=== PATIENT | male | born 1935 | race Caucasian/White ===

== ENCOUNTER → 2018-08-31 | Outpatient (CLI) | payer MEDICARE ==
[~2018-08-31] MED LIST: /PANT40TA OR; /WARF25TA OR; /WARF5TA OR; ACET25TA12 PO; ACET65TA OR; ALEV220T26 PO; ATOR40TA75 PO; BENA20TA8 PO; BENZEPRIL; BENZEPRIL OR; DOCU100C16 PO; FLOM0.4C39 PO; HYDR25TA6 OR; HYDR25TAB PO; LEVO88TA4 OR; MULTIVIT; PERC5TAB8 OR; PERC7.5T8 OR; PRAV20TA2 OR; SIMV10TA2 OR; SIMV40TA2 PO; STOOL SOFTNER OR; VIT D 2000; VITA50005 PO; [UNRECOGNIZED DRUG - OTHER]; aleve; stool softner
--- NOTE | 2018-08-31 20:17 | REP ---
Right hip four views: Comparison is 03/26/2016. There is demineralization. There is markedly advanced osteoarthritis with acetabular and femoral head deformity and large osteophytes. There is virtually no remaining joint space. There is no significant interval change. Impression: Markedly advanced deforming osteoarthritis. Left hip four views: Comparison is 2015. There is a total hip arthroplasty with the components tightly applied and in in satisfactory position alignment on all views. There is demineralization. No fracture or dislocation. No interval change. Electronically Signed by Florencio Chun MD 08/31/2018 08:09 P
== END ==
LOC: M WUC 19:18
PROVIDERS: ATTEND Physician Assistant
DX: M13.851 Other specified arthritis, right hip (principal); Z96.641 Presence of right artificial hip joint

== ENCOUNTER 2018-09-01 13:01 | Emergency (ER) | payer MEDICARE ==
[~2018-09-01] VITALS: Ht 167.6 cm; Wt 79.6 kg
[~2018-09-01 13:01] MED LIST changes: -ACET25TA12 PO; -SIMV40TA2 PO; -VITA50005 PO
[2018-09-01] MEDS ORDERED: VITA50005 PO (13:22)
[2018-09-01] MEDS ORDERED: SIMV40TA2 PO (13:22)
[2018-09-01] MEDS ORDERED: ACET25TA12 PO (13:22)
[2018-09-01 14:45] LABS: BASO % 0.5 % (0.0-1.0); EOS # 0.2 10^3/uL (0.0-0.50); HEMATOCRIT 40.4 % (42.0-52.0); HEMOGLOBIN 13.3 g/dl (13.5-17.5); LYMPH # 1.1 10^3/uL (1.5-4.5); LYMPH % 14.7 % (24.0-44.0); MEAN CORPUSCULAR HGB CONC 32.9 g/dl (32.0-36.5); MEAN CORPUSCULAR VOLUME 97.1 fl (80.0-96.0); MONO # 0.8 10^3/uL (0.0-0.8); MONO % 10.8 % (0.0-5.0); NEUTROPHILS # 5.3 10^3/uL (1.8-7.7); NEUTROPHILS % 71.9 % (36.0-66.0); PLATELET COUNT, AUTOMATED 262 10^3/uL (150-450); RED BLOOD COUNT 4.16 10^6/uL (4.30-6.10); WHITE BLOOD COUNT 7.4 10^3/uL (4.0-10.0)
[2018-09-01 14:46] LABS: VENOUS BASE EXCESS 1.2 (-2.0-2.0); VENOUS HCO3 29.1 MEQ/L (23.0-27.0); VENOUS O2 SATURATION 55.8 % (60.0-80.0); VENOUS PARTIAL PRESSURE CO2 60.2 mmHg (38.0-50.0); VENOUS PARTIAL PRESSURE O2 31.2 mmHg (30.0-50.0); VENOUS PH 7.302 UNITS (7.330-7.430); VENOUS STANDARD HCO3 24.5 MEQ/L; VENOUS TOTAL CO2 30.9 MEQ/L (24.0-28.0)
[2018-09-01 15:02] LABS: INR 0.92; PROTHROMBIN TIME 12.5 SECONDS (12.1-14.4)
--- NOTE | 2018-09-01 15:05 | REP ---
PORTABLE CHEST: Two AP portable views of the chest are performed. COMPARISON: 03/25/2016. The heart is upper limits of normal in size. There is mild increase in the bibasilar interstitial markings which is unchanged and chronic in nature. No new infiltrate is seen. Mediastinal silhouette is unchanged. IMPRESSION: No acute pulmonary disease. Electronically Signed by Florencio Julio MD 09/01/2018 04:14 P
[2018-09-01 15:19] LABS: ALBUMIN 3.4 GM/DL (3.2-5.2); ALT/SGPT 23 U/L (12-78); BILIRUBIN,DIRECT 0.2 MG/DL (0.0-0.2); BILIRUBIN,TOTAL 0.4 MG/DL (0.2-1.0); BLOOD UREA NITROGEN 23 MG/DL (7-18); CALCIUM LEVEL 8.5 MG/DL (8.8-10.2); CARBON DIOXIDE LEVEL 29 MEQ/L (21-32); CHLORIDE LEVEL 104 MEQ/L (98-107); CREATININE FOR GFR 0.96 MG/DL (0.70-1.30); GLOMERULAR FILTRATION RATE > 60.0 (>35); GLUCOSE, FASTING 94 MG/DL (70-100); NT-PRO BNP 169 PG/ML (<450); POTASSIUM SERUM 4.3 MEQ/L (3.5-5.1); SODIUM LEVEL 139 MEQ/L (136-145); TOTAL PROTEIN 6.6 GM/DL (6.4-8.2)
[2018-09-01 16:00] VITALS: BP 155/72
--- NOTE | 2018-09-02 19:24 | ECGEPIP ---
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
== END 2018-09-01 16:17 | disposition home or self-care (01) ==
LOC: M ED 13:01
DX: R60.0 Localized edema (principal)

== ENCOUNTER 2018-10-30 13:59 | Inpatient (IN) | payer MEDICARE ==
[~2018-10-30] VITALS: Ht 172.7 cm; Wt 84.7 kg
[~2018-10-30 13:59] MED LIST changes: -/PANT40TA OR; -/WARF25TA OR; -/WARF5TA OR; +ACET25TA12 PO; +COUM1TAB17 OR; +COUM1TAB18 OR; +HYDR-2541 PO; -HYDR25TAB PO; +PROT1TAB2 OR; +SIMV40TA2 PO; +VITA50005 PO
[2018-10-30] MEDS ORDERED: KEFL500C17 PO (15:14)
[2018-10-30 17:57] LABS: BASO % 0.4 % (0.0-1.0); EOS # 0.5 10^3/uL (0.0-0.50); EOS % 6.7 % (0.0-3.0); HEMATOCRIT 40.5 % (42.0-52.0); HEMOGLOBIN 13.1 g/dl (13.5-17.5); LYMPH # 1.4 10^3/uL (1.5-4.5); LYMPH % 19.7 % (24.0-44.0); MEAN CORPUSCULAR HEMOGLOBIN 31.5 pg (27.0-33.0); MEAN CORPUSCULAR HGB CONC 32.3 g/dl (32.0-36.5); MEAN CORPUSCULAR VOLUME 97.4 fl (80.0-96.0); MONO # 0.6 10^3/uL (0.0-0.8); MONO % 8.5 % (0.0-5.0); NEUTROPHILS # 4.6 10^3/uL (1.8-7.7); NEUTROPHILS % 64.6 % (36.0-66.0); PLATELET COUNT, AUTOMATED 251 10^3/uL (150-450); RED BLOOD COUNT 4.16 10^6/uL (4.30-6.10); WHITE BLOOD COUNT 7.1 10^3/uL (4.0-10.0)
[2018-10-30 18:16] LABS: ERYTHROCYTE SEDIMENTATION RATE 33 mm/hr (0-20)
[2018-10-30 18:17] LABS: BLOOD UREA NITROGEN 20 MG/DL (7-18); C REACTIVE PROTEIN QUANTITATIV < 0.30 MG/DL (0.00-0.30); CALCIUM LEVEL 8.5 MG/DL (8.8-10.2); CARBON DIOXIDE LEVEL 31 MEQ/L (21-32); CHLORIDE LEVEL 107 MEQ/L (98-107); CREATININE FOR GFR 0.87 MG/DL (0.70-1.30); GLOMERULAR FILTRATION RATE > 60.0 (>35); GLUCOSE, FASTING 91 MG/DL (70-100); POTASSIUM SERUM 4.4 MEQ/L (3.5-5.1); SODIUM LEVEL 140 MEQ/L (136-145)
--- NOTE | 2018-10-30 18:22 | REP ---
REASON: Cough. COMPARISON: Multiple. The latest 09/01/2018. The technique utilized in obtaining the radiograph has magnified the cardiac silhouette and accentuated the interstitial markings. There is no significant change from the prior exam other than technique. The lung baker are hypo-expanded further accentuating the basilar interstitial markings. The pleural angles are sharp. There is cardiomegaly and accentuated by technique. No acute patchy parenchymal opacities have developed. There is no change in the osseous structures. IMPRESSION:Chronic changes. Electronically Signed by Leonardo Durán DO 10/30/2018 06:40 P
--- NOTE | 2018-10-30 18:27 | REP ---
REASON: Pain and swelling. TECHNIQUE: Multiple ultrasonographic images of the deep venous structures of the right thigh were obtained from the common femoral vein to the popliteal vein along with Doppler interrogation and color flow Doppler images. FINDINGS: There is no abnormal echogenic material seen within any of the visualized deep venous structures that would suggest acute thrombosis. Coaptation is unremarkable throughout. Doppler interrogation shows an expected response to respiratory variability and augmentation. The color flow images show what appears to be a normal vascular pattern throughout. Multiple lymph nodes are seen in the groin which need to be correlated clinically. The largest measuring 3.5 x 1.5 x 1.3 cm. IMPRESSION: There is no ultrasonographic evidence of deep venous thrombosis involving any of the visualized deep venous structures of the right thigh, as described above. Electronically Signed by Leonardo Durán DO 10/30/2018 06:45 P
[2018-10-30] MEDS ORDERED: cefTRIAXone SOD 1 GM in D5W MINI-BAG PLUS 50 ML IV ONE (18:30)
[2018-10-30] MEDS ORDERED: IPRATROPIUM 0.5MG/ALBUTEROL 2.5MG INH SOL UD 3ML (DUONEB)(J7620) NEB PRN (19:15)
--- NOTE | 2018-10-30 19:23 | HPEPDOC ---
General Date of Admission 10/30/2018 Chief Complaint The patient is a 83-year-old male who presented to the ER with complaints of right leg redness and swelling History of Present Illness Patient is an 83 -year-old male with a PMHx of HTN, DLP, BPH who presented to the ER with worsening redness of his right leg. Patient noted that in early August, he had fallen and sustained an injury of his left hip and developed an skin injury that developed into an ulcer. At that time, patient was given furosemide and antibiotics and discharge home. Patient was doing well over last several months. Patient had seen Dr. Horner as an outpatient for his left ulcer, however this has completely resolved. The family notes that on patient had redness and swelling of his right leg and foot. [facility] and was prescribed Keflex. A note that there is been no improvement in his redness and swelling. Family denies any fevers; has had chills at home. Patient denies any pain of his right leg, but does report itching. Patient denies chest pain, shortness of breath. Patient does report a cough with sputum production. Describes the sputum as yellow without any evidence of blood. He denies any nausea, vomiting, abdominal pain, constipation, diarrhea or any discomfort with urination. Family does note that the patients urine has been very foul-smelling prior to antibiotics. , However, this appears to have resolved. Patient also wears a condom catheter and has been using it for last few weeks. Patient has noted a poor appetite, however, denies any significant change in his weight. Home Medications Scheduled Acetaminophen/Diphenhydramine (Acetaminophen Pm Caplet) 1 Tab Tab, 1 TAB PO DAILY, (Reported) Benazepril HCl (Benazepril HCl) 20 Mg Tab, 20 MG PO DAILY, (Reported) Cephalexin (Keflex) 500 Mg Capsule, 500 MG PO QID, (Reported) PATIENT STATED THAT HE TOOK LAST DOSE AT 1000 AND WILL NOT BE TAKING ANYMORE. STARTED TAKING IN AUGUST. Ergocalciferol (Vitamin D2) (Vitamin D2) 50,000 Unit Cap, 50,000 UNIT PO Q2WK, (Reported) Simvastatin (Simvastatin) 40 Mg Tab, 40 MG PO DAILY, (Reported) Tamsulosin HCl (Flomax) 0.4 Mg Cap, 0.4 MG PO DAILY, (Reported) Allergies Coded Allergies: No Known Drug Allergies (Verified Allergy, Unknown, 10/30/18) Past Medical History Medical History HTN, DLP, BPH Surgical History Left hip replacement in 2009 Family History - Mother with history of parkinsonism - Father with history of lung cancer Social History - Denies the use of alcohol or illicit drugs; patient is a smoker of about 60 years at 1 PPD - Denies recent travel or sick contacts - Lives with significant other - 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; 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 Review of Systems Other systems 10 point review of systems complete; all negative otherwise stated in HPI Vital Signs - Vitals: BP 145/63, HR 17, RR 17, Sat 98% RA, Temp 97.9F - General: Lying in bed, No acute distress, Speaking in full sentences, AAOx3 - HEENT: NC, AT, PERRLA, EOMI - CVS: RRR, +S1S2 - Lungs: Fair air entry bilaterally, auscultation reveals bilateral wheezing without evidence of rhonchi or rales - Abdomen: Soft, Non-distended, Non-tender - Extremities: 1+ edema at right leg, no edema of L leg, No calf tenderness - Neuro: No focal motor or sensory deficit - Skin: Area of redness around right foot and extending 2/3 up leg Laboratory Data Labs 24H Laboratory Tests 2 10/30/18 17:36: Immature Granulocyte % (Auto) 0.1, White Blood Count 7.1, Red Blood Count 4.16L, Hemoglobin 13.1L, Hematocrit 40.5L, Mean Corpuscular Volume 97.4H, Mean Corpuscular Hemoglobin 31.5, Mean Corpuscular Hemoglobin Concent 32.3, Red Cell Distribution Width 12.8, Platelet Count 251, Neutrophils (%) (Auto) 64.6, Lymphocytes (%) (Auto) 19.7L, Monocytes (%) (Auto) 8.5H, Eosinophils (%) (Auto) 6.7H, Basophils (%) (Auto) 0.4, Neutrophils # (Auto) 4.6, Lymphocytes # (Auto) 1.4L, Monocytes # (Auto) 0.6, Eosinophils # (Auto) 0.5, Basophils # (Auto) 0.0, Nucleated Red Blood Cells % (auto) 0.0, Erythrocyte Sedimentation Rate 33H, Anion Gap 2L, Glomerular Filtration Rate > 60.0, Blood Urea Nitrogen 20H, Creatinine 0.87, Sodium Level 140, Potassium Level 4.4, Chloride Level 107, Carbon Dioxide Level 31, Calcium Level 8.5L, C-Reactive Protein, Quantitative < 0.30 CBC/BMP Laboratory Tests 10/30/18 17:36 Red Blood Count 4.16 L, Mean Corpuscular Volume 97.4 H, Mean Corpuscular Hemoglobin 31.5, Mean Corpuscular Hemoglobin Concent 32.3, Red Cell Distribution Width 12.8, Neutrophils (%) (Auto) 64.6, Lymphocytes (%) (Auto) 19.7 L, Monocytes (%) (Auto) 8.5 H, Eosinophils (%) (Auto) 6.7 H, Basophils (%) (Auto) 0.4, Neutrophils # (Auto) 4.6, Lymphocytes # (Auto) 1.4 L, Monocytes # (Auto) 0.6, Eosinophils # (Auto) 0.5, Basophils # (Auto) 0.0, Calcium Level 8.5 L Microbiology Microbiology 10/30/18 Blood Culture, Received Pending 10/30/18 Blood Culture, Received Pending Plan / VTE VTE Prophylaxis Ordered?: Yes Plan Plan Right lower extremity swelling / redness - likely 2/2 cellulitis, unlikely 2/2 DVT - Presented to the emergency room after he had failed antibiotic therapy as an outpatient - Patient has received [facility] the [facility] has reported that the redness of his leg as progressing upward - Patient remains hemodynamically stable and afebrile - No evidence of leukocytosis; No CRP elevation - Duplex US 10/30: Negative for DVT - Will demarcate area of cellulitis with surgical marker - Will start Ceftaroline (re: MRSA coverage) Wheezing - likely 2/2 obstructive lung disease - Patient has reported a [id number] history of smoking - Reports that he does not use any inhalers as an outpatient - Physical with diffuse expiratory wheezing noted - Saturating well on room air - CXR 10/30: Chronic changes. - Will start Duoneb therapy and Solumedrol 40 q8h HTN - Blood pressure appears moderately controlled - Will c/w Benazapril with holding parameters DLP - c/w Simvastatin BPH - c/w Tamsulosin DVT prophylaxis - Will start LoveLEANNA Burger MD Oct 30, 2018 19:23
[2018-10-30] MEDS ORDERED: methylPREDNISolone INJ 125 MG/2 ML VIAL (J2930) IV SCH (20:00)
[2018-10-30 21:19] VITALS: BP 140/76
[2018-10-30] MEDS: methylPREDNISolone INJ 40 MG/1 ML VIAL (J2920) IV SCH (21:46)
[2018-10-30] MEDS: IPRATROPIUM 0.5MG/ALBUTEROL 2.5MG INH SOL UD 3ML (DUONEB)(J7620) NEB SCH (22:20)
[2018-10-31] MEDS: IPRATROPIUM 0.5MG/ALBUTEROL 2.5MG INH SOL UD 3ML (DUONEB)(J7620) NEB SCH ×4 (01:36→20:14)
[2018-10-31] MEDS: methylPREDNISolone INJ 40 MG/1 ML VIAL (J2920) IV SCH ×3 (05:16→20:12)
[2018-10-31] MEDS: CEFTAROLINE FOSAMIL 600 MG in D5W MINI-BAG PLUS 50 ML IV SCH ×2 (05:16→17:22)
[2018-10-31 06:00] VITALS: BP 131/67
[2018-10-31 06:38] LABS: HEMATOCRIT 38.6 % (42.0-52.0); HEMOGLOBIN 12.6 g/dl (13.5-17.5); MEAN CORPUSCULAR HEMOGLOBIN 31.3 pg (27.0-33.0); MEAN CORPUSCULAR HGB CONC 32.6 g/dl (32.0-36.5); MEAN CORPUSCULAR VOLUME 95.8 fl (80.0-96.0); PLATELET COUNT, AUTOMATED 250 10^3/uL (150-450); RED BLOOD COUNT 4.03 10^6/uL (4.30-6.10); WHITE BLOOD COUNT 6.3 10^3/uL (4.0-10.0)
[2018-10-31 06:57] LABS: BLOOD UREA NITROGEN 22 MG/DL (7-18); CALCIUM LEVEL 8.5 MG/DL (8.8-10.2); CARBON DIOXIDE LEVEL 27 MEQ/L (21-32); CHLORIDE LEVEL 108 MEQ/L (98-107); CREATININE FOR GFR 0.81 MG/DL (0.70-1.30); GLOMERULAR FILTRATION RATE > 60.0 (>35); GLUCOSE, FASTING 154 MG/DL (70-100); POTASSIUM SERUM 4.2 MEQ/L (3.5-5.1); SODIUM LEVEL 143 MEQ/L (136-145)
[2018-10-31] MEDS ORDERED: ENOXAPARIN 40 MG/0.4 ML SYRINGE (J1650) SC SCH (09:00)
[2018-10-31] MEDS: SIMVASTATIN 40 MG TAB PO SCH (09:01)
[2018-10-31] MEDS: TAMSULOSIN 0.4 MG CAP PO SCH (09:01)
[2018-10-31] MEDS: BENAZEPRIL 20 MG TAB PO SCH (09:04)
[2018-10-31] MEDS: NICOTINE 21MG/24HR 1 EA TRANSDERMAL TD SCH (09:04)
[2018-10-31] MEDS ORDERED: ELIQ5TAB PO (10:45)
--- NOTE | 2018-10-31 10:54 | IPNPDOC ---
Date Seen The patient was seen on 10/31/18. Progress Note SUBJECTIVE: Routine EKG this am: new onset AFib rate controlled at 90. echo is pending. pt says,"I want to go home tomorrow. I'm pretty good on my feet." pt denies any history of falls at home. started on eliquis for new onset afib and metoprolol for rate control. awaiting hse. OBJECTIVE: PHYSICAL EXAMINATION: Vital Signs pls see below - General: Lying in bed, No acute distress, Speaking in full sentences, AAOx3 - HEENT: NC, AT, PERRLA, EOMI - CVS: irregularly irregular, +S1S2 - Lungs: Fair air entry bilaterally, auscultation reveals bilateral wheezing without evidence of rhonchi or rales - Abdomen: Soft, Non-distended, Non-tender - Extremities: 1+ edema at right leg, no edema of L leg, No calf tenderness - Neuro: No focal motor or sensory deficit - Skin: Area of redness around right foot and extending 2/3 up leg Laboratory Data, IMAGING STUDIES, MICROBIOLOGY: PLS SEE BELOW VTE Prophylaxis Ordered?: Yes ASSESSMENT AND PLAN: Patient is an 83 -year-old male with a PMHx of HTN, DLP, BPH who presented to the ER with worsening redness of his right leg.Patient noted that in early August, he had fallen and sustained an injury of his left hip and developed an skin injury that developed into an ulcer. At that time, patient was given furosemide and antibiotics and discharge home. Patient was doing well over last several months. Patient had seen Dr. Horner as an outpatient for his left ulcer, however this has completely resolved.The family notes that on day patient had redness and swelling of his right leg and foot. Patient had gone [facility] and was prescribed Keflex. A note that there is been no improvement in his redness and swelling. Family denies any fevers; has had chills at home. Patient denies any pain of his right leg, but does report itching. Patient denies chest pain, shortness of breath. Patient does report a cough with sputum production. Describes the sputum as yellow without any evidence of blood.He denies any nausea, vomiting, abdominal pain, constipation, diarrhea or any discomfort with urination. Family does note that the patients urine has been very foul-smelling prior to antibiotics. , However, this appears to have re solved. Patient also wears a condom catheter and has been using it for last few weeks.Patient has noted a poor appetite, however, denies any significant change in his weight. Right lower extremity swelling / redness - likely 2/2 cellulitis, unlikely 2/2 DVT - Presented to the emergency room after he had failed antibiotic therapy as an outpatient - Patient has received Keflex from from the [facility] has reported that the redness of his leg as progressing upward - Patient remains hemodynamically stable and afebrile - No evidence of leukocytosis; No CRP elevation - Duplex US 10/30: Negative for DVT - Will demarcate area of cellulitis with surgical marker - Will start Ceftaroline (re: MRSA coverage) New Afib, -metoprolol for rate control -echo pending -renally dosed eliquis. probable copd exacerbation - Patient has reported a [id number] history of smoking - Reports that he does not use any inhalers as an outpatient - Physical with diffuse expiratory wheezing noted - Saturating well on room air - CXR 10/30: Chronic changes. - Will start Duoneb therapy and Solumedrol 40 q8h HTN - Blood pressure appears moderately controlled - Will c/w Benazapril with holding parameters DLP - c/w Simvastatin BPH - c/w Tamsulosin DVT prophylaxis on eliquis. VS, I&O, 24H, Fishbone Vital Signs/I&O Vital Signs Date Time Temp Pulse Resp B/P (MAP) Pulse Ox O2 Delivery O2 Flow Rate FiO2 10/31/18 09:04 132/68 10/31/18 06:00 97.8 65 18 95 10/30/18 21:09 Room Air I&O- Last 24 Hours up to 6 AM 10/31/18 06:00 Intake Total 630 ml Output Total 900 ml Balance -270 ml Laboratory Data 24H LABS Laboratory Tests 2 10/30/18 17:36: Immature Granulocyte % (Auto) 0.1, White Blood Count 7.1, Red Blood Count 4.16L, Hemoglobin 13.1L, Hematocrit 40.5L, Mean Corpuscular Volume 97.4H, Mean Corpuscular Hemoglobin 31.5, Mean Corpuscular Hemoglobin Concent 32.3, Red Cell Distribution Width 12.8, Platelet Count 251, Neutrophils (%) (Auto) 64.6, Lymphocytes (%) (Auto) 19.7L, Monocytes (%) (Auto) 8.5H, Eosinophils (%) (Auto) 6.7H, Basophils (%) (Auto) 0.4, Neutrophils # (Auto) 4.6, Lymphocytes # (Auto) 1.4L, Monocytes # (Auto) 0.6, Eosinophils # (Auto) 0.5, Basophils # (Auto) 0.0, Nucleated Red Blood Cells % (auto) 0.0, Erythrocyte Sedimentation Rate 33H, Anion Gap 2L, Glomerular Filtration Rate > 60.0, Blood Urea Nitrogen 20H, Creatinine 0.87, Sodium Level 140, Potassium Level 4.4, Chloride Level 107, Carbon Dioxide Level 31, Calcium Level 8.5L, C-Reactive Protein, Quantitative < 0.30 10/31/18 05:27: Nucleated Red Blood Cells % (auto) 0.0, Anion Gap 8, Glomerular Filtration Rate > 60.0, Blood Urea Nitrogen 22H, Creatinine 0.81, Sodium Level 143, Potassium Level 4.2, Chloride Level 108H, Carbon Dioxide Level 27, Calcium Level 8.5L, Magnesium Level 2.0 CBC/BMP Laboratory Tests 10/30/18 17:36 Red Blood Count 4.16 L, Mean Corpuscular Volume 97.4 H, Mean Corpuscular H emoglobin 31.5, Mean Corpuscular Hemoglobin Concent 32.3, Red Cell Distribution Width 12.8, Neutrophils (%) (Auto) 64.6, Lymphocytes (%) (Auto) 19.7 L, Monocytes (%) (Auto) 8.5 H, Eosinophils (%) (Auto) 6.7 H, Basophils (%) (Auto) 0.4, Neutrophils # (Auto) 4.6, Lymphocytes # (Auto) 1.4 L, Monocytes # (Auto) 0.6, Eosinophils # (Auto) 0.5, Basophils # (Auto) 0.0, Calcium Level 8.5 L 10/31/18 05:27 Red Blood Count 4.03 L, Mean Corpuscular Volume 95.8, Mean Corpuscular Hemoglo bin 31.3, Mean Corpuscular Hemoglobin Concent 32.6, Red Cell Distribution Width 12.6, Calcium Level 8.5 L Microbiology Microbiology 10/30/18 Blood Culture, Received Pending 10/30/18 Blood Culture, Received Pending JAMAAL MCKEON MD Oct 31, 2018 09:12
[2018-10-31] MEDS: APIXABAN 5 MG TAB (ELIQUIS) PO SCH ×2 (12:20→20:12)
[2018-10-31] MEDS: METOPROLOL TART 12.5 MG PER 1/2 TAB PO SCH ×2 (12:21→20:13)
[2018-10-31 14:00] VITALS: BP 147/65
[2018-10-31 20:13] VITALS: BP 128/63
[2018-10-31 22:00] VITALS: BP 128/63
[2018-11-01] MEDS: IPRATROPIUM 0.5MG/ALBUTEROL 2.5MG INH SOL UD 3ML (DUONEB)(J7620) NEB SCH ×3 (02:00→13:06)
[2018-11-01] MEDS: methylPREDNISolone INJ 40 MG/1 ML VIAL (J2920) IV SCH ×2 (05:22→11:43)
[2018-11-01] MEDS: CEFTAROLINE FOSAMIL 600 MG in D5W MINI-BAG PLUS 50 ML IV SCH (05:22)
[2018-11-01 06:00] VITALS: BP 142/64
[2018-11-01 06:37] LABS: HEMATOCRIT 34.8 % (42.0-52.0); HEMOGLOBIN 11.5 g/dl (13.5-17.5); MEAN CORPUSCULAR HEMOGLOBIN 31.8 pg (27.0-33.0); MEAN CORPUSCULAR VOLUME 96.1 fl (80.0-96.0); PLATELET COUNT, AUTOMATED 237 10^3/uL (150-450); RED BLOOD COUNT 3.62 10^6/uL (4.30-6.10); WHITE BLOOD COUNT 16.3 10^3/uL (4.0-10.0)
[2018-11-01 07:03] LABS: BLOOD UREA NITROGEN 31 MG/DL (7-18); CALCIUM LEVEL 8.1 MG/DL (8.8-10.2); CARBON DIOXIDE LEVEL 24 MEQ/L (21-32); CHLORIDE LEVEL 106 MEQ/L (98-107); CREATININE FOR GFR 1.09 MG/DL (0.70-1.30); GLOMERULAR FILTRATION RATE > 60.0 (>35); GLUCOSE, FASTING 129 MG/DL (70-100); MAGNESIUM LEVEL 1.9 MG/DL (1.8-2.4); POTASSIUM SERUM 4.2 MEQ/L (3.5-5.1); SODIUM LEVEL 139 MEQ/L (136-145)
[2018-11-01 08:30] VITALS: BP 138/63
[2018-11-01] MEDS: APIXABAN 5 MG TAB (ELIQUIS) PO SCH (09:55)
[2018-11-01] MEDS: SIMVASTATIN 40 MG TAB PO SCH (09:55)
[2018-11-01] MEDS: TAMSULOSIN 0.4 MG CAP PO SCH (09:55)
[2018-11-01] MEDS: METOPROLOL TART 12.5 MG PER 1/2 TAB PO SCH (09:56)
[2018-11-01] MEDS: NICOTINE 21MG/24HR 1 EA TRANSDERMAL TD SCH (09:56)
[2018-11-01] MEDS: BENAZEPRIL 20 MG TAB PO SCH (09:56)
[2018-11-01 13:45] VITALS: BP 142/76
[2018-11-01] MEDS ORDERED: ATEN25TA PO (15:18)
[2018-11-01] MEDS ORDERED: BACITAB PO (15:18)
[2018-11-01] MEDS ORDERED: KEFL500C17 PO (15:18)
[2018-11-01] MEDS ORDERED: HOLTER MONITOR XX (15:20)
--- NOTE | 2018-11-01 15:26 | DS.PDOC ---
Discharge Summary General Date of Admission Oct 30, 2018 at 19:04 Date of Discharge November 01, 2018 Discharge Summary DISCHARGE DIAGNOSES: Right LE cellulitis New onset Atrial Fibrillation Acute Copd exacerbation HTN dyslipidemia BPH Steroid-induced leukocytosis DISCHARGE MEDS: PLS SEE BELOW DISCHARGE INSTRUCTIONS: PCP FU IN 5 DAYS HOLD ATENOLOL FOR PULSE<60 OR BLOOD PRESSURE<100MMHG HISTORY OF PRESENTING ILLNESS: Patient is an 83 -year-old male with a PMHx of HTN, DLP, BPH who presented to the ER with worsening redness of his right leg.Patient noted that in early August, he had fallen and sustained an injury of his left hip and developed an skin injury that developed into an ulcer. At that time, patient was given furosemide and antibiotics and discharge home. Patient was doing well over last several months. Patient had seen Dr. Horner as an outpatient for his left ulcer, however this has completely resolved.The family notes that on patient had redness and swelling of his right leg and foot. Patient had [facility] and was prescribed Keflex. A note that there is been no improvement in his redness and swelling. Family denies any fevers; has had chills at home. Patient denies any pain of his right leg, but does report itching. Patient denies chest pain, shortness of breath. Patient does report a cough with sputum production. Describes the sputum as yellow without any evidence of blood.He denies any nausea, vomiting, abdominal pain, constipation, diarrhea or any discomfort with urination. Family does note that the patients urine has been very foul-smelling prior to antibiotics. , However, this appears to have resolved. Patient also wears a condom catheter and has been using it for last few weeks.Patient has noted a poor appetite, however, denies any significant change in his weight. HOSPITAL COURSE: Right lower extremity cellulitis, - Presented to the emergency room after he had failed antibiotic therapy as an outpatient - Patient has received [facility] has reported that the redness of his leg as progressing upward - Patient remains hemodynamically stable and afebrile - No evidence of leukocytosis; No CRP elevation - Duplex US 10/30: Negative for DVT - Will demarcate area of cellulitis with surgical marker - s/p Ceftaroline (re: MRSA coverage) - outpt keflex x 7 days New Afib, -s/p metoprolol 12.5 mg bid. on atenolol 25 mg daily -pt refused echo as he was adamant to be discharged dinesh. -renally dosed eliquis. copd exacerbation - Patient has reported a [id number] history of smoking - Reports that he does not use any inhalers as an outpatient - Physical with diffuse expiratory wheezing noted - Saturating well on room air - CXR 10/30: Chronic changes. - s/p Duoneb therapy and Solumedrol 40 q8h -rapid prednisone taper HTN - Blood pressure appears moderately controlled - Will c/w Benazapril with holding parameters DLP - c/w Simvastatin BPH - c/w Tamsulosin DVT prophylaxis on eliquis. PHYSICAL EXAMINATION: Vital Signs pls see below - General: Lying in bed, No acute distress, Speaking in full sentences, AAOx3 - HEENT: NC, AT, PERRLA, EOMI - CVS: irregularly irregular, +S1S2 - Lungs: Fair air entry bilaterally, auscultation reveals bilateral wheezing without evidence of rhonchi or rales - Abdomen: Soft, Non-distended, Non-tender - Extremities: 1+ edema at right leg, no edema of L leg, No calf tenderness - Neuro: No focal motor or sensory deficit - Skin: Area of redness around right foot and extending 2/3 up leg Laboratory Data, IMAGING STUDIES, MICROBIOLOGY: PLS SEE BELOW VTE Prophylaxis Ordered?: Yes TIME SPENT ON DISCHARGE: 30 MIN. Vital Signs/I&Os Vital Signs Date Time Temp Pulse Resp B/P (MAP) Pulse Ox O2 Delivery O2 Flow Rate FiO2 11/01/18 13:45 97.6 92 20 142/76 (98) 97 10/30/18 21:09 Room Air I&O- Last 24 Hours up to 6 AM 11/01/18 06:00 Intake Total 1252 ml Output Total 850 ml Balance 402 ml Laboratory Data Labs 24H Laboratory Tests 2 11/01/18 05:30: Nucleated Red Blood Cells % (auto) 0.0, Anion Gap 9, Glomerular Filtration Rate > 60.0, Blood Urea Nitrogen 31H, Creatinine 1.09, Sodium Level 139, Potassium Level 4.2, Chloride Level 106, Carbon Dioxide Level 24, Calcium Level 8.1L, Magnesium Level 1.9 CBC/BMP Laboratory Tests 11/01/18 05:30 Red Blood Count 3.62 L, Mean Corpuscular Volume 96.1 H, Mean Corpuscular Hemoglobin 31.8, Mean Corpuscular Hemoglobin Concent 33.0, Red Cell Distribution Width 12.8, Calcium Level 8.1 L Microbiology Microbiology 10/30/18 Blood Culture - Preliminary, Resulted No growth after 24 hours . All specim... 10/30/18 Blood Culture - Preliminary, Resulted No growth after 24 hours . All specim... Discharge Medications Scheduled Acetaminophen/Diphenhydramine (Acetaminophen Pm Caplet) 1 Tab Tab, 1 TAB PO DAILY, (Reported) Apixaban (Eliquis) 5 Mg Tablet, 5 MG PO BID Atenolol (Atenolol) 25 Mg Tablet, 1 TAB PO DAILY Benazepril HCl (Benazepril HCl) 20 Mg Tab, 20 MG PO DAILY, (Reported) Cephalexin (Keflex) 500 Mg Capsule, 500 MG PO QID Ergocalciferol (Vitamin D2) (Vitamin D2) 50,000 Unit Cap, 50,000 UNIT PO Q2WK, (Reported) L.acidoph/L.bulg/B.bif/S.therm (Bacid Caplet) 1 Each Tablet, 1 TAB PO AC Simvastatin (Simvastatin) 40 Mg Tab, 40 MG PO DAILY, (Reported) Tamsulosin HCl (Flomax) 0.4 Mg Cap, 0.4 MG PO DAILY, (Reported) Allergies Coded Allergies: No Known Drug Allergies (Verified Allergy, Unknown, 10/30/18) JAMAAL MCKEON MD Nov 01, 2018 15:25
[2018-11-01] MEDS ORDERED: PRED10TA2 PO (15:29)
[2018-11-01] MEDS ORDERED: PROAAER10 INH (15:29)
--- NOTE | 2018-11-01 21:19 | ECGEPIP ---
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
--- NOTE | 2018-11-03 06:42 | ECHO ---
DATE OF PROCEDURE: 11/01/2018 DATE OF : 1935 AGE: 83 REFERRING PROVIDER: Dr. Lyssa Saeed PATIENT LOCATION: Room 3209 REASON FOR THE ECHOCARDIOGRAM: Cardiac dysrhythmia. 2D MEASUREMENTS: IVS: 1.3 cm LV: 4.1 cm LVPW: 1.3 cm LA: 3.9 cm Aorta: 3.3 cm IVC: 1.3 cm DOPPLER MEASUREMENTS: Peak velocity across the aortic valve: 1.8 m/s Peak velocity across the LVOT: 0.63 m/s Peak gradient across the aortic valve: 13 mmHg Mean gradient across the aortic valve: 6 mmHg Mitral E: 0.73 Mitral A: 0.99 Ratio: 0.7 Maximum tricuspid valve velocity: 2.3 m/s 2D COMMENTS: 1. Mildly increased left ventricular wall thickness with normal left ventricular size and a normal global left ventricular systolic function. The estimated left ventricular systolic ejection fraction is 65-70%. 2. Normal left atrium. Normal right atrium and right ventricle. 3. The atrial septum appeared to be normal without evidence of defect or shunt. 4. Normal aortic root. 5. A small pericardial effusion was noted, no evidence of cardiac tamponade. 6. Mildly calcified aortic valve with normal leaflet excursion. Mildly calcified mitral annulus with normal anterior mitral valve leaflet motion. Normal tricuspid valve. The pulmonic valve and proximal pulmonary artery branches were not well visualized. 7. The inferior vena cava was normal in size, central venous pressure is most likely normal. DOPPLER: It detects mild aortic regurgitation, trace mitral regurgitation and mild tricuspid regurgitation. The calculated pulmonary artery systolic pressure is about 30 mmHg. Abnormal relaxation pattern was noted across the mitral valve leaflets as well as the mitral valve annulus consistent with features of left ventricular diastolic dysfunction, grade 1. IMPRESSION: 1. Normal global left ventricular systolic function with mild concentric left ventricular hypertrophy. There are some features of left ventricular diastolic dysfunction manifested by abnormal relaxation. 2. Aortic valve sclerosis with mild aortic regurgitation and trivial aortic stenosis. 3. Mitral annulus calcification with trace mitral regurgitation. 4. Mild tricuspid regurgitation. 5. A small pericardial effusion was noted, no evidence of cardiac tamponade.
== END 2018-11-01 17:39 | disposition home health service (06) | DRG 603 ==
LOC: M ED 13:59 → M ED INP 19:04 → M MSPAV 21:19
PROVIDERS: ADMIT Internal Medicine; ATTEND General Practice
DX: L03.115 Cellulitis of right lower limb (principal); J44.1 Chronic obstructive pulmonary disease with (acute) exacerbation; I10 Essential (primary) hypertension; E78.5 Hyperlipidemia, unspecified; N40.0 Benign prostatic hyperplasia without lower urinary tract symptoms; Z79.899 Other long term (current) drug therapy; Z96.642 Presence of left artificial hip joint; F17.200 Nicotine dependence, unspecified, uncomplicated; I48.91 Unspecified atrial fibrillation

== ENCOUNTER 2019-04-19 16:58 | Emergency (ER) | payer MEDICARE ==
[~2019-04-19] VITALS: Ht 175.3 cm; Wt 83.2 kg
[~2019-04-19 16:58] MED LIST changes: +ATEN25TA PO; +BACITAB PO; +ELIQ5TAB PO; +HOLTER MONITOR XX; +KEFL500C17 PO; +PRED10TA2 PO; +PROAAER10 INH
[2019-04-19] MEDS ORDERED: ATEN25TA PO (17:16)
[2019-04-19] MEDS ORDERED: ROSU40TA4 PO (17:16)
[2019-04-19] MEDS ORDERED: K-TA10TA2 PO (17:16)
[2019-04-19 17:51] LABS: BASO % 0.3 % (0.0-1.0); EOS % 0.2 % (0.0-3.0); HEMATOCRIT 32.8 % (42.0-52.0); HEMOGLOBIN 10.7 g/dl (13.5-17.5); LYMPH % 6.3 % (24.0-44.0); MEAN CORPUSCULAR HEMOGLOBIN 32.9 pg (27.0-33.0); MEAN CORPUSCULAR HGB CONC 32.6 g/dl (32.0-36.5); MEAN CORPUSCULAR VOLUME 100.9 fl (80.0-96.0); MONO # 1.5 10^3/uL (0.0-0.8); MONO % 9.4 % (0.0-5.0); NEUTROPHILS # 13.1 10^3/uL (1.5-8.5); NEUTROPHILS % 83.1 % (36.0-66.0); PLATELET COUNT, AUTOMATED 191 10^3/uL (150-450); RED BLOOD COUNT 3.25 10^6/uL (4.30-6.10); WHITE BLOOD COUNT 15.8 10^3/uL (4.0-10.0)
--- NOTE | 2019-04-19 17:58 | REP ---
Portable chest, 05:39 p.m., single AP view with the the patient semi upright: Comparisons are 03/25/2016 and 10/30/2089. The lung baker are clear. The cardiac size is normal. The nathan, mediastinum, and skeletal structures are unremarkable. Impression: Negative portable chest. Electronically Signed by Florencio Chun MD 04/19/2019 05:49 P
--- NOTE | 2019-04-19 20:02 | REPVR ---
PROCEDURE INFORMATION: Exam: CT Head without contrast Exam date and time: 04/19/2019 7:36 PM Clinical history: 83 years old, male; Weakness, extremity TECHNIQUE: Imaging protocol: Computed tomography of the head without contrast. Radiation optimization: All CT scans at this facility use at least one of these dose optimization techniques: automated exposure control; mA and/or kV adjustment per patient size (includes targeted exams where dose is matched to clinical indication); or iterative reconstruction. COMPARISON: CT Head without contrast 03/25/2016 8:19 PM FINDINGS: Brain: There is parenchymal volume loss. White matter changes are demonstrated in the subcortical, centrum semiovale and periventricular white matter consistent with age related small vessel white matter angiopathic gliosis. Ventricles: The degree of ventricular dilatation is normal for age and/or degree of atrophy present. Bones/joints: Unremarkable. No acute fracture. Sinuses: Visualized sinuses are unremarkable. No fluid levels. Mastoid air cells: Visualized mastoid air cells are well aerated. Soft tissues: Unremarkable. IMPRESSION: 1. There is parenchymal volume loss. White matter changes are demonstrated in the subcortical, centrum semiovale and periventricular white matter consistent with age related small vessel white matter angiopathic gliosis. 2. The degree of ventricular dilatation is normal for age and/or degree of atrophy present. 3. No acute findings. Electronically signed by: Chapo Haas On 04/19/2019 20:01:39 PM
[2019-04-19 20:48] LABS: ALBUMIN 3.4 GM/DL (3.2-5.2); BILIRUBIN,DIRECT 0.4 MG/DL (0.0-0.2); BILIRUBIN,TOTAL 0.8 MG/DL (0.2-1.0); CALCIUM LEVEL 8.7 MG/DL (8.8-10.2); CK-MB VALUE MASS 3.4 NG/ML (<3.6); CREATININE FOR GFR 2.26 MG/DL (0.70-1.30); GLOMERULAR FILTRATION RATE 29.6 (>35); MB/CK RELATIVE INDEX 0.23 (< OR =4); POTASSIUM SERUM 4.1 MEQ/L (3.5-5.1); THYROID STIMULATING HORMONE 2.15 uIU/ML (0.358-3.740); TOTAL PROTEIN 6.7 GM/DL (6.4-8.2); TROPONIN I 0.05 NG/ML (< 0.10)
[2019-04-19 21:00] VITALS: BP 109/56
[2019-04-20] MEDS ORDERED: PROAAER10 INH (17:03)
[2019-04-20] MEDS ORDERED: BENA10TA PO (17:05)
[2019-04-20] MEDS ORDERED: POTA1TAB14 PO (17:05)
[2019-04-20] MEDS ORDERED: TORS10TA3 PO (17:07)
[2019-04-20] MEDS ORDERED: BACT800T5 PO (17:07)
== END 2019-04-19 21:22 | disposition left against medical advice (07) ==
LOC: EDBD 16:58 → M ED 16:58
DX: E87.2 Acidosis (principal); D72.829 Elevated white blood cell count, unspecified; R53.1 Weakness; W08.XXXA Fall from other furniture, initial encounter; Y92.89 Other specified places as the place of occurrence of the external cause; F17.210 Nicotine dependence, cigarettes, uncomplicated; Z88.1 Allergy status to other antibiotic agents; Z79.899 Other long term (current) drug therapy

== ENCOUNTER 2019-04-20 16:13 | Inpatient (IN) | payer MEDICARE ==
[~2019-04-20] VITALS: Ht 172.7 cm; Wt 84.9 kg
[2019-04-20] MEDS: TIOTROPIUM INHALER/CAPSULE (SPIRIVA) INH SCH (08:00)
[~2019-04-20 16:13] MED LIST changes: +K-TA10TA2 PO; +ROSU40TA4 PO
[2019-04-20] MEDS ORDERED: IPRATROPIUM 0.5MG/ALBUTEROL 2.5MG INH SOL UD 3ML (DUONEB)(J7620) NEB ONE (16:45)
[2019-04-20 16:49] LABS: VENOUS BASE EXCESS -1.7 (-2.0-2.0); VENOUS O2 SATURATION 77.8 % (60.0-80.0); VENOUS PARTIAL PRESSURE CO2 44.7 mmHg (38.0-50.0); VENOUS PARTIAL PRESSURE O2 43.6 mmHg (30.0-50.0); VENOUS PH 7.348 UNITS (7.330-7.430); VENOUS STANDARD HCO3 22.7 MEQ/L; VENOUS TOTAL CO2 25.4 MEQ/L (24.0-28.0)
[2019-04-20 16:53] LABS: BASO % 0.1 % (0.0-1.0); EOS % 0.5 % (0.0-3.0); HEMATOCRIT 31.3 % (42.0-52.0); HEMOGLOBIN 10.5 g/dl (13.5-17.5); LYMPH # 0.7 10^3/uL (1.5-5.0); LYMPH % 7.7 % (24.0-44.0); MEAN CORPUSCULAR HGB CONC 33.5 g/dl (32.0-36.5); MEAN CORPUSCULAR VOLUME 101.3 fl (80.0-96.0); MONO # 0.8 10^3/uL (0.0-0.8); MONO % 9.2 % (0.0-5.0); NEUTROPHILS # 7.1 10^3/uL (1.5-8.5); NEUTROPHILS % 81.9 % (36.0-66.0); PLATELET COUNT, AUTOMATED 176 10^3/uL (150-450); RED BLOOD COUNT 3.09 10^6/uL (4.30-6.10); WHITE BLOOD COUNT 8.7 10^3/uL (4.0-10.0)
[2019-04-20] MEDS ORDERED: PROAAER10 INH (17:03)
[2019-04-20] MEDS ORDERED: BENA10TA PO (17:05)
[2019-04-20] MEDS ORDERED: POTA1TAB14 PO (17:05)
[2019-04-20] MEDS ORDERED: TORS10TA3 PO (17:07)
[2019-04-20] MEDS ORDERED: BACT800T5 PO (17:07)
[2019-04-20 17:17] LABS: ALBUMIN 3.2 GM/DL (3.2-5.2); BILIRUBIN,DIRECT 0.3 MG/DL (0.0-0.2); BILIRUBIN,TOTAL 0.7 MG/DL (0.2-1.0); CALCIUM LEVEL 8.9 MG/DL (8.8-10.2); CK-MB VALUE MASS 2.5 NG/ML (<3.6); CREATININE FOR GFR 1.94 MG/DL (0.70-1.30); GLOMERULAR FILTRATION RATE 35.3 (>35); INR 1.12; MB/CK RELATIVE INDEX 0.29 (< OR =4); PARTIAL THROMBOPLASTIN TIME 32.6 SECONDS (25.0-38.4); POTASSIUM SERUM 4.2 MEQ/L (3.5-5.1); PROTHROMBIN TIME 14.1 SECONDS (11.8-14.0); TOTAL PROTEIN 6.4 GM/DL (6.4-8.2); TROPONIN I 0.05 NG/ML (< 0.10)
[2019-04-20 17:26] LABS: APPEARANCE, URINE TURBID (CLEAR); BACTERIA, URINE AUTO NEGATIVE (NEGATIVE); BILIRUBIN, URINE AUTO NEGATIVE (NEGATIVE); BLOOD, URINE BLOOD NEGATIVE (NEGATIVE); COLOR, URINE YELLOW (YELLOW); GLUCOSE, URINE (UA) AUTO NEGATIVE (NEGATIVE); KETONE, URINE AUTO TRACE mg/dL (NEGATIVE); LEUKOCYTE ESTERASE, URINE AUTO 3+ (NEGATIVE); MUCUS, URINE SMALL (NEGATIVE); NITRITE, URINE AUTO NEGATIVE (NEGATIVE); PROTEIN, URINE AUTO 3+ mg/dL (NEGATIVE); RBC, URINE AUTO 1 /HPF (0-3); SPECIFIC GRAVITY URINE AUTO 1.015 (1.002-1.035); SQUAMOUS EPITHELIAL CELL UR AU 0 /HPF (0-6); TRIPLE PHOSPHATE CRYSTALS SMALL; UROBILINOGEN, URINE AUTO 0.2 mg/dL (0.0-2.0); WBC, URINE AUTO 1 /HPF (0-3)
[2019-04-20 17:44] LABS: INFLUENZA A AMPLIFICATION NEGATIVE (NEGATIVE); INFLUENZA B AMPLIFICATION NEGATIVE (NEGATIVE)
[2019-04-20] MEDS ORDERED: ACETAMINOPHEN TAB 650MG DOSE (2X325MG) PO PRN (17:45)
[2019-04-20] MEDS ORDERED: NS 0.45% 1,000 ML IV SCH (18:00)
[2019-04-20] MEDS ORDERED: LEVALBUTEROL 1.25 MG/0.5 ML CONCENTRATE NEB NEB PRN (18:00)
--- NOTE | 2019-04-20 18:22 | REPVR ---
PROCEDURE INFORMATION: Exam: CT Chest Without Contrast Exam date and time: 04/20/2019 5:50 PM Clinical history: 83 years old, male; Shortness of breath; Additional info: SOB TECHNIQUE: Imaging protocol: Computed tomography of the chest without contrast. 3D rendering: MIP reconstructed images were created and reviewed. Radiation optimization: All CT scans at this facility use at least one of these dose optimization techniques: automated exposure control; mA and/or kV adjustment per patient size (includes targeted exams where dose is matched to clinical indication); or iterative reconstruction. COMPARISON: CR PORTABLE CHEST X-RAY 04/20/2019 4:40 PM FINDINGS: Lungs: There is bibasilar compressive atelectasis. Mild architectural changes in the upper lung zones suggests mild centrilobular emphysema. Reticular opacity in the posterior segment of the left upper lobe likely representing chronic fibrotic changes. Pleural space: Pleural thickening both lung bases, left greater than right. Heart: There is mild atherosclerotic calcification of the coronary arteries. Aorta: The aorta demonstrates mild atherosclerotic calcification. There is fusiform dilatation of the ascending thoracic aorta which measures 4 cm. maximally. There is no saccular component. Lymph nodes: Unremarkable. No enlarged lymph nodes. Adrenals: Right adrenal mass measures 2.5 x 2.6 cm. Left adrenal mass measures 1.8 x 1.8 cm. Findings not completely evaluated on this examination dedicated to the thorax. Further evaluation with opposed phase MRI would be helpful if clinically desired. Bones/joints: Diffuse decrease in bone mineralization consistent with osteoporosis or osteopenia. The spine demonstrates moderate degenerative changes. Soft tissues: Unremarkable. IMPRESSION: 1. Mild architectural changes in the upper lung zones suggests mild centrilobular emphysema. 2. There is fusiform dilatation of the ascending thoracic aorta which measures 4 cm. maximally. There is no saccular component. 3. Right adrenal mass measures 2.5 x 2.6 cm. Left adrenal mass measures 1.8 x 1.8 cm. Findings not completely evaluated on this examination dedicated to the thorax. Further evaluation with opposed phase MRI would be helpful if clinically desired. Electronically signed by: Chapo Haas On 04/20/2019 18:22:07 PM
[2019-04-20 18:41] LABS: POTASSIUM RANDOM URINE 40.5 MEQ/L
[2019-04-20] MEDS: CIPROFLOXACIN 200 MG in IV 1 EA IV SCH (19:00)
--- NOTE | 2019-04-20 19:04 | REPVR ---
PROCEDURE INFORMATION: Exam: US Retroperitoneal Limited, Kidneys Exam date and time: 04/20/2019 6:35 PM Clinical history: 83 years old, male; Other: Acute renal failure TECHNIQUE: Imaging protocol: Real-time ultrasound of the retroperitoneum with image documentation. Examination was focused on the kidneys. COMPARISON: No relevant prior studies available. FINDINGS: Right kidney: Right kidney measures 10.1 x 5.8 x 5.6 cm. Left kidney: Left kidney measures 10.2 x 4.6 x 5.7 cm. Bladder: Bladder empty at the time of scanning and as such could not be evaluated. Ureteral jets not demonstrated. IMPRESSION: Unremarkable examination of the kidneys. Electronically signed by: Chapo Haas On 04/20/2019 19:03:45 PM
[2019-04-20] MEDS ORDERED: NICOTINE POLACRILEX 2 MG GUM PO PRN (19:30)
[2019-04-20] MEDS: LEVALBUTEROL 1.25 MG/0.5 ML CONCENTRATE NEB NEB SCH (19:31)
[2019-04-20 19:40] VITALS: BP 132/59
--- NOTE | 2019-04-20 19:43 | HPE ---
DATE OF ADMISSION: 04/20/2019 PRIMARY CARE PROVIDER: [facility] ([place]) [facility]. CHIEF COMPLAINT: Increase in sleepiness, decreased energy, fatigue, weakness, foul-smelling urine. HISTORY OF PRESENT ILLNESS: This is an 83-year-old male who lives at home with his girlfriend with a condom catheter, BPH, dyslipidemia, hypertension, congestive heart failure, rhabdomyolysis, Lipitor-induced myositis. Had been having increased sleepiness at home, fatigue, and weakness for the past 1 month. According to the girlfriend who lives with him, they had seen their occasional babysitter on Tuesday with complaints of increasing shortness of breath. He is usually on torsemide with a dry weight of 186.6 pounds and was previously 194 pounds and was told to continue his torsemide at home. Patient had routine blood tests from the home care nurse yesterday, when he was found to be anemic, hemoglobin of 10.7 from previous hemoglobin of 13 in October 2018. They urged patient to come into the emergency room for further evaluation. Patient was seen in the emergency room (ER) yesterday and noted to have an elevated white count of 15,000. Urine was turbid, foul smelling with 2+ leukocyte esterase, 6 white blood cells (WBC), and 3+ bacteremia. He was prescribed Bactrim, but it was not picked up and did not receive a dose. Patient was also found to have a creatinine of 2.26 and was taking benazepril and torsemide at home and was instructed not to do so by the ER physician. Patient left against medical advice and had gone home. Patient otherwise denies any fever. He has had increasing shortness of breath, wheezing, and cough, which is clear and white. He could not get up for the past 2 days at home and has been in bed, unable to ambulate, which he usually does with a walker. He otherwise denies any nausea, vomiting, diarrhea. He continues to smoke a pack a day to one and one-half packs a day, but for the past 2 days has not wanted to have a cigarette. In the ER today, patient was willing to be evaluated and to stay for treatment. He was noted to have slightly improved creatinine, but 1.94. He has normal white count. Still anemic at 10.5 and hematocrit of 31 but denies any bright red blood per rectum, melena, or black, tarry stools. Cardiac markers are negative. Chest CT shows a mild centrilobular emphysema. He does have an ascending thoracic aorta, which measures 4 cm, and right adrenal mass is noted. Left adrenal mass is also noted. A repeat urinalysis (UA) shows turbid appearance with 3+ protein, trace ketones, 3+ leukocyte esterase, 1 WBC, and negative bacteremia. Blood culture is negative. Respiratory panel is pending. Hospitalist service was called to admit for acute renal failure, presumed urinary tract infection (UTI), and chronic obstructive pulmonary disease (COPD) exacerbation. PAST MEDICAL HISTORY: 1. Left ventricular diastolic dysfunction, ejection fraction (EF) of 65%-70%, mild aortic regurgitation, trivial aortic stenosis, trace mitral stenosis, mild tricuspid regurgitation, small pericardial effusion. 2. COPD with centrilobular emphysema. 3. Over 70 pack-year history of smoking. 4. Hypertension. 5. BPH. 6. Lower extremity cellulitis. 7. Dyslipidemia. PAST SURGICAL HISTORY: Left hip replacement in 2009. FAMILY HISTORY: Parkinsonism in the mother. Father with lung cancer. Still smokes a pack and a half a day for over 60 years. Denies recent travel. Lives with a girlfriend at home. 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 ALLERGIES: CEPHALEXIN, causing a rash. HOME MEDICATIONS: - ProAir two puffs every 4 as needed - vitamin D 50,000 units every 2 weeks - Bactrim one tablet twice a day, which he did not take - torsemide 10 mg daily, which he did not take last night after being found to be in acute renal failure - benazepril 10 mg at bedtime - acetaminophen/diphenhydramine one tablet at bedtime - atenolol 25 daily - potassium chloride 20 mEq daily - rosuvastatin 40 mg at bedtime - tamsulosin 0.4 mg daily REVIEW OF SYSTEMS: Per history of present illness (HPI). A 12-point system otherwise negative. PHYSICAL EXAMINATION: Temperature 100.3, pulse 77, respiratory rate 28, blood pressure 137/60, 100% non-rebreather, 94%-95% on room air. GENERAL: Patient is awake, alert, oriented to his name. He appears ill with no respiratory distress. No use of respiratory accessory muscles. He is disheveled appearing. No jugular venous distention. No thyromegaly. No cervical lymphadenopathy. Poor dentition. Dry mucous membranes. LUNGS: Bilateral coarse rhonchi and expiratory wheezing. HEART: S1, S2, sinus rhythm. Patient has a very faint systolic ejection murmur at the apex. ABDOMEN: Soft, nontender, nondistended. Positive bowel sounds. No rebound, guarding, or hepatosplenomegaly. EXTREMITIES: No clubbing, cyanosis, or any pitting edema. EKG shows sinus rhythm, ventricular rate of [address] depression. Cardiac markers: Troponin 0.05, MB fraction 2.5, total CK of 853. White count of 8.7, hemoglobin 10.5, hematocrit 31, platelet count of 176. Sodium 142, potassium 4.2, chloride 109, bicarbonate 24, BUN 36, creatinine 1.94, glucose of 86. Direct bilirubin 0.3, AST 38, ALT 28, alkaline phosphatase 82, total CK 853, MB fraction 2.5, troponin 0.05, albumin of 3.2. Urine culture and blood cultures are pending. IMAGING STUDY: Chest CT: Bibasilar compressive atelectasis, mild architectural changes in the upper lungs, suggest mild centrilobular emphysema. Reticular opacity in the posterior segment showing chronic fibrosis. Pleural thickening in both lung basis, left greater than right. Mild atherosclerotic calcification of the coronary arteries. Aorta: There is a fusiform dilatation of the ascending thoracic aorta, which measures 4 cm maximally. No saccular component. Right adrenal mass measures 2.5 x 2.6 cm. Left adrenal mass measures 1.8 x 1.8 cm. Findings not completely evaluated, dedicated to the thorax. Further evaluation with a post-phase MRI would be helpful if clinically desired. Diffuse decrease in bone mineralization consistent with osteoporosis or osteopenia. Spine demonstrates moderate degenerative changes. Unremarkable soft tissues. ASSESSMENT AND PLAN: This is an 83-year-old male with a history of diastolic heart failure with preserved ejection fraction, EF of 65%-70%, minimal aortic stenosis, tricuspid regurgitation, pulmonary hypertension, small pericardial effusion, centrilobular emphysema with active smoking, over a 70 pack-year history of smoking, dyslipidemia, hypertension, and BPH with chronic condom catheter. Was found to have acute kidney injury, most likely secondary to torsemide use for congestive heart failure and lisinopril. Patient denies any nonsteroidal anti-inflammatory drug (NSAID) use, any recent sore throat. He was found to be in acute kidney injury but signed out against medical advice on 04/19/2019. He now complains of shortness of breath. Was found to have chronic obstructive pulmonary disease (COPD) exacerbation with, again, acute kidney injury. Patient will be admitted as an inpatient for 2 midnights for the following issues. 1. Acute kidney injury. Patient's torsemide and angiotensin-converting enzyme (ANA) inhibitor will be held temporarily. Due to history of BPH, a renal ultrasound will be performed to rule out obstruction and hydronephrosis. Will continue with Mason catheter placement for now for strict intake and output and due to obstruction. Will do gentle hydration with 75 mL of normal saline with rechecking the metabolic panel every 6 hours until it is normal and monitoring patient's respiratory status. Avoid NSAIDs. Renally dose all medications. Strict intake and output and continue with daily weight checks. 2. COPD exacerbation. Patient has coarse rhonchi with centrilobular emphysema. Patient is currently on Solu-Medrol, IV ciprofloxacin, as well as nebulizer treatments with Xopenex to prevent tachycardia. At this time, Spiriva will also be given. Check respiratory panel. 3. Abnormal urinalysis with low-grade temperature of 100.3. Urine culture has been sent. Will empirically treat with IV Cipro, although urinalysis is not impressive. He does have foul-smelling urine, most likely due to dehydration. Due to allergy cephalexin causing a rash, we will stay with quinolones. Telemetry will be provided to monitor for QT prolongation. 4. Congestive heart failure, diastolic dysfunction. Ejection fraction 65%-70%. At this time patient will be monitored clinically as well as on telemetry for any fluid overload and arrhythmias. Per his occasional babysitter, patient did not have any atrial fibrillation previously; therefore, no anticoagulation is required. 5. Hypertension. Continue on atenolol for now. Will hold patient's ANA inhibitor due to acute kidney injury. 6. Acute encephalopathy due to uremia and COPD exacerbation. Patient's venous blood gas appears to be within normal limits. Will monitor further. 7. Anemia. Patient in October 2018 had a hemoglobin of 12-13, currently at 10 and 31. Will obtain iron studies, hemoccult stool. No acute indication for red blood cell (RBC) transfusion at this time. Will check thyroid-stimulating hormone (TSH) as well. 8. Deep vein thrombosis (DVT) prophylaxis with heparin subcutaneous. MTDD
--- NOTE | 2019-04-20 20:42 | REP ---
CHEST, SINGLE VIEW: Single view of the chest is performed and compared to prior study of 04/19/2019. There is mild cardiomegaly. There is mild bibasilar fibroatelectatic change which is stable. No new infiltrate is seen. Mediastinal silhouette is unchanged. IMPRESSION: Stable chronic findings and mild cardiomegaly. Electronically Signed by Florencio Julio MD 04/23/2019 11:22 P
[2019-04-20] MEDS: TAMSULOSIN 0.4 MG CAP PO SCH (20:57)
[2019-04-20] MEDS: DOCUSATE SODIUM 100 MG CAP PO SCH (20:57)
[2019-04-20] MEDS: ATENOLOL 25 MG TAB PO SCH (20:59)
[2019-04-20] MEDS: methylPREDNISolone INJ 125 MG/2 ML VIAL (J2930) IV SCH (21:00)
[2019-04-20] MEDS: POTASSIUM CHLORIDE 10 MEQ SR TABLET PO SCH (21:01)
[2019-04-20] MEDS: ROSUVASTATIN 10 MG TAB (CRESTOR) PO SCH (21:02)
[2019-04-20] MEDS: amLODIPine 5 MG TAB PO SCH (21:03)
[2019-04-20] MEDS: HEPARIN SOD (PORCINE) 5000 UNITS/ML VIAL SC SCH (21:04)
[2019-04-20] MEDS: NICOTINE 21MG/24HR 1 EA TRANSDERMAL TD SCH (21:09)
[2019-04-20 23:59] VITALS: BP 104/53
[2019-04-21] MEDS: LEVALBUTEROL 1.25 MG/0.5 ML CONCENTRATE NEB NEB SCH ×6 (00:07→20:38)
[2019-04-21 00:20] LABS: CALCIUM LEVEL 8.2 MG/DL (8.8-10.2); CREATININE FOR GFR 2.08 MG/DL (0.70-1.30); GLOMERULAR FILTRATION RATE 32.5 (>35); POTASSIUM SERUM 3.9 MEQ/L (3.5-5.1)
[2019-04-21] MEDS: methylPREDNISolone INJ 125 MG/2 ML VIAL (J2930) IV SCH ×3 (00:23→17:24)
[2019-04-21 04:00] VITALS: BP 110/56
[2019-04-21 05:56] LABS: HEMATOCRIT 28.9 % (42.0-52.0); HEMOGLOBIN 9.7 g/dl (13.5-17.5); MEAN CORPUSCULAR HEMOGLOBIN 33.4 pg (27.0-33.0); MEAN CORPUSCULAR HGB CONC 33.6 g/dl (32.0-36.5); MEAN CORPUSCULAR VOLUME 99.7 fl (80.0-96.0); PLATELET COUNT, AUTOMATED 180 10^3/uL (150-450); WHITE BLOOD COUNT 7.3 10^3/uL (4.0-10.0)
[2019-04-21] MEDS: CIPROFLOXACIN 200 MG in IV 1 EA IV SCH ×2 (06:09→17:24)
[2019-04-21 06:18] LABS: CALCIUM LEVEL 8.7 MG/DL (8.8-10.2); CREATININE FOR GFR 2.12 MG/DL (0.70-1.30); GLOMERULAR FILTRATION RATE 31.8 (>35); POTASSIUM SERUM 3.9 MEQ/L (3.5-5.1)
[2019-04-21 06:30] LABS: IRON (FE) 42 UG/DL (65-175); LDH LACTATE DEHYDROGENASE 177 U/L (87-241); TOTAL IRON BINDING CAPACITY 233 UG/DL (250-450); TOTAL PROTEIN 5.6 GM/DL (6.4-8.2)
[2019-04-21] MEDS: TIOTROPIUM INHALER/CAPSULE (SPIRIVA) INH SCH (07:28)
[2019-04-21 08:00] VITALS: BP 98/50
[2019-04-21 08:08] LABS: TOTAL PROTEIN,RANDOM URINE 210.5 MG/DL (0.0-12.0)
--- NOTE | 2019-04-21 08:12 | REP ---
Portable chest, single AP view with the patient semi upright, 07:55 a.m.: Comparison is 04/20/2019. There is an incomplete inspiratory effort with mild under aeration of the lung bases. Lung baker otherwise clear. Cardiac size is upper normal for portable positioning. The nathan, mediastinum, skeletal structures are unremarkable. Impression: Incomplete inspiratory effort, otherwise negative portable chest. Electronically Signed by Florencio Chun MD 04/21/2019 08:04 A
[2019-04-21] MEDS: ATENOLOL 25 MG TAB PO SCH (09:00)
[2019-04-21] MEDS: amLODIPine 5 MG TAB PO SCH ×2 (09:00→21:00)
[2019-04-21] MEDS: NS 1,000 ML IV SCH ×2 (09:56→17:24)
[2019-04-21] MEDS: TAMSULOSIN 0.4 MG CAP PO SCH (09:56)
[2019-04-21] MEDS: DOCUSATE SODIUM 100 MG CAP PO SCH ×2 (09:56→22:20)
[2019-04-21] MEDS: HEPARIN SOD (PORCINE) 5000 UNITS/ML VIAL SC SCH ×2 (09:56→22:20)
[2019-04-21] MEDS: POTASSIUM CHLORIDE 10 MEQ SR TABLET PO SCH (09:57)
[2019-04-21 11:35] LABS: URINE TOTAL PROTEIN 173.7 MG/DL (0-12)
[2019-04-21 12:00] VITALS: BP 115/91
--- NOTE | 2019-04-21 13:32 | IPN ---
DATE OF SERVICE: 04/21/2019 Patient states that his breathing has improved. Energy level is better. He is awake and alert this morning, conversing appropriately. Denies any chest pain, pressure or tightness. No fever or chills. Still has a cough productive of white sputum. Scant and not copious in amount. No nausea, vomiting or epigastric discomfort. No other issues overnight. PHYSICAL EXAMINATION: Vital signs 97, pulse 67, respiratory rate 18, blood pressure 115/56, 97% on room air. Generally, patient is awake, alert, oriented to himself. He is able to converse appropriately. Speech is fluent. No facial asymmetry. Lungs are clear to auscultation. There is no wheezing or rales. Heart: S1, S2. Regular rate and rhythm. Abdomen is soft, nontender, nondistended. Extremities: No pitting edema. White count 7.3, hemoglobin 9.7, hematocrit 28, platelet count 180. Sodium 137, potassium 3.9, chloride 106, bicarbonate 23, BUN 37, creatinine 2.12, glucose of 195. Iron 42, TIBC 233. Methicillin-resistant staphylococcus aureus (MRSA) screen, respiratory panel, blood and urine cultures are pending. ASSESSMENT AND PLAN: This 83-year-old male with a history of left ventricular (LV) diastolic dysfunction, ejection fraction 65%, chronic obstructive pulmonary disease (COPD) with centrilobular emphysema, hypertension, dyslipidemia, benign prostatic hypertrophy (BPH) and lower extremity cellulitis, mild aortic regurgitation, trivial aortic stenosis, trace mitral regurgitation, mild tricuspid regurgitation, small pericardial effusion, was brought in by family to the emergency room due to increased sleepiness and fever thought to be due to urinary tract infection (UTI) as well as shortness of breath. ACUTE ISSUES: 1. Acute kidney injury. Patient was taking torsemide, harshil inhibitor which have been help temporarily with decreased oral intake. Renal ultrasound was negative for hydronephrosis or kidney stone despite hydration of 1 liter overnight. Patient has had no significant change in his creatinine, therefore will liberally increase hydration and continue to hold patient's harshil inhibitor and torsemide. Monitor clinically if patient develops fluid overload. We have renally dosed all medications, avoid non-steroidal anti-inflammatory drugs (NSAID), strict input and output, and daily weight checks. 2. Chronic obstructive pulmonary disease (COPD) exacerbation. Patient has significantly improved with IV Solu-Medrol. Also on IV ciprofloxacin, Xopenex to prevent tachyarrhythmia. Respiratory panel is pending. Continue on Spiriva. 3. Abnormal urinalysis currently on IV Cipro. He had foul smelling urine but urinalysis was not convincing. We will await culture results and discontinue IV antibiotics if negative. Telemetry monitoring for now to monitor for QT prolongation. 4. History of congestive heart failure (CHF) diastolic dysfunction, ejection fraction 65-70% currently euvolemic at this time. Patient is on fluid hydration. Will monitor for fluid overload. 5. Hypertension on atenolol. Harshil inhibitor has been held due to acute kidney injury. 6. Acute encephalopathy due to uremia, chronic obstructive pulmonary disease (COPD) exacerbation, currently stable. 7. Anemia, previous hemoglobin of 12-13, currently is 9-10. Iron study shows iron deficiency, awaiting stool culture. No acute indication for red blood cell transfusion. 8. Deep venous thrombosis (DVT) prophylaxis with subcutaneous heparin. MTDD
[2019-04-21 16:00] VITALS: BP 126/58
[2019-04-21 16:10] VITALS: BP 108/51
[2019-04-21 18:42] LABS: CALCIUM LEVEL 8.6 MG/DL (8.8-10.2); CREATININE FOR GFR 2.22 MG/DL (0.70-1.30); GLOMERULAR FILTRATION RATE 30.2 (>35); POTASSIUM SERUM 3.9 MEQ/L (3.5-5.1)
[2019-04-21 22:00] VITALS: BP 138/68
[2019-04-21] MEDS: ROSUVASTATIN 10 MG TAB (CRESTOR) PO SCH (22:20)
[2019-04-21] MEDS: NICOTINE 21MG/24HR 1 EA TRANSDERMAL TD SCH (22:21)
[2019-04-22] MEDS: LEVALBUTEROL 1.25 MG/0.5 ML CONCENTRATE NEB NEB SCH ×7 (00:46→23:09)
[2019-04-22 01:02] LABS: CALCIUM LEVEL 7.7 MG/DL (8.8-10.2); CREATININE FOR GFR 2.01 MG/DL (0.70-1.30); GLOMERULAR FILTRATION RATE 33.9 (>35); POTASSIUM SERUM 4.2 MEQ/L (3.5-5.1)
[2019-04-22 06:00] VITALS: BP 131/64
[2019-04-22] MEDS: methylPREDNISolone INJ 125 MG/2 ML VIAL (J2930) IV SCH ×3 (06:01→18:37)
[2019-04-22] MEDS: CIPROFLOXACIN 200 MG in IV 1 EA IV SCH ×2 (06:01→18:37)
[2019-04-22] MEDS: TIOTROPIUM INHALER/CAPSULE (SPIRIVA) INH SCH (07:07)
[2019-04-22] MEDS ORDERED: NS 1,000 ML IV SCH (07:45)
[2019-04-22] MEDS ORDERED: methylPREDNISolone INJ 125 MG/2 ML VIAL (J2930) IV ONE (07:45)
[2019-04-22 07:56] LABS: CALCIUM LEVEL 7.9 MG/DL (8.8-10.2); CREATININE FOR GFR 1.83 MG/DL (0.70-1.30); GLOMERULAR FILTRATION RATE 37.7 (>35); POTASSIUM SERUM 4.1 MEQ/L (3.5-5.1)
[2019-04-22] MEDS ORDERED: IPRATROPIUM 0.5MG/ALBUTEROL 2.5MG INH SOL UD 3ML (DUONEB)(J7620) NEB ONE (08:00)
--- NOTE | 2019-04-22 08:00 | REP ---
Portable chest, 07:35 a.m., single AP view with the patient semi upright: Comparison is 04/21/2019. There is an incomplete inspiratory effort with under aeration of the lung bases. This is unchanged. The lung baker otherwise clear and unchanged. Cardiac size is upper normal, unchanged. The nathan, mediastinum, skeletal structures are unremarkable and unchanged. Impression: There is no interval change. Electronically Signed by Florencio Chun MD 04/22/2019 07:51 A
--- NOTE | 2019-04-22 08:02 | ECGEPIP ---
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
[2019-04-22] MEDS: ATENOLOL 25 MG TAB PO SCH (09:00)
[2019-04-22] MEDS: amLODIPine 5 MG TAB PO SCH ×2 (09:00→21:06)
[2019-04-22] MEDS ORDERED: FLUBLOK(EGG FREE)(QUAD)INFLUENZA VACC 0.5ML SYRINGE (90682)18YRS&OLDER IM ONE (09:00)
[2019-04-22] MEDS: TAMSULOSIN 0.4 MG CAP PO SCH (09:14)
[2019-04-22] MEDS: HEPARIN SOD (PORCINE) 5000 UNITS/ML VIAL SC SCH ×2 (09:14→21:07)
[2019-04-22] MEDS: DOCUSATE SODIUM 100 MG CAP PO SCH ×2 (09:14→21:06)
[2019-04-22] MEDS: POTASSIUM CHLORIDE 10 MEQ SR TABLET PO SCH (09:14)
--- NOTE | 2019-04-22 10:28 | IPN ---
DATE: 04/22/2019 SUBJECTIVE: Patient: "Want to get out of here." However, he is audibly wheezing at the bedside with decreasing doses of Solu-Medrol and did not work with physical therapy yesterday due to extreme fatigue. Urine output overnight was documented as 900, input was not documented. Current weight is 84.9 kg. Patient complains of dyspnea on exertion. No chest pain, pressure or tightness. He does have a scant productive cough of white sputum. No fever or chills overnight. Urine culture grew out Escherichia (E) coli, currently on intravenous (IV) ciprofloxacin, renally dosed. Despite 3 liters of intravenous fluids, the patient's output was only 900 mL and creatinine remains unchanged at glomerular filtration rate (GFR) of 33.9. PHYSICAL EXAM: Vital signs: Temperature 97.3, pulse 67, respiratory rate 18, blood pressure 131/64, 96% on room air. Generally, awake, alert, oriented to person, answering questions appropriately. No use of respiratory accessory muscles. There is no tripod positioning or pursed lips. No conversational dyspnea, able to complete his sentences. Speech is fluent. Face is symmetric. Patient has diminished breath sounds, prolonged expirations with bilateral expiratory wheezing. Air entry is diminished. Heart: S1, S2, sinus rhythm. No murmurs, rubs, or gallops. Abdomen is obese, soft, nontender, nondistended. Positive bowel sounds. No rebound, guarding. No hepatosplenomegaly. No abdominal bruits. No costovertebral angle tenderness. Mason catheter in place with yellow-colored urine. Extremities: Trace edema bilaterally. Laboratory data is still pending. Urine culture: Escherichia coli (E-coli), pansensitive. ALLERGIES: Patient has an allergy to CEPHALEXIN causing severe rash. ASSESSMENT AND PLAN: This is an 83-year-old male who was brought into the emergency room with complaints of altered mental status due to presumed urinary tract infection (UTI), shortness of breath, admitted for chronic obstructive pulmonary disease (COPD) exacerbation, acute kidney injury, baseline renal function is stage I, currently is stage III and was taking torsemide as an outpatient. He has a known history of left ventricular diastolic dysfunction, ejection fraction (EF) of 65%, COPD with centrilobular emphysema, hypertension, dyslipidemia, BPH, and prior lower extremity cellulitis, trivial aortic stenosis, trace mitral regurgitation (MR), small pericardial effusion, mild tricuspid regurgitation (TR). ACUTE ISSUES: 1. Acute kidney injury. Baseline is stage I chronic kidney disease, currently a stage III. He was taking torsemide and angiotensin-converting enzyme (ANA) inhibitor, which have been temporarily held, as well as having decreased oral intake due to confusion. Renal ultrasound was negative for hydronephrosis. No kidney stone. He has been hydrated three liters since admission with no significant change in his stage III renal failure that is present. Phlebotomist Medical Lab Assistant has been consulted for help in management. We are avoiding fluid overload by monitoring patient's respiratory status, chest x-ray was negative, and appears clear. We are renally dosing all medications, avoiding nonsteroidal anti-inflammatory drugs (NSAIDs). He was placed on strict intake and output, Mason catheter is extended for another 48 hours for strict intake and output monitoring and for possible obstruction by the enlarged prostate. 2. Chronic obstructive pulmonary disease exacerbation. Worsened with tapering Solu-Medrol; therefore, the patient will be given 125 mg IV this morning and continued on every 6 hours at 80 mg. He has been given DuoNeb time one but is currently on Xopenex every 4 hours and every 1 hour due to risk of tachycardia. 3. Deconditioning. Patient refused to work with physical therapy due to fatigue and weakness yesterday. Will need physical therapy (PT) clearance prior to discharge home. 4. Congestive heart failure with preserved ejection fraction (EF) of 65% of 70%, diastolic dysfunction, currently euvolemic with no signs of fluid overload. Chest x-ray has been ordered this morning and is unavailable. 5. Hypertension. On atenolol. ANA inhibitor has been discontinued as well as torsemide due to acute kidney injury. 6. Acute encephalopathy, resolved. Secondary to COPD exacerbation, UTI and uremia. Patient is much more responsive and anxious to go home. 7. Chronic anemia. Most likely due to renal failure and iron deficiency. No acute indication for red blood cell (RBC) transfusion. 8. Deep vein thrombosis (DVT) prophylaxis with subcu heparin. DISPOSITION: Await improvement of the renal function 2-3 days and PT clearance. MTDD
[2019-04-22] MEDS ORDERED: FUROSEMIDE 40 MG/4 ML VIAL (J1940) IV ONE (11:45)
[2019-04-22 13:29] LABS: CALCIUM LEVEL 8.1 MG/DL (8.8-10.2); CREATININE FOR GFR 1.86 MG/DL (0.70-1.30); POTASSIUM SERUM 3.8 MEQ/L (3.5-5.1)
[2019-04-22 13:36] VITALS: BP 132/53
[2019-04-22 18:53] LABS: CALCIUM LEVEL 8.2 MG/DL (8.8-10.2); CREATININE FOR GFR 1.99 MG/DL (0.70-1.30); GLOMERULAR FILTRATION RATE 34.3 (>35)
[2019-04-22] MEDS: ROSUVASTATIN 10 MG TAB (CRESTOR) PO SCH (21:06)
[2019-04-22] MEDS: NICOTINE 21MG/24HR 1 EA TRANSDERMAL TD SCH (21:06)
[2019-04-22 22:00] VITALS: BP 145/66
[2019-04-23] MEDS: methylPREDNISolone INJ 125 MG/2 ML VIAL (J2930) IV SCH ×2 (00:11→06:16)
[2019-04-23 00:12] LABS: CALCIUM LEVEL 7.9 MG/DL (8.8-10.2); CREATININE FOR GFR 1.87 MG/DL (0.70-1.30); GLOMERULAR FILTRATION RATE 36.8 (>35); POTASSIUM SERUM 3.9 MEQ/L (3.5-5.1)
[2019-04-23] MEDS: LEVALBUTEROL 1.25 MG/0.5 ML CONCENTRATE NEB NEB SCH ×5 (03:45→23:20)
[2019-04-23 06:00] VITALS: BP 140/62
[2019-04-23] MEDS: CIPROFLOXACIN 200 MG in IV 1 EA IV SCH (06:16)
[2019-04-23 06:51] LABS: CALCIUM LEVEL 8.3 MG/DL (8.8-10.2); CREATININE FOR GFR 1.76 MG/DL (0.70-1.30); GLOMERULAR FILTRATION RATE 39.5 (>35); POTASSIUM SERUM 3.8 MEQ/L (3.5-5.1)
[2019-04-23] MEDS: TIOTROPIUM INHALER/CAPSULE (SPIRIVA) INH SCH (08:00)
[2019-04-23] MEDS: TAMSULOSIN 0.4 MG CAP PO SCH (08:58)
[2019-04-23] MEDS: POTASSIUM CHLORIDE 10 MEQ SR TABLET PO SCH (08:59)
[2019-04-23] MEDS: DOCUSATE SODIUM 100 MG CAP PO SCH ×2 (08:59→21:32)
[2019-04-23] MEDS: ATENOLOL 25 MG TAB PO SCH (09:00)
[2019-04-23] MEDS: HEPARIN SOD (PORCINE) 5000 UNITS/ML VIAL SC SCH ×2 (09:00→21:34)
[2019-04-23] MEDS: amLODIPine 5 MG TAB PO SCH ×2 (09:00→21:00)
--- NOTE | 2019-04-23 10:05 | CR ---
DATE OF CONSULTATION: 04/22/[address] JAMAAL MCKEON REASON FOR CONSULTATION: Acute renal failure superimposed on chronic kidney disease. HISTORY OF PRESENT ILLNESS: Mr. Crane is an 83-year-old gentleman who was admitted to [facility] a couple of days ago due to increased weakness and decreased energy level. He was noticed to have acute renal failure with worsening kidney function. The patient was hydrated with IV fluid due to possibility of dehydration; however, his kidney function did not improve. He is also being treated for a urinary tract infection. His renal ultrasound was unremarkable. His diuretic and ANA inhibitor has been on hold. A nephrology consultation was requested today and the patient is seen this morning. PAST MEDICAL HISTORY (Significant for): 1. History of diastolic congestive heart failure with ejection fraction 65-70%. 2. History of aortic valve disease with mild aortic regurgitation and trivial aortic stenosis. 3. History of chronic obstructive pulmonary disease (COPD). 4. History of hypertension. 5. History of benign prostatic hypertrophy (BPH). 6. History of dyslipidemia. 7. History of chronic kidney disease. PAST SURGICAL HISTORY: Significant for left hip replacement in 2009. MEDICATIONS: His home medications include ProAir inhaler 2 puffs every 4 hours as needed for dyspnea, vitamin D 50,000 units every 2 weeks, Bactrim 1 tablet twice a day which she has not started as yet, torsemide 10 mg daily, benazepril 10 mg daily which is currently on hold, Tylenol PM at bedtime as needed for insomnia, atenolol 25 mg daily, potassium chloride 20 mEq daily, Crestor or 40 mg at bedtime and tamsulosin 0.4 mg daily. ALLERGIES: - KEFLEX PERSONAL AND SOCIAL HISTORY: The patient lives with his significant other. He does have about a 70 pack year history of smoking. Denies any recreational drug use. FAMILY HISTORY: Mother had Parkinson's disease and father had lung cancer. No family history for end-stage renal disease. REVIEW OF SYSTEMS: The patient denies any fever or chills. Ears, nose and throat are unremarkable. Cardiovascular system is significant for diastolic congestive heart failure and chronic lower extremity edema. His diuretic is currently on hold. Respiratory system is negative for cough or hemoptysis. He does have history of COPD with active smoking. Gastrointestinal (GI) system is negative for nausea, vomiting or diarrhea. Genitourinary () system is significant for history of BPH. The patient denies any dysuria or hematuria. He currently has a Mason catheter which is draining clear urine. Musculoskeletal system is significant for chronic degenerative arthritis and lower extremity edema. The patient denies any nonsteroidal anti-inflammatory drug (NSAID) use. Hematological system negative for chronic anticoagulation. Psychosocial system negative for depression or anxiety. Neurological system is negative for seizures or stroke. PHYSICAL EXAMINATION: Temperature 97.3 degrees Fahrenheit, heart rate 68 per minute and respiratory rate 18 per minute. Blood pressure 130/64 mmHg and oxygen saturation 96% on room air. Head is atraumatic. Neck is supple and jugular venous distention (JVD) is at least 9-10 cm above sternal angle. The patient has no oral thrush or ulcers. Heart sounds are regular and without a pericardial friction rub. Lungs with slightly diminished breath sounds at bases. Abdomen: Obese, soft and nontender and bowel sounds are normal. Extremities: Without any cyanosis or clubbing. Neurologically, he is awake, alert and without a focal deficit. LABORATORY DATA: His initial CBC showed a hemoglobin of 10.5 and hematocrit 31.3 on April 20. Yesterday, hemoglobin was 9.7 and hematocrit 28.9. Blood gas on April 20 showed a pH of 7.34, pCO2 44.7, pO2 43.6 and bicarb 22.7 on a venous blood gas. His admission chemistry showed a BUN of 36 and creatinine 1.94. Later on, his creatinine went up to 2.12 on April 21 and 2.22 later in the afternoon on April 21. This morning, creatinine was 2.0 and a repeat creatinine is now 1.83. Sodium is 138, potassium 4.1, CO2 21, B, BUN 41, glucose 159 and calcium 7.9. PROBLEMS: 1. Acute renal failure superimposed on chronic kidney disease. Etiology is uncertain. Renal ultrasound was unremarkable with 10 cm kidneys without any hydronephrosis. Urinalysis did show 3+ protein and 3+ leukocyte esterase, but no blood. His spot urine protein was 173 mg/dl. I do not feel that the patient has acute glomerulonephritis and he does not have any hematuria and proteinuria is probably multifactorial including urinary tract infection. At this point clinically he is volume overloaded and his IV fluid is being stopped. Renal function will be rechecked again tomorrow morning. 2. Acute on chronic diastolic congestive heart failure. His diuretic is on hold due to acute renal failure and ANA inhibitor is appropriately also on hold. His IV fluid is being stopped and he will be given one dose of Lasix 40 mg intravenously. His volume status will be rechecked again tomorrow. 3. Anemia. He does have chronic anemia which is probably without any significant change. Slight decrease in hemoglobin is related to hemodilution. No urgent intervention is needed at this point. 4. Urinary tract infection. The patient has history of a condom catheter use chronically. Now he has a Mason catheter in place. He is being treated with Cipro and urine culture did show E-coli which is pansensitive. Thank you for involving me in the care of Mr. Crane. I will follow him along with you.
--- NOTE | 2019-04-23 11:09 | IPNPDOC ---
Date Seen The patient was seen on 04/23/19. Progress Note SUBJECTIVE: Patient is an 83 YO M with CKD and dCHF who presented with worsening kidney function and UTI. Mr. Crane was seen and examined at the bedside this morning. He has no complaints. He displays some cognitive dysfunction with memory loss but this may be somewhat baseline. He is having no issues urinating, no fevers, no SOB and is eating/drinking well. OBJECTIVE PHYSICAL EXAMINATION: VITAL SIGNS: Please see below. GENERAL: sitting up next to bed, appears stated age, talkative, calm, cooperative HEENT: normocephalic, atraumatic, EOMI, PERRLA, neck is supple with no lymphadenopathy or thyromegaly CARDIOVASCULAR: JVD at 9-10cm above sternal angle, RRR, no murmurs/rubs/gallops RESPIRATORY: some diminished breath sounds at bases bilaterally, no adventitious breath sounds appreciated ABDOMINAL: Soft, nontender to palpation, +BS, no organomegaly or masses EXTREMITIES: no clubbing/cyanosis/edema NEUROLOGICAL: no obvious focal deficits appreciated PSYCHOLOGICAL: AAOx3, normal mood/affect LABORATORY DATA, IMAGING STUDIES, MICROBIOLOGY: Please see below. DVT prophylaxis ordered?: Heparin SQ ASSESSMENT AND PLAN: Patient is an 83 YO M with CKD and dCHF who presented with acute renal failure and UTI on antibiotics. PROBLEMS: 1. Acute on chronic renal failure:Patient presented with an unremarkable renal US but urine was found to have 3+ protein and 3+ leukocyte esterase, so etiology of ARF is most likely multifactorial. He did display signs of volume overload, which appears to be resolving. -Cr 1.76 today from 1.87 yesterday -S/p IVF. These have been stopped due to hypervolemic status 2. Acute on chronic dCHF: -Lasix 40 mg IV given with ~3.5L output yesterday -Volume status not quite euvolemic but improving 3. Chronic anemia: -Hgb stable at 9.7 today with elevated MCV (99.7), therefore etiology of anemia most likely multifactorial 4. UTI in setting of chronic condom catheter use: -Mason in place, continue Flomax -Urine culture positive for E. coli -Continue Cipro DISPOSITION: pending improvement in volume status VS, I&O, 24H, Fishbone Vital Signs/I&O Vital Signs Date Time Temp Pulse Resp B/P (MAP) Pulse Ox O2 Delivery O2 Flow Rate FiO2 04/23/19 09:00 77 140/62 04/23/19 06:00 97.5 18 90 04/23/19 03:20 Room Air I&O- Last 24 Hours up to 6 AM 04/23/19 06:00 Intake Total 300 ml Output Total 3625 ml Balance -3325 ml Laboratory Data 24H LABS Laboratory Tests 2 04/22/19 12:44: Anion Gap 9, Glomerular Filtration Rate 37.0, Blood Urea Nitrogen 38H, Creatinine 1.86H, Sodium Level 138, Potassium Level 3.8, Chloride Level 107, Carbon Dioxide Level 22, Calcium Level 8.1L 04/22/19 18:11: Anion Gap 8, Glomerular Filtration Rate 34.3L, Blood Urea Nitrogen 35H, Cre atinine 1.99H, Sodium Level 138, Potassium Level 4.0, Chloride Level 107, Carbon Dioxide Level 23, Calcium Level 8.2L 04/22/19 23:45: Anion Gap 8, Glomerular Filtration Rate 36.8, Blood Urea Nitrogen 37H, Creatinine 1.87H, Sodium Level 136, Potassium Level 3.9, Chloride Level 105, Carbon Dioxide Level 23, Calcium Level 7.9L 04/23/19 05:53: Anion Gap 8, Glomerular Filtration Rate 39.5, Blood Urea Nitrogen 34H, Creatinine 1.76H, Sodium Level 139, Potassium Level 3.8, Chloride Level 107, Carbon Dioxide Level 24, Calcium Level 8.3L CBC/BMP Laboratory Tests 04/22/19 12:44 Calcium Level 8.1 L 04/22/19 18:11 Calcium Level 8.2 L 04/22/19 23:45 Calcium Level 7.9 L 04/23/19 05:53 Calcium Level 8.3 L Microbiology Microbiology 04/21/19 MRSA Screen - Final, Complete 04/21/19 Respiratory Virus Panel (PCR) ([facility]) - Final, Complete 04/20/19 Blood Culture - Preliminary, Resulted No Growth after 48 hours. All Specime... 04/20/19 Urine Culture - Final, Complete Escherichia Coli Enterococcus Faecalis Aerococcus Urinae 04/20/19 Blood Culture - Preliminary, Resulted No Growth after 48 hours. All Specime... GME ATTESTATION GME ATTESTATION My faculty preceptor for this patient encounter was physically present during the encounter and was fully available. All aspects of the patient interview, examination, medical decision making process, and medical care plan development were reviewed and approved by the faculty preceptor. The faculty preceptor is aware and concurs with the plan as stated in the body of this note and will attest to such by his/her cosignature. MONICA OSMAN MD Apr 23, 2019 11:09
[2019-04-23 12:43] LABS: CALCIUM LEVEL 8.4 MG/DL (8.8-10.2); CREATININE FOR GFR 1.76 MG/DL (0.70-1.30); GLOMERULAR FILTRATION RATE 39.5 (>35)
--- NOTE | 2019-04-23 13:00 | IPN ---
DATE OF VISIT: 04/23/2019 Mr. Crane is seen this morning on his bedside. He is sitting in the chair and is fully alert today. Yesterday, he could not remember my visit. He is feeling much better now and denies any nausea, vomiting, dyspnea or chest pain. He reports that he was not aware of him being in the hospital and when he woke up here he was surprised. On physical examination, temperature 97.5 degrees Fahrenheit, heart rate 77 per minute and respiratory rate 18 per minute. Blood pressure 140/62 mmHg and oxygen saturation 90% on room air. Head is atraumatic. Neck is supple and jugular venous distention (JVD) is not visible sitting upright. Lungs sound clear to auscultation and heart sounds are regular. Abdomen: Soft and nontender and bowel sounds are normal. Extremities: Without any cyanosis or clubbing. Neurologically, he is awake, alert and oriented x3. Today's labs show sodium level 139, potassium 3.8, CO2 24, BUN 34 and creatinine 1.76. Glucose 158 and calcium 8.3. PROBLEMS: 1. Acute renal failure superimposed on chronic kidney disease. Kidney function has slightly improved since yesterday. His electrolytes are stable and IV fluid has already been stopped since yesterday. 2. Congestive heart failure. The patient was given one dose of intravenous Lasix yesterday with good urine output and a negative fluid balance of about 3 liters. We will watch him without any further diuretic today. 3. Urinary tract infection (UTI). He is currently afebrile and remains on antibiotic therapy. He is receiving ciprofloxacin 200 mg every 12 hours. His urine culture grew multiple organisms which are pansensitive so far. 4. Anemia. I would suggest to repeat his CBC as he did have anemia on admission.
--- NOTE | 2019-04-23 13:48 | IPN ---
DATE: 04/23/2019 The patient says that his shortness of breath is significantly improvement. He diuresed 3.5 liters of fluid out after one dose of Lasix given by Dr. Lange. Denies any paroxysmal nocturnal dyspnea (PND), orthopnea, dyspnea on exertion, wheezing has improved. No fever or chills. Has occasional cough productive of white sputum, tolerating his diet well. No dizziness or lightheadedness this morning when he ambulated. The patient says he will be going home today. The patient still has a Mason catheter. Creatinine is unchanged 1.76 from the past two days. Still stage III chronic kidney disease with a baseline creatinine which is stage I. PHYSICAL EXAMINATION: Temperature 97.5, pulse 77, respiratory rate 18, blood pressure 140/62, 90% on room air. Generally, patient is awake, alert and oriented to himself. He is much more oriented and interactive. He is following commands, but quite irritable. No jugular venous distention (JVD). No thyromegaly. No cervical lymphadenopathy. Moist mucus membranes. Lungs are diminished with occasional coarse breath sounds, but clear. Heart S1, S2 sinus rhythm. Abdomen is soft, nontender, nondistended. Positive bowel sounds. No CVA tenderness. Extremities no cyanosis, clubbing. Skin warm and dry, well perfused, pink in color. LABORATORY DATA: 04/21 CBC has been reviewed. 04/23 creatinine is 1.76, unchanged from yesterday. Glucose of 191. Microbiology: Urine culture with E. Faecalis, E. Coli and Aurococcus which is cui sensitive. ASSESSMENT/PLAN: This is an 83-year-old male with a history of stage I chronic kidney disease, dyslipidemia, condom catheter at baseline, benign prostatic hypertrophy (BPH), hypertension, congestive heart failure (CHF), rhabdomyolysis, Lipitor induced myositis, who presented to the emergency room with altered mental status, fatigue, weakness and foul smelling urine. The patient was initially started on ciprofloxacin for presumed urinary tract infection and as acute on chronic kidney disease, which did not respond to Mason catheter placement and intravenous fluids. Chest CT showed centrilobular emphysema with an ascending thoracic aortic fusiform dilatation without saccular component and a left adrenal mass. The patient's acute issues are as follows: 1. Acute encephalopathy secondary to urinary tract infection and renal failure. The patient has improved significantly after antibiotics were started. Renal dysfunction is still not at baseline. Nephrology has been consulted. 2. Acute kidney injury. The patient is usually at stage I, currently has stage III renal failure with no metabolic acidosis, fluid overload, hyperkalemia, with improvement in mental status. Dr. Lange has been consulted for help and management. Mason catheter has been placed. Evaluation of the kidney's showed no hydronephrosis or kidney stone. 3. COPD exacerbation with tapering doses of Solu-Medrol. Had been on Cipro but urine culture was sensitive to Levaquin, which has been renally dosed. 4. Urinary tract infection with fever of 100.3. Urine culture has been reviewed and the patient will be switched to Levaquin, renal dosing. 5. Congestive heart failure (CHF), diastolic dysfunction, ejection fraction of 65-70%. Diuresed 3.5 liters. Appears to be decompensated with significant improvement overnight when all function is unchanged. Strict intake and output, daily weights, fluid restriction. Defer to Dr. Lange for further diuresis. 6. Hypertension, on atenolol. ANA inhibitor has been held due to acute kidney injury. 7. Acute metabolic encephalopathy secondary to uremia. 8. COPD exacerbation and urinary tract infection. Venous gases appear to be within normal, currently being treated for a UTI and renal failure with nephrology consultation. 9. Anemia. The patient's hemoglobin was 12 in October 2018, currently at 10. Awaiting GI workup with iron studies and stool for blood. No acute indication for RBC transfusion. 10. Peripheral blood smear was sent, which showed essentially no macrocytic anemia. 11. Active tobacco abuse. Still smoking cigarettes. Tobacco cessation counseling has been provided and nicotine patch has been given along with nicotine gum every 2 hours. MTDD
[2019-04-23 18:34] LABS: CALCIUM LEVEL 8.1 MG/DL (8.8-10.2); CREATININE FOR GFR 1.71 MG/DL (0.70-1.30); GLOMERULAR FILTRATION RATE 40.8 (>35); POTASSIUM SERUM 4.2 MEQ/L (3.5-5.1)
[2019-04-23 19:04] LABS: FOLATE 4.6 NG/ML (>5.4)
[2019-04-23 20:48] VITALS: BP 134/63
[2019-04-23] MEDS ORDERED: methylPREDNISolone INJ 125 MG/2 ML VIAL (J2930) IV SCH (21:00)
[2019-04-23] MEDS: ROSUVASTATIN 10 MG TAB (CRESTOR) PO SCH (21:32)
[2019-04-23] MEDS: CYANOCOBALAMIN 500 MCG TAB PO SCH (21:32)
[2019-04-23] MEDS: NICOTINE 21MG/24HR 1 EA TRANSDERMAL TD SCH (21:34)
[2019-04-23] MEDS: IRON POLYSAC (NIFEREX) 150 MG CAP PO SCH (21:34)
[2019-04-24] MEDS: LEVALBUTEROL 1.25 MG/0.5 ML CONCENTRATE NEB NEB SCH ×5 (03:14→19:27)
[2019-04-24] MEDS ORDERED: LevoFLOXacin 750 MG TABLET PO SCH (06:00)
[2019-04-24 06:01] LABS: HEMATOCRIT 27.7 % (42.0-52.0); HEMOGLOBIN 9.2 g/dl (13.5-17.5); MEAN CORPUSCULAR HEMOGLOBIN 32.9 pg (27.0-33.0); MEAN CORPUSCULAR HGB CONC 33.2 g/dl (32.0-36.5); MEAN CORPUSCULAR VOLUME 98.9 fl (80.0-96.0); PLATELET COUNT, AUTOMATED 234 10^3/uL (150-450); WHITE BLOOD COUNT 13.9 10^3/uL (4.0-10.0)
[2019-04-24 06:24] LABS: CALCIUM LEVEL 8.1 MG/DL (8.8-10.2); CREATININE FOR GFR 1.6 MG/DL (0.70-1.30); GLOMERULAR FILTRATION RATE 44.1 (>35); POTASSIUM SERUM 4.5 MEQ/L (3.5-5.1)
[2019-04-24] MEDS: TIOTROPIUM INHALER/CAPSULE (SPIRIVA) INH SCH (07:48)
[2019-04-24] MEDS: amLODIPine 5 MG TAB PO SCH ×3 (09:00→21:00)
[2019-04-24] MEDS: ATENOLOL 25 MG TAB PO SCH (09:00)
--- NOTE | 2019-04-24 10:06 | IPN ---
DATE: 04/24/2019 The patient's shortness of breath has improved. His wheezing is better. Sleeping at the bedside. No chest pain, pressure or tightness. Urinating well via the Bradley catheter, output 2 days ago was 3.4 liters, output yesterday was 2 liters. Current weight is 84.9 kg. Overnight he urinated 875 mL out. Denies bright red blood per rectum, melena or black tarry stools. He had been on Solu-Medrol, steroid induced leukocytosis, white count is 13.9. PHYSICAL EXAMINATION: Temperature 98.3, pulse 74, respiratory rate 16, blood pressure 134/63, 96% on room air. GENERAL: Awake, alert and oriented to person. Answering questions appropriately. No use of accessory respiratory muscles. No cyanosis or clubbing. LUNGS: Diminished with coarse rhonchi. HEART: S1, S2. Sinus rhythm. ABDOMEN: Soft, nontender, nondistended. EXTREMITIES: Chronic edema, decreased. Chronic venous stasis changes. LABORATORY DATA: White count 13.9, hemoglobin 9.2, hematocrit 27.7, platelet count 234. Sodium 139, potassium 4.5, chloride 106, bicarbonate 27, BUN 32, creatinine 1.6, glucose of 136. Stool for blood not available. Microbiology: Urine culture with Escherichia (E) coli, Enterococcus sensitive to Levaquin. ASSESSMENT/PLAN: This is an 83-year-old male with a history of stage I chronic kidney disease, condom catheter at baseline, benign prostatic hypertrophy (BPH), congestive heart failure (CHF), hypertension, rhabdomyolysis, Lipitor induced myositis, who was admitted due to altered mental status with fatigue, weakness, foul smelling urine. IMPRESSION: 1. Acute encephalopathy secondary to urinary tract infection and uremia. 2. Chronic obstructive pulmonary disease (COPD) exacerbation, improved after the patient has been treated with Levaquin. 3. Urinary tract infection (UTI) with Enterococcus and Escherichia (E) coli , currently on Levaquin, renally dosed. 4. Acute kidney injury. The patient is usually at stage I, currently has stage III renal failure. Diuresed by Dr. Lange 2 days ago with 3.5 liters out, currently stable. Per Dr. Lange, may resume on home dose of diuretic. dc bradley catheter. trial of voiding. 5. Congestive heart failure (CHF), diastolic dysfunction, ejection fraction of 65-70%. Diuresed 3.5 liters [address] Lange, one dose of Lasix 40 mg IV. The patient's creatinine is improving to 1.6. Per Dr. Lange, may resume the patient on his home dose of diuretic. Strict input and output, daily weights, and fluid restriction. 6. Hypertension, on atenolol. ANA inhibitor has been held due to acute kidney injury. 7. Acute metabolic encephalopathy secondary to uremia, urinary tract infection (UTI), COPD exacerbation, stable. 8. COPD exacerbation, improved. Discontinued IV Solu-Medrol and placed on prednisone taper. if stable overnight, may discharge in am. 9. Anemia. Previous hemoglobin was 12. No stool for blood was obtained. Iron deficiency and anemia of chronic disease. Check B12, folate. Peripheral smear showed macrocytic anemia. No acute indication for RBC transfusion. 10. Active tobacco abuse. Still smoking cigarettes. Cessation counseling has been provided and nicotine patch and gum as needed. disposition: ct home 04/25/19 if stable overnight on oral prednisone. if pt develops increased respiratory distress , may need to restart iv solumedrol. MTDD
[2019-04-24] MEDS: HEPARIN SOD (PORCINE) 5000 UNITS/ML VIAL SC SCH ×2 (10:10→21:02)
[2019-04-24] MEDS: IRON POLYSAC (NIFEREX) 150 MG CAP PO SCH ×2 (10:11→21:02)
[2019-04-24] MEDS: ASCORBIC ACID 500 MG TAB PO SCH ×2 (10:11→18:00)
[2019-04-24] MEDS: DOCUSATE SODIUM 100 MG CAP PO SCH ×2 (10:11→21:05)
[2019-04-24] MEDS: predniSONE 20 MG TAB PO SCH (10:11)
[2019-04-24] MEDS: FOLIC ACID 1 MG TAB PO SCH (10:11)
[2019-04-24] MEDS: POTASSIUM CHLORIDE 10 MEQ SR TABLET PO SCH (10:12)
[2019-04-24] MEDS: TAMSULOSIN 0.4 MG CAP PO SCH (10:12)
[2019-04-24] MEDS: CYANOCOBALAMIN 500 MCG TAB PO SCH ×2 (10:12→21:05)
[2019-04-24] MEDS ORDERED: PRED10TA2 PO (10:43)
[2019-04-24] MEDS ORDERED: AMLO5TAB6 PO (10:43)
[2019-04-24] MEDS ORDERED: LEVA750T7 PO (10:43)
[2019-04-24] MEDS ORDERED: NICO21PAT TD (10:43)
--- NOTE | 2019-04-24 11:05 | IPNPDOC ---
Date Seen The patient was seen on 04/24/19. Progress Note NEPHROLOGY SERVICE PROGRESS NOTE SUBJECTIVE: Patient is an 83 YO M with CKD and dCHF who presented with worsening kidney function and UTI. Mr. Crane was seen and examined at the bedside this morning. He still has his urinary catheter in. He is making good urine and has no complaints today. He has been afebrile with normal vitals. He has no other complaints and is ready for discharge today OBJECTIVE PHYSICAL EXAMINATION: VITAL SIGNS: Please see below. GENERAL: sitting up next to bed, appears stated age, talkative, calm, cooperative HEENT: normocephalic, atraumatic, EOMI, PERRLA, neck is supple with no lymphadenopathy or thyromegaly CARDIOVASCULAR: JVD at 9-10cm above sternal angle, RRR, no murmurs/rubs/gallops RESPIRATORY: some diminished breath sounds at bases bilaterally, no adventitious breath sounds appreciated ABDOMINAL: Soft, nontender to palpation, +BS, no organomegaly or masses EXTREMITIES: no clubbing/cyanosis/edema NEUROLOGICAL: no obvious focal deficits appreciated PSYCHOLOGICAL: AAOx3, normal mood/affect LABORATORY DATA, IMAGING STUDIES, MICROBIOLOGY: Please see below. DVT prophylaxis ordered?: Heparin SQ ASSESSMENT AND PLAN: Patient is an 83 YO M with CKD and dCHF who presented with acute renal failure and UTI on antibiotics. PROBLEMS: 1. Acute on chronic renal failure: Patient presented with an unremarkable renal US but urine was found to have 3+ protein and 3+ leukocyte esterase, so etiology of ARF is most likely multifactorial. He did display signs of volume overload, which appears to be resolving. -Cr down to 1.6 today -S/p IVF. These have been stopped due to hypervolemic status -Electrolytes are stable today 2. Acute on chronic dCHF: -Lasix 40 mg IV given. He is safe to go home on home dose of Torsemide 10mg daily. -Volume status not quite euvolemic but improving 3. Chronic anemia: -Hgb stable at 9.2 today. 4. UTI in setting of chronic condom catheter use: -May dc bradley today -Urine culture positive for E. coli -Continue Cipro 200mg Q12H DISPOSITION: The patient is optimized from a Nephrology standpoint to go home. Renal function has improved and volume status is acceptable. He is to follow up with his PCP and Nephrology after discharge. VS, I&O, 24H, Fishbone Vital Signs/I&O Vital Signs Date Time Temp Pulse Resp B/P (MAP) Pulse Ox O2 Delivery O2 Flow Rate FiO2 04/24/19 09:00 134/72 04/23/19 21:00 74 04/23/19 20:48 98.3 16 96 04/23/19 03:20 Room Air I&O- Last 24 Hours up to 6 AM 04/24/19 06:00 Intake Total 2320 ml Output Total 1775 ml Balance 545 ml Laboratory Data 24H LABS Laboratory Tests 2 04/23/19 12:05: Anion Gap 8, Glomerular Filtration Rate 39.5, Blood Urea Nitrogen 31H, Creatinine 1.76H, Sodium Level 138, Potassium Level 4.0, Chloride Level 105, Carbon Dioxide Level 25, Calcium Level 8.4L 04/23/19 17:56: Anion Gap 9, Glomerular Filtration Rate 40.8, Blood Urea Nitrogen 32H, Creatinine 1.71H, Sodium Level 139, Potassium Level 4.2, Chloride Level 104, Carbon Dioxide Level 26, Calcium Level 8.1L, Vitamin B12 Level 319, Folate 4.6L 04/24/19 05:41: Anion Gap 6L, Glomerular Filtration Rate 44.1, Blood Urea Nitrogen 32H, Creatinine 1.60H, Sodium Level 139, Potassium Level 4.5, Chloride Level 106, Carbon Dioxide Level 27, Calcium Level 8.1L, Nucleated Red Blood Cells % (auto) 0.0 CBC/BMP Laboratory Tests 04/23/19 12:05 Calcium Level 8.4 L 04/23/19 17:56 Calcium Level 8.1 L 04/24/19 05:41 Calcium Level 8.1 L, Red Blood Count 2.80 L, Mean Corpuscular Volume 98.9 H, Mean Corpuscular Hemoglobin 32.9, Mean Corpuscular Hemoglobin Concent 33.2, Red Cell Distribution Width 13.1 Microbiology Microbiology 04/21/19 MRSA Screen - Final, Complete 04/21/19 Respiratory Virus Panel (PCR) ([facility]) - Final, Complete 04/20/19 Blood Culture - Preliminary, Resulted No Growth after 72 hours. All specime... 04/20/19 Urine Culture - Final, Complete Escherichia Coli Enterococcus Faecalis Aerococcus Urinae 04/20/19 Blood Culture - Preliminary, Resulted No Growth after 72 hours. All specime... GME ATTESTATION GME ATTESTATION My faculty preceptor for this patient encounter was physically present during the encounter and was fully available. All aspects of the patient interview, examination, medical decision making process, and medical care plan development were reviewed and approved by the faculty preceptor. The faculty preceptor is aware and concurs with the plan as stated in the body of this note and will attest to such by his/her cosignature. MONICA OSMAN MD Apr 24, 2019 11:05
[2019-04-24 12:12] LABS: ALBUMIN 3.08 GM/DL (3.29-5.55); ALPHA-1-GLOBULIN % 7.3 % (2.9-4.9); ALPHA-1-GLOBULINS 0.41 GM/DL (0.17-0.41); ALPHA-2-GLOBULINS 0.81 GM/DL (0.42-0.99); ALPHA-2-GLOBULINS % 14.4 % (7.1-11.8); BETA-1-GLOBULINS 0.35 GM/DL (0.28-0.60); BETA-1-GLOBULINS % 6.3 % (4.7-7.2); BETA-2-GLOBULINS 0.43 GM/DL (0.19-0.55); BETA-2-GLOBULINS % 7.6 % (3.2-6.5); GAMMA GLOBULIN % 9.4 % (11.1-18.8); GAMMA GLOBULINS 0.53 GM/DL (0.65-1.58)
[2019-04-24 14:12] VITALS: BP 123/43
[2019-04-24] MEDS: TORSEMIDE 10 MG TABLET PO SCH (15:13)
[2019-04-24] MEDS: NICOTINE 21MG/24HR 1 EA TRANSDERMAL TD SCH (21:02)
[2019-04-24] MEDS: ROSUVASTATIN 10 MG TAB (CRESTOR) PO SCH (21:03)
[2019-04-24 21:21] VITALS: BP 145/67
[2019-04-25] MEDS: LEVALBUTEROL 1.25 MG/0.5 ML CONCENTRATE NEB NEB SCH ×3 (03:40→07:34)
[2019-04-25 06:24] VITALS: BP 132/66
--- NOTE | 2019-04-25 07:33 | DSES ---
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 Sophia Lange Patient wanted to sign out against medical advise on 04/24/2019, but changed his mind and is discharged this morning in stable condition. PRIMARY DISCHARGE DIAGNOSIS: Acute on chronic renal failure stage 3, acute encephalopathy secondary to urinary tract infection (UTI), chronic obstructive pulmonary artery disease (COPD) exacerbation, congestive heart failure exacerbation with preserved ejection fraction, diastolic dysfunction, urinary tract infection (UTI) with Enterococcus and E. 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 DISCHARGE INSTRUCTIONS: Followup with Dr. Lange for management of uremia. Followup with music adapter for congestive heart failure. Tobacco cessation. DISCHARGE MEDICATIONS: - prednisone taper - amlodipine 5 mg twice a day - Levaquin 750 every 48 hours five tablets - nicotine patch 21 mg daily - acetaminophen diphenhydramine one tab at bedtime - albuterol ProAir two puffs every 4 hours as needed - atenolol 25 daily - vitamin D 50,000 units every 2 weeks - potassium 200 mEq daily - rosuvastatin 40 mg daily - tamsulosin 0.4 - torsemide 10 mg daily HOSPITAL COURSE: This is an 83-year-old male brought in by his girlfriend and daughter due to increased sleepiness, decreased energy, fatigue, weakness, foul-smelling urine through his condom catheter with leakage around that area. Patient was recently diagnosed with a urinary tract infection (UTI) and was given Bactrim, he continued to take his torsemide and benazepril at home. Was found to have acute renal failure with a creatinine of 1.94. Patient did present to the emergency room the day before and left against medical advice, brought home by his girlfriend with a creatinine of 2.26, lactic acid of 4.3. Patient did not want to stay in the hospital and therefore was discharged against medical advice. At that time due to confusions he showed parenchymal loss, age related small vessel white matter angiopathic gliosis and ventricle dilatation normal for age, but no acute findings. Due to worsening fatigue daughter urged the father to come in to the emergency room (ER) and subsequently agreed to admission. His chest x-ray was negative. Urinalysis grew E. coli and Enterococcus faecalis sensitive to Levaquin which was renally dosed. Patient's condom catheter was discontinued and Is Os and possible obstruction, patient was given a Mason catheter. Renal ultrasound was negative for hydronephrosis. Chest CT showed centrilobular emphysema. He had significant wheezing on exam and was admitted for chronic obstructive pulmonary artery disease (COPD) exacerbation. Patient's torsemide, benazepril, and Bactrim were discontinued. Patient was afebrile. No complaints of cough. He was given IV Solu-Medrol with nebulizer treatments every 4 hours with Xopenex, supraventricular tachycardia and subsequently improved. After fluid hydration of 2 liters patient has had no significant improvement. Mason catheter was not placed until 2 days into the admission and therefore urine output was not truly adequate. There was leakage around the condom catheter. Nephrology was consulted due to no significant improvement in patient's renal function with discontinuation of Bactrim, benazepril, and torsemide with a peak creatinine of 2.22. Dr. Lange had given him one dose of intravenous Lasix 40 mg with urine output on 04/22 of 3.4 liters, a -3.1 liters in total. Patient's repeat chest x-rays on 04/22 and 04/21 showed negative portable x-ray, otherwise the lung baker are clear. Patient's respiratory status improved. He was kept on fluid restrictions, strict intake and output, he was adamant about leaving against medical advise despite being on IV Solu Medrol 80 mg every 6 hours which was transitioned to by mouth prednisone. Recommendations are to watch him overnight and make sure that he is stable on torsemide as well as prednisone. His girlfriend was going to take him home. We have put out a call to the patient's daughter to encourage him to stay in the hospital to make sure that his renal function and respiratory status are stable. Patient was found to steroid induced leukocytosis with his white count increasing to 13.9 with tapering of prednisone patient's white count is expected to decrease. LABS ON DISCHARGE: White count 13.9, hemoglobin 9.2, hematocrit 27, platelet count 234, sodium 139, potassium 4.5, chloride 106, bicarbonate 27, BUN 32, creatinine 1.6, glucose of 136. Microbiology: Urine culture E. Coli, Enterococcus faecalis, Enterococcus urinae cui sensitive. Blood cultures negative. On 04/20 methicillin-resistant Staphylococcus aureus (MRSA) screen and respiratory panel were negative. IMAGING STUDIES: Chest CT 04/20/2019 - There is a centrilobular emphysema. Fusiform dilatation of the ascending thoracic aorta measuring 4 cm. No saccular component. Right adrenal mass measuring 2.5 x 2.6 cm. Left adrenal mass measuring 1.8 x 1.8 cm. Findings not completely evaluated. Further evaluation with opposed phase MRI would be helpful if clinically desired. TIME SPENT ON DISCHARGE: 30 minutes.
[2019-04-25] MEDS: TIOTROPIUM INHALER/CAPSULE (SPIRIVA) INH SCH (07:34)
[2019-04-25] MEDS: IRON POLYSAC (NIFEREX) 150 MG CAP PO SCH (07:57)
[2019-04-25] MEDS: CYANOCOBALAMIN 500 MCG TAB PO SCH (07:58)
[2019-04-25] MEDS: POTASSIUM CHLORIDE 10 MEQ SR TABLET PO SCH (07:58)
[2019-04-25] MEDS: TAMSULOSIN 0.4 MG CAP PO SCH (07:58)
[2019-04-25] MEDS: predniSONE 20 MG TAB PO SCH (07:58)
[2019-04-25] MEDS: ATENOLOL 25 MG TAB PO SCH (07:59)
[2019-04-25] MEDS: TORSEMIDE 10 MG TABLET PO SCH (07:59)
[2019-04-25] MEDS: DOCUSATE SODIUM 100 MG CAP PO SCH (08:00)
[2019-04-25] MEDS: HEPARIN SOD (PORCINE) 5000 UNITS/ML VIAL SC SCH (08:00)
[2019-04-25] MEDS: FOLIC ACID 1 MG TAB PO SCH (08:00)
[2019-04-25 08:01] VITALS: BP 138/53
[2019-04-25] MEDS: amLODIPine 5 MG TAB PO SCH (08:01)
[2019-04-25] MEDS: ASCORBIC ACID 500 MG TAB PO SCH (08:02)
--- NOTE | 2019-04-25 14:14 | DS.PDOC ---
Discharge Summary General Date of Admission Apr 20, 2019 at 17:40 Date of Discharge 04/25/2019 Discharge Summary PROCEDURES PERFORMED DURING STAY: [None]. ADMITTING DIAGNOSES / DISCHARGE DIAGNOSES: Acute on chronic renal failure stage 3 acute encephalopathy secondary to urinary tract infection (UTI), chronic obstructive pulmonary artery disease (COPD) exacerbation, congestive heart failure exacerbation with preserved ejection fraction, diastolic dysfunction, urinary tract infection (UTI) with Enterococcus and E. 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 DVT prophylaxis COMPLICATIONS/CHIEF COMPLAINT: Returned at family's request after he had left AMA HISTORY OF PRESENT ILLNESS / HOSPITAL COURSE: Patient remained for an additional day and was medically cleared for discharge. He has cleared physical therapy. Patient is reported that he's doing significantly better. He notes that he will be leaving today regardless if he receives medical clearance or not. Patient has been advised to follow up with his primary care provider within the next 7 days and remain compliant with treatment plan and medications. He's been instructed to return to the ER if he experiences any problems. Please see discharge summary completed by Dr. Saeed DISCHARGE MEDICATIONS: Please see below. ALLERGIES: Please see below. PHYSICAL EXAMINATION ON DISCHARGE: Vitals (See below) General: Lying in bed, no acute distress, comfortable, AAOx3 HEENT: NC, AT CVS: +S1S2 Lungs: Fair air entry b/l, mild wheezing, no rhonchi / rales Abdomen: Soft, ND, NT Extremities: - Edema, - Calf tenderness LABORATORY DATA: Please see below. ACTIVITY: [As tolerated]. DISCHARGE PLAN: Advised to remain compliant with treatment plan and medications Return to the ER if you experience any problems DISPOSITION: Home, Self-Care. DISCHARGE CONDITION: [Stable]. TIME SPENT ON DISCHARGE: 20 minutes Vital Signs/I&Os Vital Signs Date Time Temp Pulse Resp B/P (MAP) Pulse Ox O2 Delivery O2 Flow Rate FiO2 04/25/19 08:01 76 138/53 04/25/19 06:24 98.2 18 95 04/23/19 03:20 Room Air I&O- Last 24 Hours up to 6 AM 04/25/19 06:00 Intake Total 2300 ml Output Total 890 ml Balance 1410 ml Microbiology Microbiology 04/21/19 MRSA Screen - Final, Complete 04/21/19 Respiratory Virus Panel (PCR) ([facility]) - Final, Complete 04/20/19 Blood Culture - Preliminary, Resulted No Growth after 72 hours. All specime... 04/20/19 Urine Culture - Final, Complete Escherichia Coli Enterococcus Faecalis Aerococcus Urinae 04/20/19 Blood Culture - Preliminary, Resulted No Growth after 72 hours. All specime... Discharge Medications Scheduled Acetaminophen/Diphenhydramine (Acetaminophen Pm Caplet) 1 Tab Tab, 1 TAB PO QHS, (Reported) Amlodipine Besylate (Amlodipine Besylate) 5 Mg Tablet, 5 MG PO BID Atenolol (Atenolol) 25 Mg Tablet, 25 MG PO DAILY, (Reported) Ergocalciferol (Vitamin D2) (Vitamin D2) 50,000 Unit Cap, 50,000 UNIT PO Q2WK, (Reported) Levofloxacin (Levaquin) 750 Mg Tablet, 750 MG PO Q48H Nicotine (Nicotine Patch) 21 Mg Patch.td24, 1 PATCH TD QHS Potassium Chloride (Potassium Chloride) 20 Meq Tablet.er, 20 MEQ PO DAILY, (Reported) Prednisone (Prednisone) 10 Mg Tablet, 10 MG PO TAPER Take 4 tabs daily x 3 days, then 3 tabs daily x 3 days, then 2 tabs daily x 3 days, then 1 tab daily x 3 days and stop Rosuvastatin Calcium (Rosuvastatin Calcium) 40 Mg Tablet, 40 MG PO QHS, (Reported) Tamsulosin HCl (Flomax) 0.4 Mg Cap, 0.4 MG PO DAILY, (Reported) Torsemide (Torsemide) 10 Mg Tablet, 10 MG PO DAILY, (Reported) INSTRUCTED TO HOLD UNTIL PATIENT GETS NOTICE FROM CARDIOLOGY TO START AGAIN. Scheduled PRN Albuterol Sulfate (Proair Hfa) 8.5 Gm Hfa.aer.ad, 2 PUFF INH Q4H PRN for SHORTNESS OF BREATH, (Reported) Allergies Coded Allergies: cephalexin (Verified Allergy, Mild, rash/hives, 04/19/19) LEANNA WEISS MD Apr 25, 2019 14:14
[2019-04-26 11:09] LABS: UPEP INTERPRETATION NO M-SPIKE NOTED; URINE VOLUME RANDOM ML
== END 2019-04-25 11:03 | disposition home health service (06) | DRG 682 ==
LOC: EDBD 16:13 → M ED 16:13 → M ED INP 17:40 → M PCU 19:40 → M MS5PR 04-21 16:05
PROVIDERS: ADMIT General Practice; ATTEND General Practice
DX: N17.9 Acute kidney failure, unspecified (principal); I50.33 Acute on chronic diastolic (congestive) heart failure; G93.41 Metabolic encephalopathy; J44.1 Chronic obstructive pulmonary disease with (acute) exacerbation; I13.0 Hypertensive heart and chronic kidney disease with heart failure and stage 1 through stage 4 chronic kidney disease, or unspecified chronic kidney disease; N39.0 Urinary tract infection, site not specified; B95.2 Enterococcus as the cause of diseases classified elsewhere; B96.20 Unspecified Escherichia coli [E. coli] as the cause of diseases classified elsewhere; D63.1 Anemia in chronic kidney disease; N18.3 Chronic kidney disease, stage 3 (moderate); N40.0 Benign prostatic hyperplasia without lower urinary tract symptoms; D50.9 Iron deficiency anemia, unspecified; I77.810 Thoracic aortic ectasia; E78.5 Hyperlipidemia, unspecified; M60.9 Myositis, unspecified; T46.6X5A Adverse effect of antihyperlipidemic and antiarteriosclerotic drugs, initial encounter; F17.210 Nicotine dependence, cigarettes, uncomplicated; Z96.642 Presence of left artificial hip joint; Z79.899 Other long term (current) drug therapy; Z88.1 Allergy status to other antibiotic agents

== ENCOUNTER → 2019-08-09 | Outpatient (REF) | payer MEDICARE ==
[~2019-08-09] MED LIST changes: +AMLO5TAB6 PO; +BACT800T5 PO; +BENA10TA PO; +LEVA750T7 PO; +NICO21PAT TD; +POTA1TAB14 PO; -SIMV40TA2 PO; +SIMV40TA20 PO; +TORS10TA3 PO
[2019-08-09 18:00] LABS: TOTAL PROTEIN 6.8 GM/DL (6.4-8.2)
== END ==
LOC: M LAB REF 16:50
PROVIDERS: ATTEND Internal Medicine Nephrology
DX: R80.9 Proteinuria, unspecified (principal)

== ENCOUNTER 2019-08-13 21:09 | Inpatient (IN) | payer MEDICARE ==
[~2019-08-13] VITALS: Ht 172.7 cm; Wt 78.1 kg
[~2019-08-13 21:09] MED LIST changes: +NICOTINE 21MG/24HR 1 EA TRANSDERMAL TD ONE; +VITAMIN D 50,000 UNITS CAPSULE (ERGOCALCIFEROL 1.25MG) PO SCH
[2019-08-13 21:44] LABS: BASO % 0.3 % (0.0-1.0); EOS # 0.1 10^3/uL (0.0-0.5); EOS % 0.7 % (0.0-3.0); HEMATOCRIT 41.5 % (42.0-52.0); HEMOGLOBIN 12.9 g/dl (13.5-17.5); LYMPH # 1.4 10^3/uL (1.5-5.0); LYMPH % 13.5 % (24.0-44.0); MEAN CORPUSCULAR HGB CONC 31.1 g/dl (32.0-36.5); MEAN CORPUSCULAR VOLUME 99.8 fl (80.0-96.0); MONO # 0.8 10^3/uL (0.0-0.8); NEUTROPHILS # 7.9 10^3/uL (1.5-8.5); NEUTROPHILS % 77.1 % (36.0-66.0); PLATELET COUNT, AUTOMATED 210 10^3/uL (150-450); RED BLOOD COUNT 4.16 10^6/uL (4.30-6.10); WHITE BLOOD COUNT 10.2 10^3/uL (4.0-10.0)
[2019-08-13] MEDS ORDERED: NS 1,000 ML IV ONE (21:45)
[2019-08-13] MEDS ORDERED: LIDOCAINE 2% 5ML JELLY UROJET TOP ONE (21:45)
[2019-08-13] MEDS ORDERED: NS 1,000 ML IV SCH (21:45)
[2019-08-13] MEDS: HEPARIN SOD (PORCINE) 5000 UNITS/ML VIAL (J1644 PER 1000UNITS) SC SCH (22:00)
[2019-08-13 22:46] LABS: AMORPHOUS SEDIMENT SMALL (NEGATIVE); APPEARANCE, URINE HAZY (CLEAR); BACTERIA, URINE AUTO 1+ (NEGATIVE); BILIRUBIN, URINE AUTO NEGATIVE (NEGATIVE); BLOOD, URINE BLOOD 3+ (NEGATIVE); COLOR, URINE YELLOW (YELLOW); GLUCOSE, URINE (UA) AUTO NEGATIVE (NEGATIVE); KETONE, URINE AUTO TRACE mg/dL (NEGATIVE); LEUKOCYTE ESTERASE, URINE AUTO 2+ (NEGATIVE); NITRITE, URINE AUTO NEGATIVE (NEGATIVE); PROTEIN, URINE AUTO 2+ mg/dL (NEGATIVE); RBC, URINE AUTO 4 /HPF (0-3); SPECIFIC GRAVITY URINE AUTO 1.013 (1.002-1.035); SQUAMOUS EPITHELIAL CELL UR AU 0 /HPF (0-6); WBC, URINE AUTO 130 /HPF (0-3)
[2019-08-13 22:46] LABS: ALBUMIN 3.4 GM/DL (3.2-5.2); BILIRUBIN,DIRECT 0.3 MG/DL (0.0-0.2); BILIRUBIN,TOTAL 0.6 MG/DL (0.2-1.0); CK-MB VALUE MASS 8.9 NG/ML (<3.6); CREATININE FOR GFR 2.12 MG/DL (0.70-1.30); GLOMERULAR FILTRATION RATE 31.8 (>35); MB/CK RELATIVE INDEX 0.62 (< OR =4); POTASSIUM SERUM 3.5 MEQ/L (3.5-5.1); THYROID STIMULATING HORMONE 2.56 uIU/ML (0.358-3.740); TOTAL PROTEIN 6.5 GM/DL (6.4-8.2); TROPONIN I 0.18 NG/ML (< 0.10)
[2019-08-13 23:13] LABS: INFLUENZA A AMPLIFICATION NEGATIVE (NEGATIVE); INFLUENZA B AMPLIFICATION NEGATIVE (NEGATIVE)
--- NOTE | 2019-08-13 23:13 | REPVR ---
PROCEDURE INFORMATION: Exam: CT Head Without Contrast Exam date and time: 08/13/2019 10:53 PM Age: 84 years old Clinical indication: Altered mental status/memory loss; Additional info: AMS TECHNIQUE: Imaging protocol: Computed tomography of the head without contrast. Radiation optimization: All CT scans at this facility use at least one of these dose optimization techniques: automated exposure control; mA and/or kV adjustment per patient size (includes targeted exams where dose is matched to clinical indication); or iterative reconstruction. COMPARISON: CT Head without contrast 04/19/2019 7:33 PM FINDINGS: Brain: There are moderate periventricular and subcortical lucencies consistent with chronic microvascular ischemic changes.The kellogg-white differentiation is maintained. No hemorrhage. No edema.Ventricles and sulci are prominent consistent with age appropriate parenchymal volume loss. Ventricles: See Brain Finding. Bones/joints: Unremarkable. No acute fracture. Sinuses: Visualized sinuses are unremarkable. No fluid levels. Mastoid air cells: Visualized mastoid air cells are well aerated. Soft tissues: Unremarkable. IMPRESSION: No acute intracranial abnormality. Chronic microvascular ischemic changes. Electronically signed by: Dayton Anne On 08/13/2019 23:13:11 PM
[2019-08-13] MEDS ORDERED: CIPROFLOXACIN 400 MG in IV 1 EA IV ONE (23:30)
[2019-08-13] MEDS ORDERED: MULTCHW12 PO (23:52)
[2019-08-13] MEDS ORDERED: VITA50005 PO (23:52)
[2019-08-14] MEDS ORDERED: ACETAMINOPHEN TAB 650MG DOSE (2X325MG) PO PRN
--- NOTE | 2019-08-14 01:13 | HPEPDOC ---
General Date of Admission 08/14/2019 Date of Service: Aug 14, 2019 Attending Physician: CELINA ALBERTS MD Chief Complaint The patient is a 84-year-old male admitted with a reason for visit of AMS. Source: Patient, Family Exam Limitations: No limitations Timing/Duration: Day(s) Associated Symptoms: Malaise, Weakness History of Present Illness 83 -year-old man HTN, HLD, BPH, CKD, chronic urinary and bowel incontinence with chronic condom catheter who presented to the ER with AMS of lethargy and not being himself, progressive weakness, inability to ambulate per baseline and dark foul smelling urine. Family denied any fevers, chills, chest pain, report of palpitations or worsening back pain from baseline. They otherwise have noted worsening dyspnea on exertion, stable chronic productive cough, reduced PO and continues to smoke at this time. He otherwise denied any nausea, vomiting, abdominal pain, constipation, diarrhea or any discomfort with urination. In the ED, he was otherwise hemodynamically stable and afebrile and breathing comfortably on room air. Workup was notable for CT head without acute pathology, UA+ with bacteria, leuks, blood with pending UCx and BCx, WBC 10.2, Hgvb 12.9, Hct 41.5, CK 1428, trop 0.18, lactate 1.2, Cr 2.12 and mild transmanitirs to AST 62, ALT 52 without hyperbilirubinemia and normal alk phos. He was given empiric IV cipro, 1L NS and started on fluids at 250cc/hr and admitted to medicine for a UTI with metabolic encephalopathy as well as deconditioning. Home Medications Scheduled Acetaminophen/Diphenhydramine (Acetaminophen Pm Caplet) 1 Tab Tab, 1 TAB PO QHS, (Reported) Atenolol (Atenolol) 25 Mg Tablet, 25 MG PO DAILY, (Reported) Ergocalciferol (Vitamin D2) (Vitamin D2) 50,000 Units Cap, 50,000 UNITS PO Q2WK, (Reported) EVERY OTHER TUESDAY NIGHT Folic Acid/Multivit-Min/Lutein (Multi-Vitamin Gummies) 1 Each Tab.chew, 1 CHW PO QPM, (Reported) AT DINNERTIME Potassium Chloride (Potassium Chloride) 20 Meq Tablet.er, 20 MEQ PO DAILY, (Reported) Rosuvastatin Calcium (Rosuvastatin Calcium) 40 Mg Tablet, 40 MG PO QHS, (Reported) Tamsulosin HCl (Flomax) 0.4 Mg Cap, 0.4 MG PO DAILY, (Reported) Torsemide (Torsemide) 10 Mg Tablet, 10 MG PO DAILY, (Reported) Scheduled PRN Albuterol Sulfate (Proair Hfa) 8.5 Gm Hfa.aer.ad, 2 PUFF INH Q4H PRN for SHORTNESS OF BREATH, (Reported) Allergies Coded Allergies: cephalexin (Verified Allergy, Intermediate, rash/hives, 08/13/19) Past Medical History Medical History HTN, DLP, BPH, CKD, chronic urinary and bowel incontinence Surgical History Left hip replacement in 2009 Family History Mother with history of parkinsonism Father with history of lung cancer Social History * Smoker: current smoker Alcohol: Denies Drugs: denies Recent Travel/Sick Contacts: Denies: Recent travel, Recent sick contacts Psychosocial History: No pertinent psych hx Denies the use of alcohol or illicit drugs; patient is a smoker of about 60 years at 1 PPD Denies recent travel or sick contacts Lives with significant other 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; 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 Minimal ambulation recently at baseline, just completed 6w of PT, recently only walking a few steps before he is winded A-FIB/CHADSVASC A-FIB History Current/History of A-Fib/PAF?: No Age/Risk Factor Scoring CHADSVASC: CHADSVASC Response (Comments) Value Age Risk Factor Age >/= 75 years old 2 Gender Risk Factor Male 0 Hx of CHF Yes 1 Hx of HTN Yes 1 Hx of Stroke/TIA/or VTE No 0 Hx of Diabetes No 0 Hx of Vascular Disease No 0 Total 4 Treatment Treatment ordered: NONE Reason Anticoagulant not given: Not indicated/[id number] Review of Systems Constitutional: Reports: Weakness, Fatigue, Lethargy; Denies: Chills, Fever, Night Sweats Eyes: Denies: Pain, Vision change ENT: Denies: Head Aches, Ear Pain, Dysphagia Skin: Denies: Rash, Lesions, Breakdown Pulmonary: Denies: Dyspnea, Cough Cardiovascular: Denies: Chest Pain, Palpitations, Orthopnea, Paroxysmal Noc. Dyspnea, Lt Headedness Gastrointestinal: Denies: Nausea, Vomiting, Abdominal Pain, Diarrhea Genitourinary: Reports: Incontinence (chronic), Other Symptoms (foul smelling urine recently); Denies: Dysuria, Frequency, Hematuria Hematologic: Denies: Bruising, Bleeding Excessively Endocrine: Denies: Polydipsia, Polyphagia, Polyuria, Heat Intolerance, Cold I ntolerance, Other Endocrine Sx Musculoskeletal: Reports: Back Pain (chronic) Neurological: Reports: Weakness, Confusion; Denies: Numbness, Change in speech Psych: Reports: Mood Normal, Memory Issues (sometimes has confusion recently); Denies: Depression Physical Examination General Exam: Positive: Alert, No Acute Distress, Other (disheveled, ill appearing) Eye Exam: Positive: PERRLA, Conjunctiva & lids normal, EOMI; Negative: Sclera icteric ENT Exam: Positive: Atraumatic, Pharynx Normal; Negative: Mucous membr. moist/pink (dry MM) Neck Exam: Positive: Supple; Negative: JVD, thyromegaly Chest Exam: Positive: Clear to auscultation, Normal air movement; Negative: Rales, Rhonchi, Wheezing, Diminished Heart Exam: Positive: Rate Normal, Regular Rhythm, Normal S1, Normal S2; Negative: Murmurs, Rubs Telemetry: Positive: No significant arrhythmia Abdomen Exam: Positive: Normal bowel sounds, Soft; Negative: Tenderness, Hepatospenomegaly Extremity Exam: Positive: Normal pulses; Negative: Clubbing, Cyanosis, Edema Skin Exam: Positive: Other skin issue (dry, tenting) Neuro Exam: Positive: Normal Speech; Negative: Strength at 5/5 X4 ext (4/5 throughout, can raise against gravity but barely against resistance) Psych Exam: Positive: Mental status NL, Oriented x 3 Vital Signs Vital Signs Date Time Temp Pulse Resp B/P (MAP) Pulse Ox O2 Delivery O2 Flow Rate FiO2 08/13/19 23:45 72 129/60 (83) 95 08/13/19 21:22 96.4 17 Room Air Laboratory Data Labs 24H Laboratory Tests 2 08/13/19 21:32: Lactic Acid Level 1.2 08/13/19 21:33: Immature Granulocyte % (Auto) 0.4, Neutrophils (%) (Auto) 77.1H, Lymphocytes (%) (Auto) 13.5L, Monocytes (%) (Auto) 8.0H, Eosinophils (%) (Auto) 0.7, Basophils (%) (Auto) 0.3, Neutrophils # (Auto) 7.9, Lymphocytes # (Auto) 1.4L, Monocytes # (Auto) 0.8, Eosinophils # (Auto) 0.1, Basophils # (Auto) 0.0, Nucleated Red Blood Cells % (auto) 0.0, Anion Gap 5L, Glomerular Filtration Rate 31.8L, Calcium Level 9.0, Total Bilirubin 0.6, Direct Bilirubin 0.3H, Aspartate Amino T ransf (AST/SGOT) 62H, Alanine Aminotransferase (ALT/SGPT) 52, Alkaline Phosphatase 83, Total Creatine Kinase 1428H, Creatine Kinase MB 8.9H, Creatine Kinase MB Relative Index 0.62, Troponin I 0.18H, Total Protein 6.5, Albumin 3.4, Albumin/Globulin Ratio 1.10, Thyroid Stimulating Hormone (TSH) 2.560 08/13/19 22:37: Urine Color YELLOW, Urine Appearance HAZY, Urine pH 6.0, Urine Specific [place] 1.013, Urine Protein 2+H, Urine Glucose (Auto)(UA) NEGATIVE, Urine Ketones (Auto) TRACEH, Urine Blood 3+H, Urine Nitrite NEGATIVE, Urine Bilirubin NEGATIVE, Urine Urobilinogen 2.0H, Urine Leukocyte Esterase (Auto) 2+H, Urine WBC (Auto) 130H, Urine RBC (Auto) 4H, Urine Hyaline Casts (Auto) 0, Urine Bacteria (Auto) 1+H, Urine Squamous Epithelial Cells 0, Urine Amorphous Sediment (Auto) SMALLH, Urine Sperm (Auto) , Influenza Type A (RT-PCR) NEGATIVE, Influenza Type B (RT-PCR) NEGATIVE 08/13/19 23:45: Bedside Gl[facility]) 81L CBC/BMP Laboratory Tests 08/13/19 21:33 Microbiology Microbiology 08/13/19 Blood Culture, Received Pending 08/13/19 Urine Culture, Received Pending 08/13/19 Blood Culture, Received Pending Assessment/Plan 83 -year-old man HTN, HLD, BPH, CKD, chronic urinary and bowel incontinence with chronic condom catheter who presented to the ER with AMS of lethargy and not being himself, progressive weakness, inability to ambulate per baseline and dark foul smelling urine being admitted for a UTI and metabolic encephalopathy. UTI: foul smelling urine, +UA, generalized weakness, some confusion. -continue empiric cipro -follow up UCx -s/p 1L NS in the ED, dry on exam, continue fluids at 150cc/hr overnight -Remove bradley placed in ED and restart condom catheter for chronic incontinence -strict I/Os ANGELINA on CKD: known recent baseline had been ~1.6, but recently in clinic was up to 2.4, so slightly improved to 2.12 but suspect some prerenal element from dry exam -check AM BMP after fluids -renally dose cipro -hold home diuretics while dry and receiving fluids Troponinemia with stable non ischemic EKG and no chest pain while infected: likely demand ischemia that is technically a Type 2 NSTEMI -monitor dCHF: well compensated and actually appearing hypovolemic on exam -hold home torsemide for now, receiving fluids -strict I/Os COPD in smoker: Exam is at baseline without wheezing, crackles or hypoxemia -continue home meds Smoking -cessation counseling, not considering quitting right now -nicotine patch order HTN - Blood pressure appears well controlled, continue home atenolol HLD - c/w rosuvastatin BPH - c/w Tamsulosin DVT prophylaxis - Will start heparin Plan / VTE VTE Prophylaxis Ordered?: Yes CELINA ALBERTS MD Aug 14, 2019 01:13
[2019-08-14 02:55] VITALS: BP 132/72
[2019-08-14 04:00] VITALS: BP 116/55
[2019-08-14] MEDS: NS 1,000 ML IV SCH ×4 (04:32→21:00)
[2019-08-14 05:32] LABS: HEMATOCRIT 35.9 % (42.0-52.0); HEMOGLOBIN 11.6 g/dl (13.5-17.5); MEAN CORPUSCULAR HGB CONC 32.3 g/dl (32.0-36.5); MEAN CORPUSCULAR VOLUME 98.9 fl (80.0-96.0); PLATELET COUNT, AUTOMATED 191 10^3/uL (150-450); RED BLOOD COUNT 3.63 10^6/uL (4.30-6.10); WHITE BLOOD COUNT 10.5 10^3/uL (4.0-10.0)
[2019-08-14] MEDS: HEPARIN SOD (PORCINE) 5000 UNITS/ML VIAL (J1644 PER 1000UNITS) SC SCH ×3 (05:36→21:00)
[2019-08-14 06:20] LABS: CALCIUM LEVEL 8.1 MG/DL (8.8-10.2); CREATININE FOR GFR 1.94 MG/DL (0.70-1.30); GLOMERULAR FILTRATION RATE 35.2 (>35); MAGNESIUM LEVEL 2.4 MG/DL (1.8-2.4); POTASSIUM SERUM 2.9 MEQ/L (3.5-5.1)
[2019-08-14] MEDS ORDERED: POTASSIUM CHLORIDE 10 MEQ SR TABLET PO ONE (07:00)
--- NOTE | 2019-08-14 07:37 | REP ---
The portable chest, 09:43 p.m., single AP view with the patient semi upright: Comparison is 04/22/2019. The lung baker are clear. The cardiac size is normal. The nathan, mediastinum, and skeletal structures are unremarkable. Impression: Negative portable chest. The under aeration present in the lung bases on the comparison study is no longer present on the current study. Electronically Signed by Florencio Chun MD 08/14/2019 07:28 A
--- NOTE | 2019-08-14 07:51 | ECGEPIP ---
[facility] - ED Test Date: 2019-08-13 Pat Name: RICH TREVIÑO Department: Room: [place] [address] Gender: Male [employer]: EMMA : 1935 Requested By: THERON WINSTON Order Number: [id number] Reading MD: Ryan Marshall Measurements Intervals [place] Rate: 65 P: 57 CO: 205 QRS: -13 QRSD: 67 T: 26 QT: 404 QTc: 420 Interpretive Statements SINUS RHYTHM WITH OCCASIONAL SUPRAVENTRICULAR PREMATURE COMPLEXES NSTTW ABNORMALITIES BASELINE ARTIFACT AFFECTS INTERPRETATION SIMILAR TO 04/20/19 Electronically Signed on 08-14-2019 7:51:31 EST by Ryan Mrashall
[2019-08-14 08:00] VITALS: BP 132/61
[2019-08-14] MEDS ORDERED: NICOTINE 21MG/24HR 1 EA TRANSDERMAL TD ONE (09:00)
[2019-08-14] MEDS: TAMSULOSIN 0.4 MG CAP PO SCH (09:09)
[2019-08-14] MEDS: atenoloL 25 MG TAB PO SCH (09:10)
[2019-08-14] MEDS: POTASSIUM CHLORIDE 10 MEQ SR TABLET PO SCH (09:10)
[2019-08-14] MEDS: MULTIVITAMINS/MINERALS THERAP 1 TAB PO SCH (09:10)
--- NOTE | 2019-08-14 10:47 | IPNPDOC ---
Subjective Date Seen The patient was seen on 08/14/19. Subjective Chief Complaint/HPI Ballotable. No new complaints in no distress General: Denies: ROS Unobtainable, Chills, Night Sweats, Fatigue, Malaise, Nor mal Appetite, Other Symptoms Constitutional: Denies: Chills, Fever, Malaise, Night Sweats, Weakness, Fatigue, Weight Loss, Lethargy, Other Eyes: Denies: Pain, Vision change, Conjunctivae inflammation, Eyelid inflammation, Redness, Other ENT: Denies: Head Aches, Ear Pain, Dysphagia, Sinus Congestion, Post Nasal Drip, Sore Throat, Epistaxis, Other Symptoms Skin: Denies: Rash, Lesions, Jaundice, Bruising, Itching, Dry, Breakdown, Nail Changes, Other Pulmonary: Denies: Dyspnea, Cough, Pleuritic Chest Pain, Other Symptoms Cardiovascular: Denies: Chest Pain, Palpitations, Orthopnea, Paroxysmal Noc. Dyspnea, Edema, Lt Headedness, Other Symptoms Endocrine: Denies: Polydipsia, Polyphagia, Polyuria, Heat Intolerance, Cold Intolerance, Other Endocrine Sx Musculoskeletal: Denies: Neck Pain, Back Pain, Shoulder Pain, Arm Pain, Hand Pain, Leg Pain, Foot Pain, Joint Pain, Muscle Pain, Spasms, Other Symptoms Neurological: Denies: Weakness, Numbness, Incoordination, Change in speech, Confusion, Seizures, Other Symptoms Objective Physical Examination Eye Exam: Negative: Sclera icteric ENT Exam: Positive: Atraumatic, Pharynx Normal; Negative: Mucous membr. moist/pink (dry MM) Neck Exam: Positive: Supple; Negative: JVD, thyromegaly Chest Exam: Positive: Clear to auscultation, Normal air movement; Negative: Rales, Rhonchi, Wheezing, Diminished Heart Exam: Positive: Rate Normal, Regular Rhythm, Normal S1, Normal S2; Negative: Murmurs, Rubs Telemetry: Positive: No significant arrhythmia Abdomen Exam: Positive: Normal bowel sounds, Soft; Negative: Tenderness, Hepatospenomegaly Extremity Exam: Positive: Normal pulses; Negative: Clubbing, Cyanosis, Edema Skin Exam: Positive: Other skin issue (dry, tenting) Assessment /Plan Problems (1) Metabolic encephalopathy Status: Acute Problem Text: Acute metabolic encephalopathy secondary to urinary tract infection , Which has a progressively resolved. Patient is awake, alert and oriented 3 Is still feeling lethargic but much improved Continue IV fluids Continue antibiotics Monitor clinically (2) UTI (urinary tract infection) Status: Acute Problem Text: foul smelling urine, +UA, generalized weakness, some confusion. continue empiric cipro follow up UCx s/p 1L NS in the ED, dry on exam, continue fluids at 150cc/hr overnight Remove bradley placed in ED and restart condom catheter for chronic incontinence strict I/Os (3) ANGELINA (acute kidney injury) Status: Acute Problem Text: known recent baseline had been ~1.6, but recently in clinic was up to 2.4, so slightly improved to 2.12 but suspect some prerenal element from dry exam Patient's BUN is 27, creatinine 1.94 renally dose cipro hold home diuretics while dry and receiving fluids (4) Demand ischemia of myocardium Status: Acute Problem Text: Troponinemia with stable non ischemic EKG and no chest pain while infected: likely demand ischemia that is technically a Type 2 NSTEMI Monitor troponins Activity present care (5) Hypokalemia Status: Acute Problem Text: Potassium supplement ordered Repeat labs at 2 PM and tomorrow (6) COPD (chronic obstructive pulmonary disease) Status: Chronic Problem Text: Continue home meds Plan/VTE VTE Prophylaxis Ordered?: Yes VS, I&O, 24H, Fishbone Vital Signs/I&O Vital Signs Date Time Temp Pulse Resp B/P (MAP) Pulse Ox O2 Delivery O2 Flow Rate FiO2 08/14/19 09:10 58 132/61 08/14/19 08:00 97.9 20 94 Room Air I&O- Last 24 Hours up to 6 AM 08/14/19 06:00 Intake Total 1200 ml Output Total 0 ml Balance 1200 ml Laboratory Data 24H LABS Laboratory Tests 2 08/13/19 21:32: Lactic Acid Level 1.2 08/13/19 21:33: Immature Granulocyte % (Auto) 0.4, Neutrophils (%) (Auto) 77.1H, Lymphocytes (%) (Auto) 13.5L, Monocytes (%) (Auto) 8.0H, Eosinophils (%) (Auto) 0.7, Basophils (%) (Auto) 0.3, Neutrophils # (Auto) 7.9, Lymphocytes # (Auto) 1.4L, Monocytes # (Auto) 0.8, Eosinophils # (Auto) 0.1, Basophils # (Auto) 0.0, Nucleated Red Blood Cells % (auto) 0.0, Anion Gap 5L, Glomerular Filtration Rate 31.8L, Calcium Level 9.0, Total Bilirubin 0.6, Direct Bilirubin 0.3H, Aspartate Amino Transf (AST/SGOT) 62H, Alanine Aminotransferase (ALT/SGPT) 52, Alkaline Phosphatase 83, Total Creatine Kinase 1428H, Creatine Kinase MB 8.9H, Creatine Kinase MB Relative Index 0.62, Troponin I 0.18H, Total Protein 6.5, Albumin 3.4, Albumin/Globulin Ratio 1.10, Thyroid Stimulating Hormone (TSH) 2.560 08/13/19 22:37: Urine Color YELLOW, Urine Appearance HAZY, Urine pH 6.0, Urine Specific [place] 1.013, Urine Protein 2+H, Urine Glucose (Auto)(UA) NEGATIVE, Urine Ketones (Auto) TRACEH, Urine Blood 3+H, Urine Nitrite NEGATIVE, Urine Bilirubin NEGATIVE, Urine Urobilinogen 2.0H, Urine Leukocyte Esterase (Auto) 2+H, Urine WBC (Auto) 130H, Urine RBC (Auto) 4H, Urine Hyaline Casts (Auto) 0, Urine Bacteria (Auto) 1+H, Urine Squamous Epithelial Cells 0, Urine Amorphous Sediment (Auto) SMALLH, Urine Sperm (Auto) , Influenza Type A (RT-PCR) NEGATIVE, Influenza Type B (RT-PCR) NEGATIVE 08/13/19 23:45: Bedside Glucose (Misc Panel) 81L 08/14/19 05:06: Nucleated Red Blood Cells % (auto) 0.0, Anion Gap 4L, Glomerular Filtration Rate 35.2, Calcium Level 8.1L, Magnesium Level 2.4 CBC/BMP Laboratory Tests 08/13/19 21:33 08/14/19 05:06 Microbiology Microbiology 08/13/19 Blood Culture, Received Pending 08/13/19 Urine Culture, Received Pending 08/13/19 Blood Culture, Received Pending BAUDILIO MEDEL MD Aug 14, 2019 10:47
[2019-08-14 12:27] LABS: POTASSIUM SERUM 3.4 MEQ/L (3.5-5.1); TROPONIN I 0.19 NG/ML (< 0.10)
[2019-08-14 16:00] VITALS: BP 123/58
[2019-08-14] MEDS: CIPROFLOXACIN 400 MG in IV 1 EA IV SCH (17:31)
[2019-08-14 20:00] VITALS: BP 147/64
[2019-08-14] MEDS: ROSUVASTATIN 10 MG TAB (CRESTOR) PO SCH (21:00)
[2019-08-14 22:03] LABS: CK-MB VALUE MASS 7.4 NG/ML (<3.6); MB/CK RELATIVE INDEX 0.77 (< OR =4); TROPONIN I 0.13 NG/ML (< 0.10)
[2019-08-15] VITALS: BP 141/72
[2019-08-15] MEDS: NS 1,000 ML IV SCH ×3 (01:25→16:17)
[2019-08-15 04:00] VITALS: BP 144/78
[2019-08-15] MEDS ORDERED: IPRATROPIUM 0.5MG/ALBUTEROL 2.5MG INH SOL UD 3ML (DUONEB)(J7620) NEB ONE (05:00)
[2019-08-15] MEDS: HEPARIN SOD (PORCINE) 5000 UNITS/ML VIAL (J1644 PER 1000UNITS) SC SCH ×3 (05:48→21:15)
[2019-08-15 05:53] LABS: BASO % 0.3 % (0.0-1.0); EOS # 0.1 10^3/uL (0.0-0.5); EOS % 1.5 % (0.0-3.0); HEMATOCRIT 31.7 % (42.0-52.0); HEMOGLOBIN 9.9 g/dl (13.5-17.5); LYMPH # 1.5 10^3/uL (1.5-5.0); LYMPH % 18.1 % (24.0-44.0); MEAN CORPUSCULAR HEMOGLOBIN 31.5 pg (27.0-33.0); MEAN CORPUSCULAR HGB CONC 31.2 g/dl (32.0-36.5); MONO # 0.7 10^3/uL (0.0-0.8); MONO % 8.5 % (0.0-5.0); NEUTROPHILS # 5.7 10^3/uL (1.5-8.5); NEUTROPHILS % 71.1 % (36.0-66.0); PLATELET COUNT, AUTOMATED 152 10^3/uL (150-450); RED BLOOD COUNT 3.14 10^6/uL (4.30-6.10)
[2019-08-15 06:19] LABS: ALBUMIN 2.4 GM/DL (3.2-5.2); BILIRUBIN,TOTAL 0.4 MG/DL (0.2-1.0); CALCIUM LEVEL 8.1 MG/DL (8.8-10.2); CREATININE FOR GFR 1.58 MG/DL (0.70-1.30); GLOMERULAR FILTRATION RATE 44.6 (>35); POTASSIUM SERUM 3.4 MEQ/L (3.5-5.1); TOTAL PROTEIN 5.2 GM/DL (6.4-8.2)
[2019-08-15 08:00] VITALS: BP 112/56
[2019-08-15] MEDS ORDERED: POTASSIUM CHLORIDE 10 MEQ SR TABLET PO ONE (08:30)
[2019-08-15] MEDS: TAMSULOSIN 0.4 MG CAP PO SCH (09:30)
[2019-08-15] MEDS: MULTIVITAMINS/MINERALS THERAP 1 TAB PO SCH (09:34)
[2019-08-15] MEDS: atenoloL 25 MG TAB PO SCH (09:34)
[2019-08-15] MEDS: POTASSIUM CHLORIDE 10 MEQ SR TABLET PO SCH (10:53)
[2019-08-15 12:00] VITALS: BP 126/60
[2019-08-15] MEDS: CIPROFLOXACIN 400 MG in IV 1 EA IV SCH (13:04)
[2019-08-15] MEDS ORDERED: SLF 3 ML SYR IV PRN (17:00)
--- NOTE | 2019-08-15 17:37 | IPNPDOC ---
Date Seen The patient was seen on 08/15/19. Progress Note SUBJECTIVE: 84-year-old male with past medical history of hypertension, chronic kidney disease and incontinence with chronic [place] catheter was admitted for UTI. Patient doing well today. As per , resting comfortably in chair, without any complaints at this time. He is tolerating his diet, denies any shortness of breath, chest pain, nausea, vomiting, altered diarrhea. 10 point review of system is negative except for above PHYSICAL EXAMINATION: VITAL SIGNS: Please see below. GENERAL: No distress HEENT: Normocephalic, atraumatic, moist mucous membranes NECK: Supple CARDIOVASCULAR EXAMINATION: S1, S2, no murmurs RESPIRATORY EXAMINATION: Clear to auscultation, no wheezing ABDOMINAL EXAMINATION: Soft, nontender, nondistended, positive bowel sounds EXTREMITIES: Range of motion intact SKIN: No rash NEUROLOGICAL EXAMINATION: Alert and oriented 3, no focal deficits PSYCHIATRIC EXAMINATION: Calm and cooperative LABORATORY DATA, IMAGING STUDIES, MICROBIOLOGY: Please see below. DVT prophylaxis ordered?: Yes ASSESSMENT AND PLAN: 84-year-old male with past mental history of hypertension, chronic kidney disease and incontinence with chronic [place] catheter was admitted for UTI. PROBLEMS: 1. UTI: Cultures growing pansensitive Escherichia coli, continue ciprofloxacin. 2. Hyperlipidemia: Continue statin. 3. Hypertension: Continue atenolol. 4. Chronic kidney disease: Creatinine at baseline, will monitor DVT progresses: Heparin subcutaneous GI prophylaxis: Not needed VS, I&O, 24H, Fishbone Vital Signs/I&O Vital Signs Date Time Temp Pulse Resp B/P (MAP) Pulse Ox O2 Delivery O2 Flow Rate FiO2 08/15/19 12:00 97.6 65 18 126/60 (82) 94 Room Air I&O- Last 24 Hours up to 6 AM 08/15/19 06:00 Intake Total 3462 ml Output Total 375 ml Balance 3087 ml Laboratory Data 24H LABS Laboratory Tests 2 08/14/19 17:55: Troponin I 0.15#H 08/14/19 21:20: Troponin I 0.13H, Total Creatine Kinase 956H, Creatine Kinase MB 7.4H, Creatine Kinase MB Relative Index 0.77 08/15/19 05:34: Immature Granulocyte % (Auto) 0.5, Neutrophils (%) (Auto) 71.1H, Lymphocytes (%) (Auto) 18.1L, Monocytes (%) (Auto) 8.5H, Eosinophils (%) (Auto) 1.5, Basophils (%) (Auto) 0.3, Neutrophils # (Auto) 5.7, Lymphocytes # (Auto) 1.5, Monocytes # (Auto) 0.7, Eosinophils # (Auto) 0.1, Basophils # (Auto) 0.0, Nucleated Red Blood Cells % (auto) 0.0, Anion Gap 4L, Glomerular Filtration Rate 44.6, Calcium Level 8.1L, Total Bilirubin 0.4, Aspartate Amino Transf (AST/SGOT) 45H, Alanine Aminotransferase (ALT/SGPT) 44, Alkaline Phosphatase 58, Total Protein 5.2L, Albumin 2.4#L, Albumin/Globulin Ratio 0.86L CBC/BMP Laboratory Tests 08/15/19 05:34 Microbiology Microbiology 08/13/19 Blood Culture - Preliminary, Resulted No growth after 24 hours . All specim... 08/13/19 Urine Culture - Final, Complete Escherichia Coli 08/13/19 Blood Culture - Preliminary, Resulted No growth after 24 hours . All specim... KARLOS ORR MD Aug 15, 2019 17:37
[2019-08-15 20:00] VITALS: BP 106/53
[2019-08-15] MEDS: ROSUVASTATIN 10 MG TAB (CRESTOR) PO SCH (21:15)
[2019-08-15] MEDS: SLF 3 ML SYR IV SCH (21:15)
[2019-08-15 23:59] VITALS: BP 147/67
[2019-08-16 01:30] VITALS: BP 139/62
[2019-08-16] MEDS ORDERED: IPRATROPIUM 0.5MG/ALBUTEROL 2.5MG INH SOL UD 3ML (DUONEB)(J7620) NEB ONE (02:00)
[2019-08-16 06:00] VITALS: BP 128/60
[2019-08-16 06:13] LABS: HEMATOCRIT 32.2 % (42.0-52.0); MEAN CORPUSCULAR HEMOGLOBIN 31.5 pg (27.0-33.0); MEAN CORPUSCULAR HGB CONC 31.1 g/dl (32.0-36.5); MEAN CORPUSCULAR VOLUME 101.6 fl (80.0-96.0); PLATELET COUNT, AUTOMATED 164 10^3/uL (150-450); RED BLOOD COUNT 3.17 10^6/uL (4.30-6.10); WHITE BLOOD COUNT 9.2 10^3/uL (4.0-10.0)
[2019-08-16] MEDS: CIPROFLOXACIN 400 MG in IV 1 EA IV SCH (06:18)
[2019-08-16] MEDS: SLF 3 ML SYR IV SCH ×3 (06:18→21:29)
[2019-08-16] MEDS: HEPARIN SOD (PORCINE) 5000 UNITS/ML VIAL (J1644 PER 1000UNITS) SC SCH ×3 (06:18→21:29)
[2019-08-16 06:38] LABS: CALCIUM LEVEL 7.7 MG/DL (8.8-10.2); CREATININE FOR GFR 1.52 MG/DL (0.70-1.30); GLOMERULAR FILTRATION RATE 46.6 (>35); POTASSIUM SERUM 3.5 MEQ/L (3.5-5.1)
[2019-08-16] MEDS ORDERED: POTASSIUM CHLORIDE 10 MEQ SR TABLET PO ONE (09:00)
[2019-08-16] MEDS: atenoloL 25 MG TAB PO SCH (09:54)
[2019-08-16] MEDS: TAMSULOSIN 0.4 MG CAP PO SCH (09:54)
[2019-08-16] MEDS: MULTIVITAMINS/MINERALS THERAP 1 TAB PO SCH (09:54)
--- NOTE | 2019-08-16 11:24 | IPNPDOC ---
Date Seen The patient was seen on 08/16/19. Progress Note SUBJECTIVE: 84-year-old male with past medical history of hypertension, chronic kidney disease and incontinence with chronic [place] catheter was admitted for UTI. Patient doing well today. As per , resting comfortably in chair, without any complaints at this time. He is tolerating his diet, denies any shortness of breath, chest pain, nausea, vomiting, altered diarrhea. 08/16/19 Patient comfortable, asymptomatic, evaluated by physical therapy and requires rehabilitation, awaiting placement. 10 point review of system is negative except for above PHYSICAL EXAMINATION: VITAL SIGNS: Please see below. GENERAL: No distress HEENT: Normocephalic, atraumatic, moist mucous membranes NECK: Supple CARDIOVASCULAR EXAMINATION: S1, S2, no murmurs RESPIRATORY EXAMINATION: Clear to auscultation, no wheezing ABDOMINAL EXAMINATION: Soft, nontender, nondistended, positive bowel sounds EXTREMITIES: Range of motion intact SKIN: No rash NEUROLOGICAL EXAMINATION: Alert and oriented 3, no focal deficits PSYCHIATRIC EXAMINATION: Calm and cooperative LABORATORY DATA, IMAGING STUDIES, MICROBIOLOGY: Please see below. DVT prophylaxis ordered?: Yes ASSESSMENT AND PLAN: 84-year-old male with past mental history of hypertension, chronic kidney disease and incontinence with chronic [place] catheter was admitted for UTI. PROBLEMS: 1. UTI: Cultures growing pansensitive Escherichia coli, continue ciprofloxacin. Evaluated by physical therapy and requires rehabilitation, awaiting placement, social work therapist arranging. 2. Hyperlipidemia: Continue statin. 3. Hypertension: Continue atenolol. 4. Chronic kidney disease: Creatinine at baseline, will monitor DVT progresses: Heparin subcutaneous GI prophylaxis: Not needed VS, I&O, 24H, Fishbone Vital Signs/I&O Vital Signs Date Time Temp Pulse Resp B/P (MAP) Pulse Ox O2 Delivery O2 Flow Rate FiO2 08/16/19 09:54 72 128/60 08/16/19 06:00 97.5 20 95 Room Air I&O- Last 24 Hours up to 6 AM 08/16/19 06:00 Intake Total 2450 ml Output Total 575 ml Balance 1875 ml Laboratory Data 24H LABS Laboratory Tests 2 08/16/19 05:21: Nucleated Red Blood Cells % (auto) 0.0, Anion Gap 4L, Glomerular Filtration Rate 46.6, Calcium Level 7.7L CBC/BMP Laboratory Tests 08/16/19 05:21 Microbiology Microbiology 08/13/19 Blood Culture - Preliminary, Resulted No Growth after 48 hours. All Specime... 08/13/19 Urine Culture - Final, Complete Escherichia Coli 08/13/19 Blood Culture - Preliminary, Resulted No Growth after 48 hours. All Specime... KARLOS ORR MD Aug 16, 2019 11:24
[2019-08-16 14:00] VITALS: BP 120/72
[2019-08-16] MEDS: IPRATROPIUM 0.5MG/ALBUTEROL 2.5MG INH SOL UD 3ML (DUONEB)(J7620) NEB PRN ×2 (14:47→20:40)
[2019-08-16] MEDS: ROSUVASTATIN 10 MG TAB (CRESTOR) PO SCH (21:28)
[2019-08-16 22:00] VITALS: BP 141/61
[2019-08-17] MEDS: CIPROFLOXACIN 400 MG in IV 1 EA IV SCH (00:17)
--- NOTE | 2019-08-17 00:35 | ECGEPIP ---
[facility] Test Date: 2019-08-14 Pat Name: RICH TREVIÑO Department: Room: [place] [address] Gender: Male Crm Coordinator: NANI : 1935 Requested By: MAGDY HEART D.O. Order Number: [id number] Reading MD: Alvaro Staton Measurements Intervals [place] Rate: 66 P: 38 [place]: 194 QRS: 2 QRSD: 68 T: 12 QT: 403 QTc: 423 Interpretive Statements SINUS RHYTHM WITH ISOLATED PACS MINIMAL ST DEPRESSION LOW-VOLTAGE QRS COMPLEXES IN THE LIMB LEADS COMPARED TO THE 5 TRACINGS IN THE SYSTEM, NO SIGNIFICANT CHANGES Electronically Signed on 08-17-2019 0:35:38 EST by Alvaro Staton
[2019-08-17 06:00] VITALS: BP 134/60
[2019-08-17] MEDS: HEPARIN SOD (PORCINE) 5000 UNITS/ML VIAL (J1644 PER 1000UNITS) SC SCH (06:26)
[2019-08-17] MEDS: SLF 3 ML SYR IV SCH (06:27)
[2019-08-17 06:29] LABS: HEMATOCRIT 30.8 % (42.0-52.0); MEAN CORPUSCULAR HEMOGLOBIN 32.1 pg (27.0-33.0); MEAN CORPUSCULAR HGB CONC 32.5 g/dl (32.0-36.5); MEAN CORPUSCULAR VOLUME 98.7 fl (80.0-96.0); PLATELET COUNT, AUTOMATED 180 10^3/uL (150-450); RED BLOOD COUNT 3.12 10^6/uL (4.30-6.10); WHITE BLOOD COUNT 8.6 10^3/uL (4.0-10.0)
[2019-08-17 07:00] LABS: CALCIUM LEVEL 8.4 MG/DL (8.8-10.2); CREATININE FOR GFR 1.56 MG/DL (0.70-1.30); GLOMERULAR FILTRATION RATE 45.3 (>35); MAGNESIUM LEVEL 1.8 MG/DL (1.8-2.4); PHOSPHORUS LEVEL 1.8 MG/DL (2.5-4.9); POTASSIUM SERUM 3.5 MEQ/L (3.5-5.1)
[2019-08-17] MEDS: TAMSULOSIN 0.4 MG CAP PO SCH (08:43)
[2019-08-17] MEDS: MULTIVITAMINS/MINERALS THERAP 1 TAB PO SCH (08:43)
[2019-08-17 08:44] VITALS: BP 134/60
[2019-08-17] MEDS: atenoloL 25 MG TAB PO SCH (08:44)
[2019-08-17] MEDS ORDERED: POTASSIUM PHOSPHATE INJ 30 MMOL in D5W 500 ML IV ONE (10:00)
[2019-08-17] MEDS ORDERED: CIPR500T3 PO (10:20)
--- NOTE | 2019-08-17 10:23 | DS.PDOC ---
Discharge Summary General Date of Admission Aug 13, 2019 at 23:58 Date of Discharge 08/17/19 Attending Physician: KARLOS ORR MD Discharge Summary PROCEDURES PERFORMED DURING STAY: None. ADMITTING DIAGNOSES: 1. UTI. DISCHARGE DIAGNOSES: 1. UTI. COMPLICATIONS/CHIEF COMPLAINT: Ams,General Weakness,Renal Failure Acute On Chroni. HISTORY OF PRESENT ILLNESS: 84-year-old male with past medical history of chronic kidney disease and hypertension was admitted for UTI and acute on chronic kidney disease. Patient's UTI was treated with ciprofloxacin, cultures grew pansensitive Escherichia coli, patient will be discharged on ciprofloxacin for 3 more days. Present carotid course. Patient's creatinine has returned to baseline, stable at this time. Patient was evaluated by physical therapy and rehabilitation was recommended, patient's rehabilitation has been arranged by long term care social worker and patient will be discharged there later today. Patient seen in the morning, comfortable, reports mild fatigue, does not wish to get out of bed at this time, no complaints. Patient is clinically and hemodynamically stable for discharge and outpatient follow-up. HOSPITAL COURSE: As above. DISCHARGE MEDICATIONS: Please see below. ALLERGIES: Please see below. PHYSICAL EXAMINATION: VITAL SIGNS: Please see below. GENERAL: No distress HEENT: Normocephalic, atraumatic, moist mucous membranes NECK: Supple CARDIOVASCULAR EXAMINATION: S1, S2, no murmurs RESPIRATORY EXAMINATION: Clear to auscultation, no wheezing ABDOMINAL EXAMINATION: Soft, nontender, nondistended, positive bowel sounds EXTREMITIES: Range of motion intact SKIN: No rash NEUROLOGICAL EXAMINATION: Alert and oriented 3, no focal deficits PSYCHIATRIC EXAMINATION: Calm and cooperative LABORATORY DATA: Please see below. PROGNOSIS: Fair ACTIVITY: As tolerated. DIET: Cardiac DISCHARGE PLAN: Follow with PCP in 1-2 weeks DISPOSITION: Rehabilitation. DISCHARGE INSTRUCTIONS: 1. As above. DISCHARGE CONDITION: Stable. TIME SPENT ON DISCHARGE: Greater than 34 minutes. Vital Signs/I&Os Vital Signs Date Time Temp Pulse Resp B/P (MAP) Pulse Ox O2 Delivery O2 Flow Rate FiO2 08/17/19 08:44 65 134/60 08/17/19 06:00 99.0 19 96 Room Air I&O- Last 24 Hours up to 6 AM 08/17/19 06:00 Intake Total 1460 ml Output Total 0 ml Balance 1460 ml Laboratory Data Labs 24H Laboratory Tests 2 08/16/19 20:45: Bedside Glucose (Misc Panel) 125H 1/31/20 06:07: Nucleated Red Blood Cells % (auto) 0.0, Anion Gap 5L, Glomerular Filtration Rate 45.3, Calcium Level 8.4L, Phosphorus Level 1.8L, Magnesium Level 1.8 CBC/BMP Laboratory Tests 08/17/19 06:07 FSBS Laboratory Tests Test 08/16/19 20:45 Range/Units Bedside Glucose (Misc Panel) 125 83-110 MG/DL Microbiology Microbiology 08/13/19 Blood Culture - Preliminary, Resulted No Growth after 72 hours. All specime... 08/13/19 Urine Culture - Final, Complete Escherichia Coli 08/13/19 Blood Culture - Preliminary, Resulted No Growth after 72 hours. All specime... Discharge Medications Scheduled Acetaminophen/Diphenhydramine (Acetaminophen Pm Caplet) 1 Tab Tab, 1 TAB PO QHS, (Reported) Atenolol (Atenolol) 25 Mg Tablet, 25 MG PO DAILY, (Reported) Ciprofloxacin HCl (Ciprofloxacin HCl) 500 Mg Tablet, 1 TAB PO BID Ergocalciferol (Vitamin D2) (Vitamin D2) 50,000 Units Cap, 50,000 UNITS PO Q2WK, (Reported) EVERY OTHER TUESDAY NIGHT Folic Acid/Multivit-Min/Lutein (Multi-Vitamin Gummies) 1 Each Tab.chew, 1 CHW PO QPM, (Reported) AT DINNERTIME Potassium Chloride (Potassium Chloride) 20 Meq Tablet.er, 20 MEQ PO DAILY, (Reported) Rosuvastatin Calcium (Rosuvastatin Calcium) 40 Mg Tablet, 40 MG PO QHS, (Reported) Tamsulosin HCl (Flomax) 0.4 Mg Cap, 0.4 MG PO DAILY, (Reported) Torsemide (Torsemide) 10 Mg Tablet, 10 MG PO DAILY, (Reported) Scheduled PRN Albuterol Sulfate (Proair Hfa) 8.5 Gm Hfa.aer.ad, 2 PUFF INH Q4H PRN for SHORTNESS OF BREATH, (Reported) Allergies Coded Allergies: cephalexin (Verified Allergy, Intermediate, rash/hives, 08/13/19) KARLOS ORR MD Aug 17, 2019 10:23
[2019-08-17] MEDS ORDERED: POTASSIUM CHLORIDE 10 MEQ SR TABLET PO ONE (11:00)
[2019-08-17] MEDS ORDERED: K-PHOS NEUTRAL 250MG TABLET (SOD.PHOSPHATE/POT.PHOSPHATE) PO ONE (12:00)
== END 2019-08-17 12:19 | DRG 689 ==
LOC: M ED 21:09 → M ED INP 23:58 → ENRESERVTM 08-14 02:26 → ENRESERVDT 08-14 02:26 → M PCU 08-14 02:50 → M MSPAV 08-16 01:29
PROVIDERS: ADMIT Internal Medicine; ATTEND Internal Medicine
DX: N39.0 Urinary tract infection, site not specified (principal); G93.41 Metabolic encephalopathy; I21.A1 Myocardial infarction type 2; N17.9 Acute kidney failure, unspecified; I50.32 Chronic diastolic (congestive) heart failure; I13.0 Hypertensive heart and chronic kidney disease with heart failure and stage 1 through stage 4 chronic kidney disease, or unspecified chronic kidney disease; I24.9 Acute ischemic heart disease, unspecified; E78.5 Hyperlipidemia, unspecified; N40.0 Benign prostatic hyperplasia without lower urinary tract symptoms; N18.9 Chronic kidney disease, unspecified; R32 Unspecified urinary incontinence; R41.82 Altered mental status, unspecified; Z79.899 Other long term (current) drug therapy; Z88.8 Allergy status to other drugs, medicaments and biological substances; R15.9 Full incontinence of feces; Z96.642 Presence of left artificial hip joint; F17.200 Nicotine dependence, unspecified, uncomplicated; J44.9 Chronic obstructive pulmonary disease, unspecified; E87.6 Hypokalemia; B96.20 Unspecified Escherichia coli [E. coli] as the cause of diseases classified elsewhere

== ENCOUNTER → 2019-08-17 | Outpatient (REF) | payer MEDICARE ==
[~2019-08-17] MED LIST changes: +CIPR500T3 PO; +MULTCHW12 PO; -NICOTINE 21MG/24HR 1 EA TRANSDERMAL TD ONE; -VITAMIN D 50,000 UNITS CAPSULE (ERGOCALCIFEROL 1.25MG) PO SCH
== END ==
PROVIDERS: ATTEND Internal Medicine
DX: Z79.899 Other long term (current) drug therapy (principal)

== ENCOUNTER → 2019-08-18 | Outpatient (REF) | payer MEDICARE ==
[2019-08-18 20:27] LABS: CK-MB VALUE MASS 2.9 NG/ML (<3.6)
== END ==
PROVIDERS: ATTEND Internal Medicine
DX: N39.0 Urinary tract infection, site not specified (principal)

== ENCOUNTER → 2019-08-20 | Outpatient (REF) ==
[2019-08-20 10:10] LABS: HEMATOCRIT 37.8 % (42.0-52.0); HEMOGLOBIN 11.6 g/dl (13.5-17.5); MEAN CORPUSCULAR HGB CONC 30.7 g/dl (32.0-36.5); MEAN CORPUSCULAR VOLUME 101.1 fl (80.0-96.0); PLATELET COUNT, AUTOMATED 259 10^3/uL (150-450); RED BLOOD COUNT 3.74 10^6/uL (4.30-6.10); WHITE BLOOD COUNT 8.6 10^3/uL (4.0-10.0)
[2019-08-20 10:37] LABS: CALCIUM LEVEL 8.7 MG/DL (8.8-10.2); CREATININE FOR GFR 1.58 MG/DL (0.70-1.30); GLOMERULAR FILTRATION RATE 44.6 (>35); POTASSIUM SERUM 4.2 MEQ/L (3.5-5.1)
== END ==
PROVIDERS: ATTEND Internal Medicine
DX: I10 Essential (primary) hypertension (principal)

== ENCOUNTER → 2019-08-22 | Outpatient (REF) ==
[2019-08-25 00:06] LABS: ANCA-ATYPICAL <1:20 titer (Neg:<1:20); ANTI DS-DNA AB Negative (Negative); ANTI-GLOMERULAR BASEMENT MEMB 2 units (0-20); ANTINUCLEAR ANTIBODIES DIRECT Negative (Negative); CYTOPLASMIC NEUTROP AB ANCA-C <1:20 titer (Neg:<1:20); FREE KAPPA LIGHT CHAINS SERUM 33.3 mg/L (3.3-19.4); FREE LAMBDA LIGHT CHAINS SERUM 26.6 mg/L (5.7-26.3); KAPPA/LAMBDA RATIO SERUM 1.25 (0.26-1.65); PERINUCLEAR AB ANCA-P <1:20 titer (Neg:<1:20)
== END ==
PROVIDERS: ATTEND Internal Medicine
DX: N18.9 Chronic kidney disease, unspecified (principal)

== ENCOUNTER → 2019-08-27 | Outpatient (REF) ==
[2019-08-27 09:25] LABS: HEMATOCRIT 36.8 % (42.0-52.0); HEMOGLOBIN 11.8 g/dl (13.5-17.5); MEAN CORPUSCULAR HEMOGLOBIN 31.7 pg (27.0-33.0); MEAN CORPUSCULAR HGB CONC 32.1 g/dl (32.0-36.5); MEAN CORPUSCULAR VOLUME 98.9 fl (80.0-96.0); PLATELET COUNT, AUTOMATED 333 10^3/uL (150-450); RED BLOOD COUNT 3.72 10^6/uL (4.30-6.10); WHITE BLOOD COUNT 8.4 10^3/uL (4.0-10.0)
[2019-08-27 09:50] LABS: CALCIUM LEVEL 9.2 MG/DL (8.8-10.2); CREATININE FOR GFR 1.33 MG/DL (0.70-1.30); GLOMERULAR FILTRATION RATE 54.4 (>35); POTASSIUM SERUM 3.9 MEQ/L (3.5-5.1)
== END ==
PROVIDERS: ATTEND Internal Medicine
DX: I10 Essential (primary) hypertension (principal)

== ENCOUNTER → 2019-09-04 | Outpatient (REF) ==
[2019-09-04 15:38] LABS: HEMATOCRIT 43.3 % (42.0-52.0); HEMOGLOBIN 13.5 g/dl (13.5-17.5); MEAN CORPUSCULAR HEMOGLOBIN 30.9 pg (27.0-33.0); MEAN CORPUSCULAR HGB CONC 31.2 g/dl (32.0-36.5); MEAN CORPUSCULAR VOLUME 99.1 fl (80.0-96.0); PLATELET COUNT, AUTOMATED 356 10^3/uL (150-450); RED BLOOD COUNT 4.37 10^6/uL (4.30-6.10); WHITE BLOOD COUNT 9.8 10^3/uL (4.0-10.0)
[2019-09-04 16:18] LABS: CALCIUM LEVEL 9.8 MG/DL (8.8-10.2); CREATININE FOR GFR 1.85 MG/DL (0.70-1.30); FREE T4 1.31 NG/DL (0.76-1.46); GLOMERULAR FILTRATION RATE 37.2 (>35); POTASSIUM SERUM 4.2 MEQ/L (3.5-5.1); THYROID STIMULATING HORMONE 4.6 uIU/ML (0.358-3.740)
== END ==
PROVIDERS: ATTEND Internal Medicine
DX: R53.82 Chronic fatigue, unspecified (principal)

== ENCOUNTER → 2019-09-05 | Outpatient (REF) ==
--- NOTE | 2019-09-05 11:08 | REP ---
Clinical: Cough . Comparison: 08/13/2019 . Technique: PA and lateral. Findings: The mediastinum and cardiac silhouette are normal. The lung baker are clear and without acute consolidation, effusion, or pneumothorax. The skeletal structures are intact and normal. Impression: 1. No acute cardiopulmonary process. Electronically Signed by Kenny Denson MD 09/05/2019 10:59 A
== END ==
LOC: M RAD 08:38
PROVIDERS: ATTEND Physician Assistant
DX: R05 Cough (principal)

== ENCOUNTER → 2019-09-12 | Outpatient (REF) ==
[2019-09-12 09:47] LABS: HEMATOCRIT 34.7 % (42.0-52.0); HEMOGLOBIN 11.3 g/dl (13.5-17.5); MEAN CORPUSCULAR HEMOGLOBIN 31.9 pg (27.0-33.0); MEAN CORPUSCULAR HGB CONC 32.6 g/dl (32.0-36.5); PLATELET COUNT, AUTOMATED 261 10^3/uL (150-450); RED BLOOD COUNT 3.54 10^6/uL (4.30-6.10); WHITE BLOOD COUNT 8.3 10^3/uL (4.0-10.0)
[2019-09-12 10:13] LABS: BLOOD UREA NITROGEN 9 MG/DL (7-18); CALCIUM LEVEL 8.4 MG/DL (8.8-10.2); CARBON DIOXIDE LEVEL 31 MEQ/L (21-32); CHLORIDE LEVEL 105 MEQ/L (98-107); CREATININE FOR GFR 0.98 MG/DL (0.70-1.30); GLOMERULAR FILTRATION RATE > 60.0 (>35); GLUCOSE, FASTING 79 MG/DL (70-100); POTASSIUM SERUM 3.9 MEQ/L (3.5-5.1); SODIUM LEVEL 141 MEQ/L (136-145)
== END ==
PROVIDERS: ATTEND Internal Medicine
DX: I10 Essential (primary) hypertension (principal)

== ENCOUNTER → 2019-09-17 | Outpatient (REF) ==
[2019-09-17 12:52] LABS: BASO % 0.5 % (0.0-1.0); EOS # 0.2 10^3/uL (0.0-0.5); EOS % 2.4 % (0.0-3.0); HEMATOCRIT 32.5 % (42.0-52.0); HEMOGLOBIN 10.5 g/dl (13.5-17.5); LYMPH # 1.6 10^3/uL (1.5-5.0); LYMPH % 20.1 % (24.0-44.0); MEAN CORPUSCULAR HEMOGLOBIN 31.6 pg (27.0-33.0); MEAN CORPUSCULAR HGB CONC 32.3 g/dl (32.0-36.5); MEAN CORPUSCULAR VOLUME 97.9 fl (80.0-96.0); MONO # 0.8 10^3/uL (0.0-0.8); MONO % 9.7 % (0.0-5.0); NEUTROPHILS # 5.4 10^3/uL (1.5-8.5); NEUTROPHILS % 66.9 % (36.0-66.0); PLATELET COUNT, AUTOMATED 271 10^3/uL (150-450); RED BLOOD COUNT 3.32 10^6/uL (4.30-6.10)
[2019-09-17 13:10] LABS: ALBUMIN 2.8 GM/DL (3.2-5.2); BLOOD UREA NITROGEN 19 MG/DL (7-18); CALCIUM LEVEL 8.6 MG/DL (8.8-10.2); CARBON DIOXIDE LEVEL 27 MEQ/L (21-32); CHLORIDE LEVEL 107 MEQ/L (98-107); CREATININE FOR GFR 0.96 MG/DL (0.70-1.30); GLOMERULAR FILTRATION RATE > 60.0 (>35); GLUCOSE, FASTING 85 MG/DL (70-100); PHOSPHORUS LEVEL 3.2 MG/DL (2.5-4.9); SODIUM LEVEL 141 MEQ/L (136-145); URIC ACID 3.3 MG/DL (3.5-7.2)
== END ==
PROVIDERS: ATTEND Internal Medicine
DX: N18.9 Chronic kidney disease, unspecified (principal)

== ENCOUNTER → 2020-01-16 | Outpatient (REF) | payer MEDICARE ==
[2020-01-16 17:36] LABS: PERCENT SATURATION 11.2 % (19.7-50.0)
== END ==
LOC: M LAB REF 16:35
PROVIDERS: ATTEND Internal Medicine Nephrology
DX: D64.9 Anemia, unspecified (principal)

== ENCOUNTER → 2020-04-17 | Outpatient (REF) | payer MEDICARE ==
[~2020-04-17] MED LIST changes: +AMLO1TAB24 PO; -AMLO5TAB6 PO
== END ==
LOC: M LAB REF 17:11
PROVIDERS: ATTEND Internal Medicine Nephrology
DX: N39.0 Urinary tract infection, site not specified (principal)

== ENCOUNTER → 2020-05-22 | Outpatient (REF) | payer MEDICARE ==
[~2020-05-22] MED LIST changes: +ACET1TAB55 PO; +ALBU83IN NEB; +FERR324T2 PO; +MELA3TAB29 PO; +NITR100C2 PO; +POTA10CA32 PO
[2020-05-22 17:45] LABS: APPEARANCE, URINE CLOUDY (CLEAR); BACTERIA, URINE AUTO 3+ (NEGATIVE); BILIRUBIN, URINE AUTO NEGATIVE (NEGATIVE); BLOOD, URINE BLOOD 1+ (NEGATIVE); COLOR, URINE YELLOW (YELLOW); GLUCOSE, URINE (UA) AUTO NEGATIVE (NEGATIVE); KETONE, URINE AUTO NEGATIVE (NEGATIVE); LEUKOCYTE ESTERASE, URINE AUTO 3+ (NEGATIVE); NITRITE, URINE AUTO POSITIVE (NEGATIVE); PROTEIN, URINE AUTO 1+ mg/dL (NEGATIVE); RBC, URINE AUTO 3 /HPF (0-3); SPECIFIC GRAVITY URINE AUTO 1.021 (1.002-1.035); SQUAMOUS EPITHELIAL CELL UR AU 0 /HPF (0-6); UROBILINOGEN, URINE AUTO 0.2 mg/dL (0.0-2.0); WBC, URINE AUTO TNTC /HPF (0-3)
== END ==
LOC: M SMT 16:53
PROVIDERS: ATTEND Nurse Practitioner Women's Health
DX: N39.0 Urinary tract infection, site not specified (principal)
CPT/HCPCS: 51798; 81001; 87088; 87186; G0463

== ENCOUNTER → 2020-05-29 | Outpatient (CLI) | payer MEDICARE ==
--- NOTE | 2020-05-29 16:07 | REP ---
INDICATION: UTI, URINARY INCONTINENCE. COMPARISON: Images of the upper abdomen from CT chest 04/20/2019 TECHNIQUE: Scanning through the abdomen and pelvis with coronal and sagittal reconstructions provided. An orthopedic metal artifact reduction algorithm in the pelvis was used because of a left total hip arthroplasty. FINDINGS: CT abdomen: Lung bases show left pleural effusion and dense consolidation with air bronchograms consolidation posteriorly in the left lower lobe and representing acute pneumonia. Some patchy atelectasis or infiltrate is seen in the right lower lobe. There is no hepatomegaly, focal hepatic mass nor intrahepatic biliary dilatation. Gallbladder shows no calcified stone or mass. There is some degradation of image quality due to the patient's arms being folded over his upper abdomen. Adrenal glands show stable appearance of bilateral adrenal nodules representing adrenal adenomas. These are low-density on the previous study with the left showing a -8.8 HU. The right previously had -3.3 HU is somewhat higher today but felt to represent artifact of adjacent spray artifact from his arms. Size and appearance of the gland is unchanged. Kidneys show no stone or hydronephrosis. The ureters show normal course the bladder no without dilatation or stone. Scattered stool and gas in the abdominal portion of the colon with some diverticulosis on the left without diverticulitis small bowel loops unremarkable. Atherosclerotic calcifications of the abdominal aorta without aneurysm. No periaortic, retroperitoneal or other intra-abdominal lymphadenopathy. Lung window review of all CT slices shows no perforation or free air. Lung window review of all CT slices abdomen pelvis shows no perforation or free air. Bone windows show diffuse degenerative disc changes and facet arthropathy in the lower lumbar spine no compression deformity or destructive lesion. The visualized lower ribs and sternum were also unremarkable. CT pelvis: Sacrum was intact. There is sacralization of transverse processes of the L5 which are fused to S1. The SI joints appear fused. The iliac wings are intact. There is advanced degenerative change with [id number] appearance of the right hip and large osteophytes, flattening of the femoral head, subchondral cystic changes in the femoral head and acetabular roof seen. There has been a left total hip arthroplasty. Pubic rami and symphysis pubis intact, there is diverticulosis of the distal left colon and proximal sigmoid. There is significant distention of the rectum and distal sigmoid with the large fecal bolus. The bladder is compressed anteriorly by this significantly distended rectum. 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 No visible dilated ureter or ureteral stone. I see no ventral or inguinal hernia nor pathologic sized inguinal adenopathy. No pelvic lymphadenopathy seen. There are no inflammatory changes about the cecum. IMPRESSION: 1. Significant distention of the rectosigmoid region with the large stool bolus and this compresses the bladder anteriorly. No colonic obstruction, diverticulitis colitis or mass of the abdominopelvic portion of colon seen 2. No renal, ureteral or bladder stone or hydronephrosis. No hydroureter. 3. Diffuse atherosclerotic calcifications aorta iliac and femoral vessels without aneurysm. 4. Small bowel loops unremarkable. Solid organs in the upper abdomen without acute finding. There are bilateral adrenal adenomas unchanged from prior study. 5. 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 <Electronically signed by Fabian Schmitt > 05/29/20 [id number]
== END ==
LOC: M RAD 14:13
PROVIDERS: ATTEND Nurse Practitioner Women's Health
DX: N39.0 Urinary tract infection, site not specified (principal); N40.1 Benign prostatic hyperplasia with lower urinary tract symptoms; D35.01 Benign neoplasm of right adrenal gland; D35.02 Benign neoplasm of left adrenal gland; Z96.642 Presence of left artificial hip joint; I70.0 Atherosclerosis of aorta; K57.30 Diverticulosis of large intestine without perforation or abscess without bleeding

== ENCOUNTER 2020-05-31 10:30 | Inpatient (IN) | payer MEDICARE ==
[2020-05-31] VITALS (10 sets, daily range): BP systolic 96–157; BP diastolic 46–76
[~2020-05-31] VITALS: Ht 170.2 cm; Wt 92.8 kg
[~2020-05-31 10:30] MED LIST changes: -ACET1TAB55 PO; -ALBU83IN NEB; -FERR324T2 PO; -MELA3TAB29 PO; -NITR100C2 PO; -POTA10CA32 PO
[2020-05-31 11:14] LABS: BASO % 0.2 % (0.0-1.0); HEMOGLOBIN 12.4 g/dl (13.5-17.5); LYMPH # 0.2 10^3/uL (1.5-5.0); LYMPH % 1.8 % (24.0-44.0); MEAN CORPUSCULAR HEMOGLOBIN 29.4 pg (27.0-33.0); MEAN CORPUSCULAR HGB CONC 30.2 g/dl (32.0-36.5); MEAN CORPUSCULAR VOLUME 97.2 fl (80.0-96.0); MONO # 0.6 10^3/uL (0.0-0.8); MONO % 4.7 % (0.0-5.0); NEUTROPHILS # 11.6 10^3/uL (1.5-8.5); NEUTROPHILS % 92.9 % (36.0-66.0); PLATELET COUNT, AUTOMATED 260 10^3/uL (150-450); RED BLOOD COUNT 4.22 10^6/uL (4.30-6.10); WHITE BLOOD COUNT 12.4 10^3/uL (4.0-10.0)
[2020-05-31] MEDS ORDERED: PIPERACILLIN/TAZOBACTAM SOD 4.5 GM in D5W MINI-BAG PLUS 50 ML IV ONE (11:15)
--- NOTE | 2020-05-31 11:35 | REP ---
INDICATION: Altered Mental Status. COMPARISON: 09/05/2019 FINDINGS: The technique utilized in obtaining the radiograph has magnified the cardiac silhouette and accentuated the interstitial markings. A patchy opacity has developed in the left lower lobe silhouetting out the left heart border and diaphragmatic surface of the left lung. The right lung is unchanged. The osseous structures are unchanged. IMPRESSION: Left lower lobe pneumonia/atelectasis/effusion <Electronically signed by Leonardo Durán > 05/31/20 [id number]
[2020-05-31] MEDS ORDERED: NITR100C2 PO (11:39)
[2020-05-31 11:41] LABS: ALBUMIN 3.1 GM/DL (3.2-5.2); ALT/SGPT 41 U/L (12-78); BILIRUBIN,DIRECT 0.1 MG/DL (0.0-0.2); BILIRUBIN,TOTAL 0.5 MG/DL (0.2-1.0); BLOOD UREA NITROGEN 28 MG/DL (7-18); CALCIUM LEVEL 8.7 MG/DL (8.8-10.2); CARBON DIOXIDE LEVEL 29 MEQ/L (21-32); CHLORIDE LEVEL 107 MEQ/L (98-107); CK-MB VALUE MASS < 1.0 NG/ML (<3.6); CPK CREATINE PHOSPHOKINASE 114 U/L (39-308); CREATININE FOR GFR 1.55 MG/DL (0.70-1.30); GLOMERULAR FILTRATION RATE 45.5 (>35); GLUCOSE, FASTING 157 MG/DL (70-100); MB/CK RELATIVE INDEX 0.88 (< OR =4); POTASSIUM SERUM 4.2 MEQ/L (3.5-5.1); SODIUM LEVEL 143 MEQ/L (136-145); TROPONIN I 0.07 NG/ML (< 0.10)
[2020-05-31] MEDS ORDERED: ACET1TAB55 PO (12:03)
[2020-05-31] MEDS ORDERED: ALBU83IN NEB (12:03)
[2020-05-31] MEDS ORDERED: POTA10CA32 PO (12:03)
[2020-05-31] MEDS ORDERED: FERR324T2 PO (12:03)
[2020-05-31] MEDS ORDERED: MELA3TAB29 PO (12:03)
[2020-05-31] MEDS ORDERED: NS 1,000 ML IV ONE (12:30)
[2020-05-31] MEDS ORDERED: methylPREDNISolone 125MG 2ML VIAL IV SCH (13:30)
[2020-05-31] MEDS ORDERED: LevoFLOXacin IV 500 MG in IV 1 EA IV ONE (14:00)
[2020-05-31 15:31] LABS: ABG BASE EXCESS -3.6 (-2.0-2.0); ABG O2 SATURATION 91.5 % (95.0-99.0); ABG PARTIAL PRESSURE CO2 47.7 mmHg (35.0-45.0); ABG PARTIAL PRESSURE O2 65.6 mmHg (75.0-100.0); ABG STANDARD HCO3 21.4 MEQ/L (22.0-26.0); ABG TOTAL CO2 24.5 MEQ/L (23.0-31.0); ABG pH (ARTERIAL) 7.301 UNITS (7.350-7.450)
[2020-05-31] MEDS ORDERED: SODIUM CHLORIDE 0.9% 1000ML IV STA (16:10)
[2020-05-31] MEDS ORDERED: ACETAMINOPHEN *IV* 1,000 MG in IV 1 EA IV ONE (16:15)
[2020-05-31] MEDS: IPRATROPIUM 0.5MG/ALBUTEROL 2.5MG INH SOL UD 3ML (DUONEB) NEB SCH ×2 (16:24→20:17)
[2020-05-31] MEDS: TAMSULOSIN 0.4 MG CAP PO SCH (16:45)
[2020-05-31] MEDS: atenoloL 25 MG TAB PO SCH (16:45)
[2020-05-31] MEDS: ENOXAPARIN 30MG/0.3ML SYRINGE (J1650 PER 10MG) SC SCH (17:04)
[2020-05-31 17:22] LABS: ABG BASE EXCESS -0.5 (-2.0-2.0); ABG HCO3 24.6 MEQ/L (22.0-26.0); ABG O2 SATURATION 99.2 % (95.0-99.0); ABG PARTIAL PRESSURE CO2 42.5 mmHg (35.0-45.0); ABG PARTIAL PRESSURE O2 173.1 mmHg (75.0-100.0); ABG STANDARD HCO3 24.1 MEQ/L (22.0-26.0); ABG TOTAL CO2 25.9 MEQ/L (23.0-31.0); ABG pH (ARTERIAL) 7.381 UNITS (7.350-7.450)
[2020-05-31] MEDS: PIPERACILLIN/TAZOBACTAM SOD 3.375 GM in D5W MINI-BAG PLUS 50 ML IV SCH ×2 (18:08→23:07)
[2020-05-31] MEDS: ROSUVASTATIN 10 MG TAB (CRESTOR) PO SCH (20:51)
[2020-05-31] MEDS: methylPREDNISolone 125MG 2ML VIAL IV SCH (21:08)
[2020-06-01] VITALS (17 sets, daily range): BP systolic 124–145; BP diastolic 59–80; O2SAT 92–97
[2020-06-01] MEDS: IPRATROPIUM 0.5MG/ALBUTEROL 2.5MG INH SOL UD 3ML (DUONEB) NEB SCH ×4 (02:03→19:11)
[2020-06-01 04:43] LABS: BASO % 0.1 % (0.0-1.0); HEMATOCRIT 34.9 % (42.0-52.0); HEMOGLOBIN 10.9 g/dl (13.5-17.5); LYMPH # 0.3 10^3/uL (1.5-5.0); LYMPH % 3.1 % (24.0-44.0); MEAN CORPUSCULAR HEMOGLOBIN 30.5 pg (27.0-33.0); MEAN CORPUSCULAR HGB CONC 31.2 g/dl (32.0-36.5); MEAN CORPUSCULAR VOLUME 97.8 fl (80.0-96.0); MONO # 0.1 10^3/uL (0.0-0.8); MONO % 1.4 % (0.0-5.0); NEUTROPHILS # 8.9 10^3/uL (1.5-8.5); NEUTROPHILS % 95.1 % (36.0-66.0); PLATELET COUNT, AUTOMATED 211 10^3/uL (150-450); RED BLOOD COUNT 3.57 10^6/uL (4.30-6.10); WHITE BLOOD COUNT 9.3 10^3/uL (4.0-10.0)
[2020-06-01 05:03] LABS: CALCIUM LEVEL 8.3 MG/DL (8.8-10.2); CREATININE FOR GFR 1.44 MG/DL (0.70-1.30); GLOMERULAR FILTRATION RATE 49.5 (>35); POTASSIUM SERUM 3.7 MEQ/L (3.5-5.1)
[2020-06-01] MEDS: PIPERACILLIN/TAZOBACTAM SOD 3.375 GM in D5W MINI-BAG PLUS 50 ML IV SCH ×3 (05:10→17:24)
[2020-06-01] MEDS: methylPREDNISolone 125MG 2ML VIAL IV SCH ×2 (08:44→19:56)
[2020-06-01] MEDS: ENOXAPARIN 30MG/0.3ML SYRINGE (J1650 PER 10MG) SC SCH (08:45)
[2020-06-01] MEDS: atenoloL 25 MG TAB PO SCH ×2 (08:45→09:43)
[2020-06-01] MEDS: TAMSULOSIN 0.4 MG CAP PO SCH ×2 (08:45→09:43)
[2020-06-01] MEDS ORDERED: SLF 3 ML SYR IV PRN (11:30)
[2020-06-01] MEDS: SLF 3 ML SYR IV SCH ×2 (13:55→19:57)
[2020-06-01] MEDS ORDERED: LevoFLOXacin IV 250 MG in IV 1 EA IV SCH (14:00)
--- NOTE | 2020-06-01 14:43 | HPE ---
DATE OF ADMISSION: 05/31/2020 PRIMARY CARE PROVIDER: [facility]. HISTORY OF PRESENT ILLNESS: The patient, he goes by Douglas, is admitted with a left-sided pneumonia. He was in his usual state of somewhat poor health when he went to bed last night. This morning, he woke up with chills, weak, and confused. He was brought to the emergency room. Chest x-ray showed a left-sided pneumonia. He is being admitted for further treatment. He has altered mental status and with sepsis secondary to his infection. He has a history of recurrent urinary tract infections and currently, under treatment for a Klebsiella urinary infection diagnosed 05/22/2020. Previously to that, he had an E. coli UTI 04/17/2020 and 08/13/2019. He was admitted in July for this. He has chronic kidney disease stage III and is followed by Dr. Conde of the nephrology group. He has chronic urinary and bowel incontinence, wears a condom catheter. OTHER PAST MEDICAL HISTORY: 1. Hyperlipidemia. 2. Vitamin D deficiency. 3. Hypertensive heart disease. 4. BPH. PAST SURGICAL HISTORY: Left hip replacement 2009. ALLERGIES: KEFLEX CAUSED A RASH. FAMILY HISTORY: Mother with Parkinson's disease and father lung cancer. SOCIAL HISTORY: Still smokes about a pack a day. 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 No significant alcohol. His significant other is Charla Daniels who is in home with him. ADVANCED DIRECTIVES: He has a health care proxy, but has not filled out a MOLST form. He has a [place] nurse who comes to his home to see him. I do not think he has been seen by a physician in a while. REVIEW OF SYSTEMS: As above. No hematuria, rectal bleeding, hemoptysis, or unexplained weight loss. MEDICATIONS: - Albuterol by nebulizer inhaler as needed - Atenolol 25 mg daily - Drisdol 50,000 units monthly - Currently on Macrobid 50 mg b.i.d. for his urinary infection - potassium chloride 10 mEq daily - rosuvastatin 40 mg daily - tamsulosin 0.4 mg daily - torsemide 10 mg every 2 days - Tylenol as needed - ferrous sulfate 325 mg at bedtime - melatonin 3 mg at bedtime PHYSICAL EXAMINATION: VITAL SIGNS: Blood pressure 155/67, pulse 83, O2 saturation 95% on 2 liters. Reportedly afebrile. I do not see a recorded fever. GENERAL APPEARANCE: Chronically ill-appearing, lying on his side. He answers questions, but the answers are vague. HEENT: Grossly unremarkable. He did have his mask on. LUNGS: Rhonchi and wheezes more left than right. HEART: Regular rate and rhythm, 1/6 systolic ejection murmur. ABDOMEN: Soft and nontender with no masses and no organomegaly. He has a condom catheter on. EXTREMITIES: No clubbing or cyanosis. Trace peripheral edema. Decreased pulses of the feet, but still palpable. NEUROLOGIC: He is oriented to place and person, but not time or month. LABORATORY DATA: White count 12.4, hemoglobin 12.4, platelets 260,000. Sodium 143, potassium 4.2, BUN 28, creatinine 1.5, GFR 45, baseline creatinine is around 1.0. Liver functions normal. COVID test was reportedly negative. IMAGING: Chest x-ray showed left-sided infiltrate with effusion. IMPRESSION: 1. Left-sided pneumonia healthcare-associated. He has had frequent visits to the urologist, as well as recent emergency room visit. He was treated with Levaquin dose adjusted for renal function, nebulized bronchodilator, and Solu- Medrol 40 mg IV daily for five days for empiric steroid coverage. Nebulized bronchodilator has been ordered. 2. Acute kidney injury. Adjust doses based upon this. Gentle hydration ordered. Recheck in the morning. If renal function deteriorates further, will consult nephrology. 3. Chronic urinary incontinence with condom catheter. Continue tamsulosin. 4. Hyperlipidemia. Continue statin therapy. 5. Hypertension. Continue his current dose of Atenolol. MTDD
--- NOTE | 2020-06-01 14:47 | IPN ---
DATE: 05/31/2020 I was called by the emergency room after Malick was sent for a CT scan of the chest. He desaturated upon lying down in the CT scanner. Dropped his oxygen saturations to around 83%. Brought back to the emergency room (ER). Required high-flow oxygen up to a non-rebreather to maintain satisfactory oxygen levels. They then titrated him back down to 4 liters and took him up to four pavilion. Staff called me upon his arrival. He was tight, wheezing, and seemed to having increasing respiratory distress. I went up and evaluated him immediately. He was much more wheezy and tight than he was in the emergency room. His oxygen saturation was 91% on 6 liters. Stat arterial blood gas (ABG) has been ordered. Consultation placed for Dr. Amato. Case was discussed. Patient transferred to intensive care unit (ICU) and consultation placed. WARD
--- NOTE | 2020-06-01 14:52 | CR ---
DATE OF CONSULTATION: 05/31/2020 CHIEF COMPLAINT: Altered mental status and hypoxia. HISTORY OF PRESENT ILLNESS: Mr. Crane is an 85-year-old male with a past medical history of hypertension, hyperlipidemia, chronic kidney disease (CKD), benign prostatic hypertrophy (BPH) with history of chronic urinary and bowel incontinence with chronic condom catheter, who presented with reported complaints of altered mental status and lethargy. History of was obtained from the chart and from other collateral sources as the patient is nonverbal currently and unable to provide a history. In the emergency department (ED), the patient presented with fever of 102, as well as being more lethargic and as per the family, unable to ambulate or walk. He was being treated reportedly as an outpatient for urinary tract infection (UTI) with antibiotics for at least 3 days. In the emergency department (ED), the patient was febrile. He was also tachypneic and was noted to be hypoxic. The patient was not conversant, although there is a history of dementia, this was not his baseline mental status per the family. He was given IV Zosyn in the emergency department (ED). He was given IV Zosyn in the emergency department (ED) and placed on nasal cannula oxygen supplementation. The patient's chest x-ray was concerning for pneumonia and hew as ordered for a CT of the chest. The patient reportedly had desaturation when they attempted to lay him flat for the CT and it was unable to be completed. He was transferred back to floor on a non-breather initially. He was able to be wean down to nasal cannula oxygen. However to continue to have episodes of desaturation, as well as respiratory distress and was transferred to the ICU for further management. In the ICU, the patient appears to be aware and is tracking visually, but is not following commands and is not verbalizing. He does appear to be tachypneic and is using some accessory muscles for respiration. In the ICU, he was also febrile with a temperature of 101.3. PAST MEDICAL AND SURGICAL HISTORY: 1. Hypertension 2. Hyperlipidemia 3. Benign prostatic hypertrophy (BPH) 4. Chronic kidney disease (CKD) 5. Chronic urinary and bowel incontinence 6. History of recurrent urinary tract infection (UTI) 7. Dementia 8. Left hip replacement in 2009 HOME MEDICATIONS: - atenolol - vitamin D - multivitamin - potassium chloride - rosuvastatin - Flomax - torsemide 10 mg daily - albuterol as needed ALLERGIES: KEFLEX. FAMILY HISTORY: Mother with a history of Parkinsonism. Father with a history of lung cancer. SOCIAL HISTORY: The patient reportedly is a current smoker of one pack a day for 60 years. No previous history of alcohol or illicit drug use. 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 PHYSICAL EXAMINATION: Vital signs: Temperature T-max 101.3, pulse 88, respirations 30, blood pressure is 176/89, repeat 115/76, O2 saturation 95% on 3 liters nasal cannula. Input 50 ml, output 250 ml. General: The patient is an elderly man, is lying in bed, is awake, but not following commands and nonverbal. He has some respiratory distress and is using some accessory muscles for respiration particularly with abdominal muscles. HEENT: Normocephalic, atraumatic. There are some dry mucous membranes noted. Neck is supple. Trachea is midline. There is no palpable cervical lymphadenopathy. Cardiac: Regular rate and rhythm, normal S1, S2. Unable to appreciate any murmurs. Pulmonary: There are generalized diminished breath sounds bilaterally with some rhonchi and crackles, more at the right base, then the left. There is also some faint expiratory wheezing noted bilaterally. Abdomen: Soft, nontender, non-distended. No palpable organomegaly. Extremities: There is no lower extremity edema bilaterally. LABORATORY DATA: WBC 12.4, hemoglobin 12.4, platelets are 260. Chemistry: Sodium is 143, potassium is 4.2, chloride is 107, bicarbonate is 29, BUN 28, creatinine is 1.55, glucose is 157, ammonia level is 15, lactic acid is 1.6. Liver function tests within normal limits. Albumin was 3.1. Troponins are negative. Arterial blood gas: Initially pH 7.3, pCO2 of 47.7, pO2 of 55.6. IMAGING DATA: Chest x-ray shows left lower lobe consolidation with questionable effusion. There is also a questionable hazy opacity at the right base. ASSESSMENT AND PLAN: Mr. Crane is an 85-year-old male with history of hypertension, hyperlipidemia, urinary incontinence with a chronic condom catheter and history of frequent urinary tract infections (UTIs), as well as a history of nicotine dependence, who presented with complaints of altered mental status and fever. The patient was also noted to be hypoxic on admission and in some mild respiratory distress. He was also found to have wheezing on examination; and while there is no history of chronic obstructive pulmonary disease (COPD), he does have a longstanding smoking history of more than 60 pack years. The patient's imaging was also consistent with left lower lobe pneumonia. There was possible associated parapneumonic effusion, although at bedside ultrasound in the ICU showed a small amount of effusion and mostly consolidation in the left lower lobe. - The patient was reportedly on antibiotics as an outpatient; and given his cephalosporin allergy, was likely on a fluoroquinolone. He was given IV Zosyn, one dose in the emergency department (ED) and then continued on Levaquin. As he likely has been on fluoroquinolones frequently as an outpatient for his recurrent urinary tract infections (UTIs), would start the patient instead on Zosyn, renally dosed. - Would get sputum culture, as well as urine culture. Would attempt to place an indwelling Mason catheter as he may have some urinary retention and as his condom catheter also appears to be nonfunctioning on his admission. - Will continue with IV steroids and increase to Solu-Medrol IV b.i.d. - Will continue with nebulized bronchodilators with DuoNeb q 6 hours. - Will repeat arterial blood gas. If he has evidence of worsening hypercapnia, then the patient would likely require intubation and mechanical ventilation. As per the patient's family, he is full code. - Will continue to monitor, as the patient may potentially develop worsening parapneumonic effusion and potentially need diagnostic and therapeutic drainage at that time. Currently, he does not appear to have significant effusion per the bedside ultrasound. - Will start the patient with IV fluids give his sepsis with normal saline at 200 cc an hour. Will hold if signs of fluid overload. Will check BNP. Deep venous thrombosis (DVT) prophylaxis, Lovenox. Code Status: Full code. Total critical care time spent, not including procedure approximately 1 hour and 30 minutes. MTDD
[2020-06-01 15:44] LABS: ABG BASE EXCESS 0.4 (-2.0-2.0); ABG HCO3 25.8 MEQ/L (22.0-26.0); ABG O2 SATURATION 97.1 % (95.0-99.0); ABG PARTIAL PRESSURE CO2 44.6 mmHg (35.0-45.0); ABG PARTIAL PRESSURE O2 89.6 mmHg (75.0-100.0); ABG STANDARD HCO3 24.9 MEQ/L (22.0-26.0); ABG TOTAL CO2 27.2 MEQ/L (23.0-31.0)
[2020-06-01] MEDS: ROSUVASTATIN 10 MG TAB (CRESTOR) PO SCH (19:57)
[2020-06-02] VITALS (18 sets, daily range): BP systolic 131–166; BP diastolic 60–79; O2SAT 85–97
[2020-06-02] MEDS: IPRATROPIUM 0.5MG/ALBUTEROL 2.5MG INH SOL UD 3ML (DUONEB) NEB SCH ×4 (02:00→20:58)
[2020-06-02] MEDS: PIPERACILLIN/TAZOBACTAM SOD 3.375 GM in D5W MINI-BAG PLUS 50 ML IV SCH ×6 (05:40→23:57)
[2020-06-02] MEDS: SLF 3 ML SYR IV SCH ×3 (05:40→22:20)
[2020-06-02 06:26] LABS: BASO % 0.1 % (0.0-1.0); HEMATOCRIT 32.2 % (42.0-52.0); HEMOGLOBIN 10.1 g/dl (13.5-17.5); LYMPH # 0.6 10^3/uL (1.5-5.0); LYMPH % 3.9 % (24.0-44.0); MEAN CORPUSCULAR HEMOGLOBIN 30.6 pg (27.0-33.0); MEAN CORPUSCULAR HGB CONC 31.4 g/dl (32.0-36.5); MEAN CORPUSCULAR VOLUME 97.6 fl (80.0-96.0); MONO # 0.6 10^3/uL (0.0-0.8); MONO % 4.4 % (0.0-5.0); NEUTROPHILS # 12.9 10^3/uL (1.5-8.5); NEUTROPHILS % 90.9 % (36.0-66.0); PLATELET COUNT, AUTOMATED 218 10^3/uL (150-450); WHITE BLOOD COUNT 14.2 10^3/uL (4.0-10.0)
[2020-06-02 06:53] LABS: CALCIUM LEVEL 8.4 MG/DL (8.8-10.2); CREATININE FOR GFR 1.33 MG/DL (0.70-1.30); GLOMERULAR FILTRATION RATE 54.3 (>35); POTASSIUM SERUM 3.9 MEQ/L (3.5-5.1)
--- NOTE | 2020-06-02 07:37 | IPN ---
DATE: 06/01/2020 SUBJECTIVE: Malick has done better overnight. He is less wheezy, less short of breath. He seems to be feeling improved. His antibiotic was changed to Zosyn. His O2 saturations have been in the low to mid 90s. PHYSICAL EXAMINATION: 144/80, 92% saturation on 2 liters. General appearance: He is alert, conversant, answers questions appropriately. He has a baseline tremor, which is still present. Lungs: Decreased breath sounds. Wheezes in both lower lung baker. Heart: Regular rate and rhythm. Abdomen: Soft, nontender. Extremities: No peripheral edema. LABORATORY DATA: Creatinine is down to 1.4. Potassium 3.7. White 9.3, hemoglobin 10.9, platelets 211. IMPRESSION: 1. Left-sided pneumonia. Continue with Zosyn, renally dosed. He has recently been on Solu-Medrol 40 mg b.i.d. and nebulized bronchodilator. 2. Anemia. He received a bolus of saline yesterday and I think that accounts for his anemia. Follow up complete blood count (CBC) has been ordered. 3. Hyperlipidemia. Continue his current dose of atorvastatin. 4. Benign prostatic hypertrophy (BPH). Continue his Flomax. 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 [facility]
--- NOTE | 2020-06-02 07:45 | CCN ---
DATE: 06/01/2020 SUBJECTIVE: Yesterday evening the patient was given additional dose of IV Solu- Medrol as well as IV Tylenol for his fever. He defervesced and appeared to be doing with his mental status as well as his respiratory condition. He had an ABG done, repeat, which showed improvement in his hypercapnia as well as in his oxygenation. This morning the patient appears improved in his mental status. He is awake, alert and answering questions appropriately although occasionally confused. He denies any chest pain currently, has not had any shortness of breath or cough that he describes. He has been afebrile overnight now. The patient is still on nasal cannula oxygen but is down to 2 liters a minute. His tachypnea has also improved and he does not appear to be in respiratory disturbance. OBJECTIVE: Vital signs: Temperature 97.8, pulse 81, respirations 22, blood pressure 144/50, O2 saturation 92% on 2 liters nasal cannula. Input not documented with the 2.4 liters that he received yesterday total for IV fluids. His output is documented at approximately 500 mL although he does have increased urine in his Mason bag. General: Elderly male lying in bed, is awake and alert. He does not appear to be using any accessory muscles for respiration currently. HEENT: Normocephalic, atraumatic. Mucous membranes are moist. Pupils are reactive to light. Neck is supple. Trachea is midline. No palpable adenopathy and no JVD appreciated. Cardiac: Regular rate and rhythm, normal S1, S2. No murmurs easily auscultated. Pulmonary: Improved breath sounds bilaterally. There is less wheezing noted and less rhonchi with occasional crackles in the left base with some diminished breath sounds. Abdomen is soft, nontender, nondistended, no palpable hepatomegaly. Extremities: There is no significant lower extremity edema noted bilaterally. The patient does have some tremors noted. LABS: WBC 9.3, hemoglobin 10.9, platelets 211. Chemistries: Sodium is 145, potassium 3.7, chloride 113, bicarb is 25, BUN is 30, creatinine is 1.44, glucose 184. Repeat ABG yesterday evening: A pH of 7.321, pCO2 of 42.5, pO2 173.1. ASSESSMENT AND PLAN: Mr. Crane is an 85-year-old male with a past medical history of hypertension, hyperlipidemia, atrial fibrillation, BPH, chronic kidney disease, history of dementia with chronic urinary and bowel incontinence with a history of frequent UTIs who presented with complaints of altered mental status and lethargy. He had been treated as an outpatient with antibiotics for recurrent UTI but was noted to be more lethargic. He was also febrile on admission and chest x-ray was concerning for new left lower lobe pneumonia. The patient yesterday evening was febrile and was noted to have some respiratory distress with tachypnea and using accessory muscles for respiration. He also has a history of longstanding nicotine use and he did have some wheezing as well as rhonchi on exam. The patient was given IV steroids as well as nebulized bronchodilators and IV Tylenol with improvement. His initial ABG showed mild respiratory acidosis and repeat showed improvement. Acute hypoxemic and hypercarbic respiratory failure in the setting of likely aspiration pneumonia. The patients hypercarbia improved and his hypoxia has improved although he is still on nasal cannula oxygen supplementation. - The patients chest x-ray showed evidence of left lower lobe pneumonia. A CT was ordered but he was unable to tolerate it at the time due to desaturation and respiratory distress. Bedside ultrasound did not show any significant pleural effusion. However, can consider imaging with a CT if he has persistent leukocytosis or recurrent fevers if there is concern for possible peripneumonic effusion that may need drainage. - The patient appears to have defervesced with Tylenol and with continued antibiotics. His antibiotics were brought in yesterday given his history of recurrent UTIs and being on fluoroquinolones frequently as an outpatient. He is currently on Zosyn for likely aspiration pneumonia. Can check procalcitonin to aid in deescalation of antibiotics. - We will continue with Solu-Medrol 40 mg IV twice a day and can likely transition to by mouth steroids in a few days. - The patient was given IV fluids with his sepsis at 30 mL per kg. - His mental status appears improved today and he was able to pass a bedside swallow exam. Would transition his diet not continue with any IV fluids at this time. - Continue with nebulized bronchodilators. - Continue with nasal cannula oxygen supplementation and wean down as tolerated to maintain O2 saturation above 90%. - The patient is on a diuretic as a home medication. He does not appear to be clinically fluid overloaded at this time though would monitor closely and consider restarting his home diuretic if evidence of increased fluid overload. DVT prophylaxis with Lovenox. Code status: FULL CODE. Disposition: The patient can likely be downgraded from the ICU. Total critical care time spent not including procedures approximately 45 minutes. Please do not hesitate to call if any further questions or concerns. MTDD
[2020-06-02] MEDS: ENOXAPARIN 30MG/0.3ML SYRINGE (J1650 PER 10MG) SC SCH (09:34)
[2020-06-02] MEDS: atenoloL 25 MG TAB PO SCH (09:35)
[2020-06-02] MEDS: TAMSULOSIN 0.4 MG CAP PO SCH (09:35)
[2020-06-02] MEDS: methylPREDNISolone 125MG 2ML VIAL IV SCH ×2 (09:35→21:19)
--- NOTE | 2020-06-02 09:58 | ECGEPIP ---
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
[2020-06-02] MEDS: IPRATROPIUM 0.5MG/ALBUTEROL 2.5MG INH SOL UD 3ML (DUONEB) NEB PRN (11:07)
[2020-06-02] MEDS: ROSUVASTATIN 10 MG TAB (CRESTOR) PO SCH (21:19)
[2020-06-03] VITALS (15 sets, daily range): BP systolic 113–182; BP diastolic 64–90; O2SAT 91–99
[2020-06-03] MEDS: IPRATROPIUM 0.5MG/ALBUTEROL 2.5MG INH SOL UD 3ML (DUONEB) NEB SCH ×4 (02:00→20:47)
[2020-06-03] MEDS: IPRATROPIUM 0.5MG/ALBUTEROL 2.5MG INH SOL UD 3ML (DUONEB) NEB PRN (04:52)
[2020-06-03] MEDS: PIPERACILLIN/TAZOBACTAM SOD 3.375 GM in D5W MINI-BAG PLUS 50 ML IV SCH ×3 (06:31→18:26)
[2020-06-03] MEDS: SLF 3 ML SYR IV SCH ×3 (06:31→21:02)
[2020-06-03] MEDS: methylPREDNISolone 125MG 2ML VIAL IV SCH ×2 (08:17→21:02)
[2020-06-03] MEDS: ENOXAPARIN 30MG/0.3ML SYRINGE (J1650 PER 10MG) SC SCH (08:18)
[2020-06-03] MEDS: TAMSULOSIN 0.4 MG CAP PO SCH (08:19)
[2020-06-03] MEDS: atenoloL 25 MG TAB PO SCH (08:19)
--- NOTE | 2020-06-03 08:43 | IPN ---
DATE: 06/02/2020 SUBJECTIVE: Malick is stable. He does not sleep well at night so he is sleepy in the morning on rounds. His oxygen has been titrated down to 0.5 liters. He woke up enough today to tell me he is feeling a little better and less short of breath. PHYSICAL EXAMINATION: VITAL SIGNS: Blood pressure 136/61, pulse is 62, respiratory rate is 18, 92% on 0.5 liters. GENERAL APPEARANCE: Frail elderly male lying in bed. HEENT: Unremarkable. LUNGS: Decreased breath sounds, wheezes at the bases. HEART: Regular rhythm. ABDOMEN: Soft, nontender. EXTREMITIES: No peripheral edema. LABORATORY DATA: White count 14.2, hemoglobin 10, platelets 218. Sodium 139, potassium 3.9, BUN 34, creatinine 1.3, glucose 121. ASSESSMENT: 1. Left sided pneumonia, he is on Zosyn, renally dosed. He is also receiving Solumedrol which I think accounts for his leukocytosis. He is being followed by Pulmonology. I was concerned about parapneumonic effusion, bedside ultrasound did not show significant amounts of fluid. We attempted a CT on the day of admission but decompensated in getting the scan done so it was never completed. At this point, I think his leukocytosis is due to the steroids. He has no fever and clinically he is improving so I do not feel we need to pursue this further at this time. 2. Anemia, stable and chronic. 3. BPH, continue current dose of Flomax. 4. Hyperlipidemia, continue his atorvastatin. We anticipate either discharge or transfer to a rehab level of care in the next few days. HUGOD
[2020-06-03 09:08] LABS: BASO % 0.1 % (0.0-1.0); HEMATOCRIT 35.3 % (42.0-52.0); HEMOGLOBIN 11.1 g/dl (13.5-17.5); LYMPH # 0.7 10^3/uL (1.5-5.0); LYMPH % 4.7 % (24.0-44.0); MEAN CORPUSCULAR HEMOGLOBIN 30.3 pg (27.0-33.0); MEAN CORPUSCULAR HGB CONC 31.4 g/dl (32.0-36.5); MEAN CORPUSCULAR VOLUME 96.4 fl (80.0-96.0); MONO # 0.8 10^3/uL (0.0-0.8); MONO % 5.5 % (0.0-5.0); NEUTROPHILS # 12.8 10^3/uL (1.5-8.5); NEUTROPHILS % 89.1 % (36.0-66.0); PLATELET COUNT, AUTOMATED 255 10^3/uL (150-450); RED BLOOD COUNT 3.66 10^6/uL (4.30-6.10); WHITE BLOOD COUNT 14.4 10^3/uL (4.0-10.0)
[2020-06-03 09:32] LABS: CALCIUM LEVEL 8.3 MG/DL (8.8-10.2); CREATININE FOR GFR 1.37 MG/DL (0.70-1.30); GLOMERULAR FILTRATION RATE 52.4 (>35); POTASSIUM SERUM 4.1 MEQ/L (3.5-5.1)
--- NOTE | 2020-06-03 17:11 | IPNPDOC ---
Date Seen The patient was seen on 06/03/20. Progress Note SUBJECTIVE: Increased wheezing this AM, increased steroids. He states to feel improved despite the wheezing. Per PT, total assist. Denies chest pain, shortness of breath, n/v/d. PHYSICAL EXAMINATION: VITAL SIGNS: Please see below GENERAL APPEARANCE: Frail elderly male lying in bed. HEENT: Unremarkable. LUNGS: Decreased breath sounds, incr wheezes bilaterally. No rhonchi, rales. HEART: Murmur appreciated, S1S2 +. No rubs or gallops. ABDOMEN: Soft, nontender. BS + in 4 quadrants. No organomegaly. EXTREMITIES: No peripheral edema, swelling. ROM not tested LABORATORY/MICROBIOLOGY Blood cultures x 2 sets NG thus far Please see below ASSESSMENT/PLAN: #Left side community acquired pneumonia. -WBC elevated; however, believed to be steroid induced leukocytosis -No sputum sample obtained but ordered -BCx NG thus far -Pulmonary assessed: steroids BID, zosyn. Please refer to consult note -C/w zosyn, incr steroids at 60 mg IV BID, duonebs ATC, albuterol PRN #Increased wheezing, possibly COPD exacerbation. -No official diagnosis of COPD but strong smoking history, incr wheezing today -Remains 93% on 2 L NC, home amount -C/w treatment above -If worsens, ABG, CT chest if able #Physical deconditioning likely acute on chronic -Per PT: total assist currently and would benefit from continued services -Discussed briefly with patient today -Will C/w PT while inpatient # Anemia, chronic. -H/H stable -No s/s of bleeding #HTN -Increased today, possibly 2/2 to steroids increasing? -No s/s of fluid overload; however. -Monitor closely, will adjust meds. #BPH -Flomax. # Hyperlipidemia -Atorvastatin. #DVT px -Enoxaparin DISPOSITION: C/w current treatment above. Plan is likely rehab vs. home with how much assistance he is requiring currently. Will discuss with PT, PFS. VS, I&O, 24H, Fishbone Vital Signs/I&O Vital Signs Date Time Temp Pulse Resp B/P (MAP) Pulse Ox O2 Delivery O2 Flow Rate FiO2 06/03/20 12:00 97.4 67 19 170/64 (99) 93 Nasal Cannula 2.0 I&O- Last 24 Hours up to 6 AM 06/03/20 05:59 Intake Total 470 ml Output Total 650 ml Balance -180 ml Laboratory Data 24H LABS Laboratory Tests 2 06/03/20 08:46: Immature Granulocyte % (Auto) 0.6, Neutrophils (%) (Auto) 89.1H, Lymphocytes (%) (Auto) 4.7L, Monocytes (%) (Auto) 5.5H, Eosinophils (%) (Auto) 0.0, Basophils (%) (Auto) 0.1, Neutrophils # (Auto) 12.8H, Lymphocytes # (Auto) 0.7L, Monocytes # (Auto) 0.8, Eosinophils # (Auto) 0.0, Basophils # (Auto) 0.0, Nucleated Red Blood Cells % (auto) 0.0, Anion Gap 5L, Glomerular Filtration Rate 52.4, Calcium Level 8.3L CBC/BMP Laboratory Tests 06/03/20 08:46 Microbiology Microbiology 05/31/20 Urine Culture - Final, Complete 05/31/20 Blood Culture - Preliminary, Resulted No Growth after 72 hours. All specime... 05/31/20 Blood Culture - Preliminary, Resulted No Growth after 72 hours. All specime... Current Medications Current Medications Medications (Trade) Dose Ordered Sig/Halley Route PRN Reason Start Time Stop Time Status Last Admin Dose Admin Albuterol/ Ipratropium (Duoneb (Ipr 0.5mg/Alb 2.5mg)) 3 ml Q2HP PRN NEB SOB/WHEEZING 05/31/20 13:30 06/03/20 04:52 Albuterol/ Ipratropium (Duoneb (Ipr 0.5mg/Alb 2.5mg)) 3 ml RQ6H NEB 05/31/20 14:00 06/03/20 13:51 Atenolol (Tenormin) 25 mg DAILY PO 05/31/20 09:00 06/03/20 08:19 Enoxaparin Sodium (Lovenox) 30 mg DAILY SC 05/31/20 09:00 06/03/20 08:18 Home Med (Med Rec Complete!) ASDIRECTED XX 05/31/20 12:15 05/31/20 12:10 DC Levofloxacin 250 mg/IV Miscellaneous Supplies 50 ml @ 50 mls/hr Q24H IV 06/01/20 14:00 05/31/20 16:56 DC Methylprednisolone (SOLUmedrol) 40 mg BID IV 05/31/20 21:00 06/03/20 10:40 DC 06/03/20 08:17 Methylprednisolone (SOLUmedrol) 40 mg DAILY IV 05/31/20 13:30 05/31/20 17:09 DC 05/31/20 17:00 Methylprednisolone (SOLUmedrol) 60 mg BID IV 06/03/20 21:00 Piperacillin Sod/ Tazobactam Sod 3.375 gm/Dextrose 50 ml @ 50 mls/hr Q6H IV 05/31/20 18:00 06/03/20 12:22 Rosuvastatin Calcium (Crestor) 40 mg QHS PO 05/31/20 21:00 06/02/20 21:19 Sodium Chloride (Nacl 0.9%) 2,400 ml BOLUS STAT IV 05/31/20 16:10 05/31/20 16:13 DC 05/31/20 16:50 Sodium Chloride (Saline Lock Flush) 2 ml ASDIRECTED PRN IV SEE LABEL COMMENTS 06/01/20 11:30 Sodium Chloride (Saline Lock Flush) 2 ml SLF IV 06/01/20 14:00 06/03/20 14:11 Tamsulosin HCl (Flomax) 0.4 mg DAILY PO 05/31/20 09:00 06/03/20 08:19 Allergies Coded Allergies: cephalexin (Verified Allergy, Intermediate, rash/hives, 08/13/19) Nanette Mclain MD Jun 03, 2020 17:11
[2020-06-03] MEDS: ROSUVASTATIN 10 MG TAB (CRESTOR) PO SCH (21:02)
[2020-06-04] VITALS (23 sets, daily range): BP systolic 156–172; BP diastolic 68–74; O2SAT 90–96
[2020-06-04] MEDS: PIPERACILLIN/TAZOBACTAM SOD 3.375 GM in D5W MINI-BAG PLUS 50 ML IV SCH ×4 (01:03→17:05)
[2020-06-04] MEDS: IPRATROPIUM 0.5MG/ALBUTEROL 2.5MG INH SOL UD 3ML (DUONEB) NEB SCH ×4 (02:00→19:10)
[2020-06-04 06:09] LABS: HEMATOCRIT 33.8 % (42.0-52.0); HEMOGLOBIN 10.4 g/dl (13.5-17.5); LYMPH # 0.6 10^3/uL (1.5-5.0); LYMPH % 5.6 % (24.0-44.0); MEAN CORPUSCULAR HEMOGLOBIN 29.7 pg (27.0-33.0); MEAN CORPUSCULAR HGB CONC 30.8 g/dl (32.0-36.5); MEAN CORPUSCULAR VOLUME 96.6 fl (80.0-96.0); MONO # 0.5 10^3/uL (0.0-0.8); NEUTROPHILS # 9.6 10^3/uL (1.5-8.5); NEUTROPHILS % 88.4 % (36.0-66.0); PLATELET COUNT, AUTOMATED 254 10^3/uL (150-450); WHITE BLOOD COUNT 10.9 10^3/uL (4.0-10.0)
[2020-06-04] MEDS: SLF 3 ML SYR IV SCH ×3 (06:13→22:08)
[2020-06-04 06:31] LABS: CALCIUM LEVEL 8.3 MG/DL (8.8-10.2); CREATININE FOR GFR 1.22 MG/DL (0.70-1.30); POTASSIUM SERUM 4.4 MEQ/L (3.5-5.1)
[2020-06-04] MEDS: methylPREDNISolone 125MG 2ML VIAL IV SCH (07:51)
[2020-06-04] MEDS: TAMSULOSIN 0.4 MG CAP PO SCH (07:52)
[2020-06-04] MEDS: ENOXAPARIN 30MG/0.3ML SYRINGE (J1650 PER 10MG) SC SCH (07:52)
[2020-06-04] MEDS: atenoloL 25 MG TAB PO SCH (07:52)
[2020-06-04] MEDS ORDERED: TORSEMIDE 10 MG TABLET PO SCH (15:15)
--- NOTE | 2020-06-04 15:18 | IPNPDOC ---
Date Seen The patient was seen on 06/04/20. Progress Note SUBJECTIVE: Improved wheezing this AM, will decrease steroids today. Per PT- improving slowly and may be able to do home PT based on how well he did on 06/03/20. Denies chest pain, shortness of breath, n/v/d. PHYSICAL EXAMINATION: VITAL SIGNS: Please see below GENERAL APPEARANCE: NAD, laying in bed. AAOx3 HEENT: Unremarkable. LUNGS: Decreased breath sounds, incr wheezes bilaterally. No rhonchi, rales. HEART: Murmur appreciated, S1S2 +. No rubs or gallops. ABDOMEN: Soft, nontender. BS + in 4 quadrants. No organomegaly. EXTREMITIES: No peripheral edema, swelling. ROM not tested LABORATORY/MICROBIOLOGY Blood cultures x 2 sets NG thus far Please see below ASSESSMENT/PLAN: #Left side community acquired pneumonia. -WBC elevated; however, believed to be steroid induced leukocytosis -No sputum sample obtained but ordered -BCx NG thus far -Pulmonary assessed: steroids BID, zosyn. Please refer to consult note -C/w zosyn day 5, decreased steroids to 60 mg IV daily, duonebs ATC, albuterol PRN #Increased wheezing, possibly COPD exacerbation. -No official diagnosis of COPD but strong smoking history, incr wheezing today -95% on 2 L NC, home amount -C/w treatment above -If worsens, ABG, CT chest if able #Physical deconditioning likely acute on chronic -Per PT: improved on 06/03/20, min assist. may be able to go home with services as he has [facility] home plan -Discussed briefly with patient today. Will call -Will c/w PT while inpatient # Anemia, chronic. -H/H stable -No s/s of bleeding #HTN -BP elevated -Restarting home torsemide -No s/s of fluid overload; however. -Monitor closely #BPH -Flomax. # Hyperlipidemia -Atorvastatin. #DVT px -Enoxaparin DISPOSITION: C/w current treatment above. Plan is likely home with services if he continues to improve. Will update his today. VS, I&O, 24H, Fishbone Vital Signs/I&O Vital Signs Date Time Temp Pulse Resp B/P (MAP) Pulse Ox O2 Delivery O2 Flow Rate FiO2 06/04/20 13:00 92 Nasal Cannula 1.0 06/04/20 11:56 96.9 59 18 172/68 (102) I&O- Last 24 Hours up to 6 AM 06/04/20 06:00 Intake Total 610 ml Output Total 1450 ml Balance -840 ml Laboratory Data 24H LABS Laboratory Tests 2 06/04/20 05:34: Immature Granulocyte % (Auto) 1.0, Neutrophils (%) (Auto) 88.4H, Lymphocytes (%) (Auto) 5.6L, Monocytes (%) (Auto) 5.0, Eosinophils (%) (Auto) 0.0, Basophils (%) (Auto) 0.0, Neutrophils # (Auto) 9.6H, Lymphocytes # (Auto) 0.6L, Monocytes # (Auto) 0.5, Eosinophils # (Auto) 0.0, Basophils # (Auto) 0.0, Nucleated Red Blood Cells % (auto) 0.0, Anion Gap 5L, Glomerular Filtration Rate 60.0, Calcium Level 8.3L CBC/BMP Laboratory Tests 06/04/20 05:34 Microbiology Microbiology 05/31/20 Urine Culture - Final, Complete 05/31/20 Blood Culture - Preliminary, Resulted No Growth after 72 hours. All specime... 05/31/20 Blood Culture - Preliminary, Resulted No Growth after 72 hours. All specime... Current Medications Current Medications Medications (Trade) Dose Ordered Sig/Halley Route PRN Reason Start Time Stop Time Status Last Admin Dose Admin Albuterol/ Ipratropium (Duoneb (Ipr 0.5mg/Alb 2.5mg)) 3 ml Q2HP PRN NEB SOB/WHEEZING 05/31/20 13:30 06/03/20 04:52 Albuterol/ Ipratropium (Duoneb (Ipr 0.5mg/Alb 2.5mg)) 3 ml RQ6H NEB 05/31/20 14:00 06/04/20 13:13 Atenolol (Tenormin) 25 mg DAILY PO 05/31/20 09:00 06/04/20 07:52 Enoxaparin Sodium (Lovenox) 30 mg DAILY SC 05/31/20 09:00 06/04/20 07:52 Home Med (Med Rec Complete!) ASDIRECTED XX 05/31/20 12:15 05/31/20 12:10 DC Levofloxacin 250 mg/IV Miscellaneous Supplies 50 ml @ 50 mls/hr Q24H IV 06/01/20 14:00 05/31/20 16:56 DC Methylprednisolone (SOLUmedrol) 40 mg BID IV 05/31/20 21:00 06/03/20 10:40 DC 06/03/20 08:17 Methylprednisolone (SOLUmedrol) 40 mg DAILY IV 05/31/20 13:30 05/31/20 17:09 DC 05/31/20 17:00 Methylprednisolone (SOLUmedrol) 60 mg BID IV 06/03/20 21:00 06/04/20 07:51 Piperacillin Sod/ Tazobactam Sod 3.375 gm/Dextrose 50 ml @ 50 mls/hr Q6H IV 05/31/20 18:00 06/04/20 11:25 Rosuvastatin Calcium (Crestor) 40 mg QHS PO 05/31/20 21:00 06/03/20 21:02 Sodium Chloride (Nacl 0.9%) 2,400 ml BOLUS STAT IV 05/31/20 16:10 05/31/20 16:13 DC 05/31/20 16:50 Sodium Chloride (Saline Lock Flush) 2 ml ASDIRECTED PRN IV SEE LABEL COMMENTS 06/01/20 11:30 Sodium Chloride (Saline Lock Flush) 2 ml SLF IV 06/01/20 14:00 06/04/20 11:25 Tamsulosin HCl (Flomax) 0.4 mg DAILY PO 05/31/20 09:00 06/04/20 07:52 Allergies Coded Allergies: cephalexin (Verified Allergy, Intermediate, rash/hives, 08/13/19) Nanette Mclain MD Jun 04, 2020 15:18
[2020-06-04] MEDS: ROSUVASTATIN 10 MG TAB (CRESTOR) PO SCH (20:12)
[2020-06-05] VITALS: BP_SYST 164; BP_SYST 194; BP_DIAS 78
[2020-06-05] MEDS: IPRATROPIUM 0.5MG/ALBUTEROL 2.5MG INH SOL UD 3ML (DUONEB) NEB SCH ×3 (01:10→13:30)
[2020-06-05] MEDS: PIPERACILLIN/TAZOBACTAM SOD 3.375 GM in D5W MINI-BAG PLUS 50 ML IV SCH ×3 (01:12→12:16)
[2020-06-05 04:00] VITALS: BP 145/80
[2020-06-05] MEDS: IPRATROPIUM 0.5MG/ALBUTEROL 2.5MG INH SOL UD 3ML (DUONEB) NEB PRN (05:44)
[2020-06-05] MEDS: SLF 3 ML SYR IV SCH ×2 (06:30→14:22)
[2020-06-05 08:00] VITALS: BP 148/80
[2020-06-05] MEDS ORDERED: methylPREDNISolone 125MG 2ML VIAL IV SCH (09:00)
[2020-06-05] MEDS: atenoloL 25 MG TAB PO SCH (09:47)
[2020-06-05] MEDS: ENOXAPARIN 30MG/0.3ML SYRINGE (J1650 PER 10MG) SC SCH (09:48)
[2020-06-05] MEDS: TAMSULOSIN 0.4 MG CAP PO SCH (09:48)
[2020-06-05 10:02] LABS: BASO % 0.1 % (0.0-1.0); EOS # 0.1 10^3/uL (0.0-0.5); EOS % 0.6 % (0.0-3.0); HEMATOCRIT 37.3 % (42.0-52.0); HEMOGLOBIN 11.9 g/dl (13.5-17.5); LYMPH # 1.5 10^3/uL (1.5-5.0); LYMPH % 9.5 % (24.0-44.0); MEAN CORPUSCULAR HEMOGLOBIN 30.4 pg (27.0-33.0); MEAN CORPUSCULAR HGB CONC 31.9 g/dl (32.0-36.5); MEAN CORPUSCULAR VOLUME 95.4 fl (80.0-96.0); MONO # 1.6 10^3/uL (0.0-0.8); NEUTROPHILS # 12.3 10^3/uL (1.5-8.5); NEUTROPHILS % 78.1 % (36.0-66.0); PLATELET COUNT, AUTOMATED 280 10^3/uL (150-450); RED BLOOD COUNT 3.91 10^6/uL (4.30-6.10); WHITE BLOOD COUNT 15.8 10^3/uL (4.0-10.0)
[2020-06-05] MEDS ORDERED: LEVO500T3 PO (10:07)
[2020-06-05] MEDS ORDERED: PRED20TA PO (10:09)
[2020-06-05 10:24] LABS: CALCIUM LEVEL 8.6 MG/DL (8.8-10.2); CREATININE FOR GFR 1.33 MG/DL (0.70-1.30); GLOMERULAR FILTRATION RATE 54.3 (>35); POTASSIUM SERUM 3.9 MEQ/L (3.5-5.1)
[2020-06-05 12:00] VITALS: BP 135/74
--- NOTE | 2020-06-05 15:31 | DS.PDOC ---
Discharge Summary General Date of Admission May 31, 2020 at 13:25 Date of Discharge 06/05/20 Attending Physician: Nanette Mclain MD Discharge Summary HISTORY OF PRESENT ILLNESS: Patient is an 85 y/o M with PMH of HLD, Vit D deficiency, HTN, BPH who was admitted on 05/31/20 with new left-sided pneumonia, altered mental status and with sepsis secondary to his infection. He has a history of recurrent urinary tract infections and currently, under treatment for a Klebsiella urinaryi nfection diagnosed 05/22/2020. Previously to that, he had an E. coli UTI 04/17/2020 and 08/13/2019. He was admitted in July for this. He has chronic kidney disease stage III and is followed by Dr. Conde of the nephrology group. He has chronic urinary and bowel incontinence, wears a condom catheter. HOSPITAL COURSE: Patient was treated in the ICU for a period of time after admission, Dr. Amato pulmonary was consulted and followed. There was possible associated parapneumonic effusion, although at bedside ultrasound in the ICU showed a small amount of effusion and mostly consolidationin the left lower lobe. Patient with treatment with IV abx, improved and was downgraded to PCU. He was continued on IV zosyn and steroids were increased for 24 hours while in PCU for increased wheezing. According to his life partner, he is always a bit wheezy, especially in the AM and when laying flat. The patient rec[facility] and was adamant about being discharged home with services when able. PT evaluated him and found that, as long as services were reinstated, he would be ok to be discharged home. On 06/05/20, patient was discharged home with levofloxacin, steroid taper to continue. He will need close follow up with PCP and it is recommended for him to have pulmonary referral for PFTs. At the time of discharge, he was minimally wheezing but off O2, 95% on RA. He is continued on his home inhalers and nebulizer regimen as well. He denied chest pain, n/v/d, incr shortness of breath, fevers or chills. OTHER PAST MEDICAL HISTORY: 1. Hypertension 2. Hyperlipidemia 3. Benign prostatic hypertrophy (BPH) 4. Chronic kidney disease (CKD) 5. Chronic urinary and bowel incontinence 6. History of recurrent urinary tract infection (UTI) 7. Dementia 8. Left hip replacement in 2009 PAST SURGICAL HISTORY: Left hip replacement 2009. ALLERGIES: KEFLEX CAUSED A RASH. FAMILY HISTORY: Mother with Parkinson's disease and father lung cancer. SOCIAL HISTORY: reportedly is a current smoker of one pack a day for 60 years. No previous history of alcohol or illicit drug use. 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 ADVANCED DIRECTIVES: He has a health care proxy, but has not filled out a MOLST form. He has a [facility] nurse who comes to his home to see him. I do not think he has been seen by a physician in a while. DISCHARGE MEDICATIONS: Please see below. PHYSICAL EXAMINATION: VITAL SIGNS: Please see below GENERAL APPEARANCE: NAD, laying in bed. AAOx3 HEENT: Unremarkable. LUNGS: Decreased breath sounds, incr wheezes bilaterally. No rhonchi, rales. HEART: Murmur appreciated, S1S2 +. No rubs or gallops. ABDOMEN: Soft, nontender. BS + in 4 quadrants. No organomegaly. EXTREMITIES: No peripheral edema, swelling. ROM not tested LABORATORY/MICROBIOLOGY Blood cultures x 2 sets NG thus far Please see below ASSESSMENT/PLAN: #Left side community acquired pneumonia. -WBC elevated; however, believed to be steroid induced leukocytosis -No sputum sample obtained but ordered -BCx NG thus far -Pulmonary assessedthis admission -Discharged home with PO levofloxacin, steroid taper and needing close f/u with PCP, home inhaler and nebulizer regimen #Increased wheezing, possibly COPD exacerbation. -No official diagnosis of COPD but strong smoking history, incr wheezing today -93% on RA, not on home O2. -C/w treatment above -Recommend pulmonary o/p referral #Physical deconditioning likely acute on chronic -Per PT: improved on 06/03/20, min assist. may be able to go home with services as he has [facility] home [facility] -Discussed briefly with patient today and life partner # Anemia, chronic. -H/H stable -No s/s of bleeding #HTN -BP elevated -Restarting home torsemide -No s/s of fluid overload; however. -Monitor closely #BPH -Flomax. # Hyperlipidemia -Atorvastatin. DISPOSITION: Discharged home today with reinstating home [facility] services. F/u with PCP after discharge, encourage pulmonary referral TIME SPENT ON DISCHARGE: Greater than 30 minutes. Vital Signs/I&Os Vital Signs Date Time Temp Pulse Resp B/P (MAP) Pulse Ox O2 Delivery O2 Flow Rate FiO2 06/05/20 12:00 97.3 65 20 135/74 (94) 92 Nasal Cannula 1.0 I&O- Last 24 Hours up to 6 AM 06/05/20 06:00 Intake Total 1340 ml Output Total 2050 ml Balance -710 ml Laboratory Data Labs 24H Laboratory Tests 2 06/05/20 09:49: Immature Granulocyte % (Auto) 1.7, Neutrophils (%) (Auto) 78.1H, Lymphocytes (%) (Auto) 9.5L, Monocytes (%) (Auto) 10.0H, Eosinophils (%) (Auto) 0.6, Basophils (%) (Auto) 0.1, Neutrophils # (Auto) 12.3H, Lymphocytes # (Auto) 1.5, Monocytes # (Auto) 1.6H, Eosinophils # (Auto) 0.1, Basophils # (Auto) 0.0, Nucleated Red Blood Cells % (auto) 0.0, Anion Gap 6L, Glomerular Filtration Rate 54.3, Calcium Level 8.6L CBC/BMP Laboratory Tests 06/05/20 09:49 Microbiology Microbiology 05/31/20 Urine Culture - Final, Complete 05/31/20 Blood Culture - Final, Complete NO GROWTH AFTER 5 DAYS 05/31/20 Blood Culture - Final, Complete NO GROWTH AFTER 5 DAYS Discharge Medications Scheduled Acetaminophen (Acetaminophen) 325 Mg Tablet, 650 MG PO BID, (Reported) Atenolol (Atenolol) 25 Mg Tablet, 25 MG PO DAILY, (Reported) Ergocalciferol (Vitamin D2) (Vitamin D2) 50,000 Units Cap, 50,000 UNITS PO QMONTH, (Reported) 1st OF THE MONTH Ferrous Sulfate (Ferrous Sulfate) 324 Mg Tablet.dr, 324 MG PO QHS, (Reported) Levofloxacin (Levofloxacin) 500 Mg Tablet, 500 MG PO DAILY Melatonin (Melatonin) 3 Mg Tablet, 3 MG PO QHS, (Reported) Nitrofurantoin Monohyd/M-Cryst (Nitrofurantoin [place]-Mcr 100 mg) 100 Mg Capsule, 100 MG PO BID, (Reported) STARTED 05/26. 10 DAYS BID, THEN DAILY FOR 20 DAYS Potassium Chloride (Potassium Chloride) 10 Meq Capsule.er, 10 MEQ PO DAILY, (Reported) Prednisone (Prednisone) 20 Mg Tablet, 60 MG PO DAILY Prednisone taper over 10 days: 60 mg Po x 4 days, 40 mg Po x 4 days, 20 mg PO x 2 days Rosuvastatin Calcium (Rosuvastatin Calcium) 40 Mg Tablet, 40 MG PO QHS, (Reported) Tamsulosin HCl (Flomax) 0.4 Mg Cap, 0.4 MG PO DAILY, (Reported) Torsemide (Torsemide) 10 Mg Tablet, 10 MG PO Q2D, (Reported) Scheduled PRN Albuterol Sulf (Albuterol Sulfate) 2.5 Mg/3 Ml Vial.neb, 1 VIAL NEB Q4H PRN for SOB/WHEEZING, (Reported) Albuterol Sulfate (Proair Hfa) 8.5 Gm Hfa.aer.ad, 2 PUFF INH Q4H PRN for SHORTNESS OF BREATH, (Reported) Allergies Coded Allergies: cephalexin (Verified Allergy, Intermediate, rash/hives, 08/13/19) Nanette Mclain MD Jun 05, 2020 15:31
[2020-06-05 16:00] VITALS: BP 152/82
== END 2020-06-05 17:39 | disposition home health service (06) | DRG 871 ==
LOC: M ED 10:30 → EDBD 10:30 → M ED INP 13:25 → ENRESERV 13:49 → M MSPAV 15:02 → M ICU 15:34 → M PCU 06-01 11:09
PROVIDERS: ADMIT Internal Medicine; ATTEND Internal Medicine
DX: A41.9 Sepsis, unspecified organism (principal); J96.01 Acute respiratory failure with hypoxia; J96.02 Acute respiratory failure with hypercapnia; J18.9 Pneumonia, unspecified organism; N17.9 Acute kidney failure, unspecified; E87.2 Acidosis; J44.1 Chronic obstructive pulmonary disease with (acute) exacerbation; E78.5 Hyperlipidemia, unspecified; I13.10 Hypertensive heart and chronic kidney disease without heart failure, with stage 1 through stage 4 chronic kidney disease, or unspecified chronic kidney disease; N40.1 Benign prostatic hyperplasia with lower urinary tract symptoms; N18.30 Chronic kidney disease, stage 3 unspecified; R32 Unspecified urinary incontinence; F03.90 Unspecified dementia, unspecified severity, without behavioral disturbance, psychotic disturbance, mood disturbance, and anxiety; R15.9 Full incontinence of feces; R41.82 Altered mental status, unspecified; R33.9 Retention of urine, unspecified; F17.200 Nicotine dependence, unspecified, uncomplicated; Z79.899 Other long term (current) drug therapy; Z88.1 Allergy status to other antibiotic agents; Z20.828 Contact with and (suspected) exposure to other viral communicable diseases; Z96.642 Presence of left artificial hip joint; Z87.440 Personal history of urinary (tract) infections

== ENCOUNTER 2020-10-25 11:36 | Inpatient (IN) | payer MEDICARE ==
[~2020-10-25] VITALS: Ht 175.3 cm; Wt 81.2 kg
[~2020-10-25 11:36] MED LIST changes: +ACET1TAB55 PO; +ALBU83IN NEB; +FERR324T2 PO; +LEVO500T3 PO; +MELA3TAB29 PO; +NITR100C2 PO; +POTA10CA32 PO; +PRED20TA PO
[2020-10-25 12:11] LABS: VENOUS PH 7.334 UNITS (7.330-7.430)
[2020-10-25 12:12] LABS: VENOUS BASE EXCESS 4.8 (-2.0-2.0); VENOUS HCO3 32.2 MEQ/L (23.0-27.0); VENOUS O2 SATURATION 64.8 % (60.0-80.0); VENOUS PARTIAL PRESSURE CO2 61.9 mmHg (38.0-50.0); VENOUS STANDARD HCO3 28.1 MEQ/L; VENOUS TOTAL CO2 34.1 MEQ/L (24.0-28.0)
--- NOTE | 2020-10-25 12:12 | REP ---
INDICATION: Altered Mental Status. COMPARISON: 08/13/2019. TECHNIQUE: CT BRAIN PERFORMED IN THE AXIAL PLANE. CORONAL RECONSTRUCTION IMAGES ARE PERFORMED. FINDINGS: There is moderate atrophy again noted with stable chronic bilateral periventricular small vessel ischemic changes in the white matter. There is no acute intracranial hemorrhage or extra-axial fluid collection. There is no midline shift or mass effect. Vascular calcifications are seen in the carotid siphons. There is no evidence of a skull fracture. Mastoid air cells are clear. There is moderate mucosal thickening in the frontoethmoidal regions extending into the left frontal sinus. There is trace mucosal thickening in the posterior left sphenoid sinus. IMPRESSION: Chronic changes as above. No acute intracranial hemorrhage, midline shift or mass effect. Moderate mucosal thickening in the sinuses. <Electronically signed by Florencio Julio > 10/25/20 [id number]
[2020-10-25 12:15] LABS: BASO # 0.1 10^3/uL (0.0-0.2); BASO % 0.5 % (0.0-1.0); EOS # 0.4 10^3/uL (0.0-0.5); EOS % 4.1 % (0.0-3.0); HEMATOCRIT 36.1 % (42.0-52.0); HEMOGLOBIN 11.1 g/dl (13.5-17.5); LYMPH # 1.1 10^3/uL (1.5-5.0); LYMPH % 10.6 % (24.0-44.0); MEAN CORPUSCULAR HEMOGLOBIN 29.9 pg (27.0-33.0); MEAN CORPUSCULAR HGB CONC 30.7 g/dl (32.0-36.5); MEAN CORPUSCULAR VOLUME 97.3 fl (80.0-96.0); MONO # 0.8 10^3/uL (0.0-0.8); MONO % 8.2 % (2.0-8.0); NEUTROPHILS # 7.6 10^3/uL (1.5-8.5); NEUTROPHILS % 76.2 % (36.0-66.0); PLATELET COUNT, AUTOMATED 322 10^3/uL (150-450); RED BLOOD COUNT 3.71 10^6/uL (4.30-6.10)
--- NOTE | 2020-10-25 12:41 | REP ---
INDICATION: Altered Mental Status. COMPARISON: 05/31/2020. TECHNIQUE: SINGLE PORTABLE AP VIEW OF THE CHEST WAS PERFORMED. FINDINGS: Left pleural effusion and adjacent left lung atelectasis/infiltrate has increased since the prior study. Right lung is clear. Heart size is not well evaluated. Mediastinum appears unchanged. There are degenerative changes of the spine. IMPRESSION: Left pleural effusion and adjacent left lung atelectasis/infiltrate has increased since prior study. <Electronically signed by Florencio Julio > 10/25/20 [id number]
[2020-10-25 13:03] LABS: ALBUMIN 2.8 GM/DL (3.2-5.2); ALT/SGPT 28 U/L (12-78); BILIRUBIN,DIRECT < 0.1 MG/DL (0.0-0.2); BILIRUBIN,TOTAL 0.3 MG/DL (0.2-1.0); BLOOD UREA NITROGEN 26 MG/DL (7-18); CALCIUM LEVEL 8.9 MG/DL (8.8-10.2); CARBON DIOXIDE LEVEL 33 MEQ/L (21-32); CHLORIDE LEVEL 107 MEQ/L (98-107); CPK CREATINE PHOSPHOKINASE 121 U/L (39-308); CREATININE FOR GFR 1.05 MG/DL (0.70-1.30); GLOMERULAR FILTRATION RATE > 60.0 (>35); GLUCOSE, FASTING 112 MG/DL (70-100); MB/CK RELATIVE INDEX 2.48 (< OR =4); NT-PRO BNP 907 PG/ML (<450); POTASSIUM SERUM 3.7 MEQ/L (3.5-5.1); SODIUM LEVEL 143 MEQ/L (136-145); TOTAL PROTEIN 6.6 GM/DL (6.4-8.2); TROPONIN I 0.06 NG/ML (< 0.10)
[2020-10-25 13:22] LABS: RSV AMPLIFICATION NEGATIVE (NEGATIVE)
[2020-10-25 13:25] LABS: AMPHETAMINES LEVEL URINE NEGATIVE (NEGATIVE); BARBITURATES URINE NEGATIVE (NEGATIVE); BENZODIAZEPINES URINE POSITIVE (NEGATIVE); CANNABINOIDS URINE NEGATIVE (NEGATIVE); COCAINE METABOLITE URINE NEGATIVE (NEGATIVE); METHADONE URINE NEGATIVE (NEGATIVE); OPIATES URINE NEGATIVE (NEGATIVE); PHENCYCLIDINE URINE NEGATIVE (NEGATIVE)
[2020-10-25] MEDS ORDERED: FLUTISP NARES (14:20)
[2020-10-25] MEDS ORDERED: PROBCAP14 PO (14:20)
[2020-10-25] MEDS ORDERED: SERT50TA29 PO (14:20)
[2020-10-25] MEDS ORDERED: ALBUTEROL SULFATE 2.5 MG/0.5 ML INH NEB SOLN NEB PRN (15:00)
--- NOTE | 2020-10-25 15:48 | HPEPDOC ---
General Date of Admission Oct 25, 2020 at 14:53 Date of Service: Oct 25, 2020 Chief Complaint The patient is a 85-year-old male admitted with a reason for visit of Altered Mental Status. Source: Patient, Family Exam Limitations: Dementia History of Present Illness Mr. Crane is a 85 year old male with hypertension, hypolipidemia, and urine and bowel incontinence who presents to the ED with increasing lethargy. Patient is a poor historian and a dementia clinic is working him up for Lewy body dementia. Most of the history was obtained from his significant other of 21 years, Charla Daniels. He has not been doing well for the past few weeks. Initially he was wheezy and [facility]. His Macrobid which he takes chronically since May 2020 for recurring UTI was stopped. He did better after the 5 days of doxycycline and prednisone, and was almost back to normal self. He was restarted on Macrobid and he started to decline again. His appetite was poor, and he became more lethargic and weak. On October 16, his tongue s tarted to turn black and hairy. It was thought to be either from Macrobid or oral candidiasis. He was noted to walk on the tips of the right foot. He turned white and sweaty two times this week. Yesterday he had 3 large volume diarrhea. This morning, he was more lethargic than normal and his significant other called EMS to bring him to the ED While in the ED, UA was negative for infection, CT head was negative for acute processes, and there was no leukocytosis or fever. CXR in May demonstrated left pleural effusion, but a bed side ultrasound did not show significant effusion. His current CXR also demonstrates left pleural effusion and left infiltrate. Otherwise, his UA demonstrates benzodiazepine. Significant other says he does not take benzodiazepine and he does not have these medications on his list. Patient will be admitted for AMS. This may be secondary to pneumonia vs benzodiazepine Home Medications Scheduled Acetaminophen (Acetaminophen) 325 Mg Tablet, 650 MG PO BID, (Reported) Atenolol (Atenolol) 25 Mg Tablet, 25 MG PO DAILY, (Reported) Ergocalciferol (Vitamin D2) (Vitamin D2) 50,000 Units Cap, 50,000 UNITS PO QMONTH, (Reported) 1st OF THE MONTH Ferrous Sulfate (Ferrous Sulfate) 324 Mg Tablet.dr, 324 MG PO QHS, (Reported) Lactobacillus Acidophilus (Probiotic) 1 Each Capsule, 1 CAP PO DAILY, (Reported) Melatonin (Melatonin) 3 Mg Tablet, 3 MG PO QHS, (Reported) Nitrofurantoin Monohyd/M-Cryst (Nitrofurantoin [place]-Mcr 100 mg) 100 Mg Capsule, 100 MG PO QHS, (Reported) Potassium Chloride (Potassium Chloride) 10 Meq Capsule.er, 20 MEQ PO DAILY, (Reported) Rosuvastatin Calcium (Rosuvastatin Calcium) 40 Mg Tablet, 20 MG PO QHS, (Reported) Sertraline HCl (Sertraline HCl) 50 Mg Tablet, 50 MG PO QHS, (Reported) Tamsulosin HCl (Flomax) 0.4 Mg Cap, 0.4 MG PO DAILY, (Reported) Torsemide (Torsemide) 10 Mg Tablet, 10 MG PO Q2D, (Reported) Scheduled PRN Albuterol Sulf (Albuterol Sulfate) 2.5 Mg/3 Ml Vial.neb, 1 VIAL NEB Q4H PRN for SOB/WHEEZING, (Reported) Albuterol Sulfate (Proair Hfa) 8.5 Gm Hfa.aer.ad, 2 PUFF INH Q4H PRN for SHORTNESS OF BREATH, (Reported) Fluticasone Propionate (Fluticasone Propionate) 16 Gm Maysel.susp, 2 SPRAY NARES BID PRN for CONGESTION, (Reported) Allergies Coded Allergies: cephalexin (Verified Allergy, Intermediate, rash/hives, 08/13/19) Past Medical History Medical History 1. Hypertension 2. Dyslipidemia 3. BPH 4. CKD 5. Chronic urinary and bowel incontinence Surgical History Left hip replacement in 2009 Family History Father: History of lung cancer Mother: History of parkinsonism Social History * Smoker: former Smoker Alcohol: Denies Drugs: denies A-FIB/CHADSVASC A-FIB History Current/History of A-Fib/PAF?: No Review of Systems Constitutional: Denies: Chills, Fever Eyes: Denies: Vision change ENT: Denies: Sore Throat Skin: Denies: Rash Pulmonary: Denies: Dyspnea, Cough Cardiovascular: Denies: Chest Pain Gastrointestinal: Denies: Nausea, Abdominal Pain Genitourinary: Denies: Dysuria Hematologic: Denies: Bruising Neurological: Denies: Numbness Psych: Denies: Anxiety, Depression Other systems Patient has AMS and denied all of these symptoms, but significant other reports otherwise. Please see HPI Physical Examination General Exam: Positive: Cooperative, Other (Arouses but tends to be lethargic) Eye Exam: Positive: EOMI; Negative: Sclera icteric ENT Exam: Positive: Atraumatic Chest Exam: Positive: Clear to auscultation, Diminished (in the left lower lobe) Heart Exam: Positive: Rate Normal, Regular Rhythm Abdomen Exam: Positive: Normal bowel sounds, Soft; Negative: Tenderness Extremity Exam: Negative: Edema Neuro Exam: Positive: Normal Speech, Cranial Nerves 3-12 NL Psych Exam: Positive: Mood NL; Negative: Oriented x 3 Vital Signs Vital Signs Date Time Temp Pulse Resp B/P (MAP) Pulse Ox O2 Delivery O2 Flow Rate FiO2 10/25/20 13:30 2.0 10/25/20 12:09 97.8 10/25/20 11:54 61 21 125/86 (99) 96 Nasal Cannula Laboratory Data Labs 24H Laboratory Tests 2 10/25/20 12:04: Immature Granulocyte % (Auto) 0.4, Neutrophils (%) (Auto) 76.2H, Lymphocytes (%) (Auto) 10.6L, Monocytes (%) (Auto) 8.2H, Eosinophils (%) (Auto) 4.1H, Basophils (%) (Auto) 0.5, Neutrophils # (Auto) 7.6, Lymphocytes # (Auto) 1.1L, Monocytes # (Auto) 0.8, Eosinophils # (Auto) 0.4, Basophils # (Auto) 0.1, Nucleated Red Blood Cells % (auto) 0.0, Anion Gap 3L, Glomerular Filtration Rate > 60.0, Calcium Level 8.9, Total Bilirubin 0.3, Direct Bilirubin < 0.1, Aspartate Amino Transf (AST/SGOT) 30, Alanine Aminotransferase (ALT/SGPT) 28, Alkaline Phosphatase 100, Total Creatine Kinase 121, Creatine Kinase MB 3.0, Creatine Kinase MB Relative Index 2.48, Troponin I 0.06, NQ-Tdl-Z-Type Natriuretic Peptide 907H, Total Protein 6.6, Albumin 2.8L, Albumin/Globulin Ratio 0.7, Thyroid Stimulating Hormone (TSH) 1.340 10/25/20 12:05: Coronavirus (COVID-19)(PCR) NEGATIVE, Influenza Type A (RT-PCR) NEGATIVE, Influenza Type B (RT-PCR) NEGATIVE, Respiratory Syncytial Virus (PCR) NEGATIVE 10/25/20 12:06: Blood Gas Bicarbonate Standard 28.1, Venous Blood pH 7.334, Venous Blood Partial Pressure CO2 61.9H, Venous Blood Partial Pressure O2 35.0, Venous Blood Total Carbon Dioxide 34.1H, Venous Blood HCO3 32.2H, Venous Blood Oxygen Saturation 64.8, Venous Blood Base Excess 4.8H 10/25/20 12:12: Ammonia 32 10/25/20 12:28: Urine Color MARGO, Urine Appearance HAZY, Urine pH 5.0, Urine Specific [place] 1.028, Urine Protein 1+H, Urine Glucose (UA) NEGATIVE, Urine Ketones NEGATIVE, Urine Blood NEGATIVE, Urine Nitrite NEGATIVE, Urine Bilirubin NEGATIVE, Urine Urobilinogen 2.0H, Urine Leukocyte Esterase NEGATIVE, Urine WBC (Auto) 2, Urine RBC (Auto) 2, Urine Hyaline Casts (Auto) 0, Urine Bacteria (Auto) 1+H, Urine Squamous Epithelial Cells 0, Urine Amorphous Sediment SMALLH, Urine Mucus (Auto) SMALL, Urine Sperm (Auto) , Urine Opiates Screen NEGATIVE, Urine Methadone Screen NEGATIVE, Urine Barbiturates Screen NEGATIVE, Urine Phencyclidine Screen NEGATIVE, Urine Amphetamines Screen NEGATIVE, Urine Benzodiazepines Screen POSITIVEH, Urine Cocaine Metabolite Screen NEGATIVE, Urine Cannabinoids Screen NEGATIVE CBC/BMP Laboratory Tests 10/25/20 12:04 Assessment/Plan Mr. Crane is a 85 year old male with hypertension, hypolipidemia, and urine and bowel incontinence who presents to the ED with increasing lethargy. Before his exacerbation a few weeks back, he was not on supplemental oxygen. Since his exacerbation, he has been on 2L. CXR is suggestive of left pneumonia. Will start on Unasyn and Doxycycline for CAP. Will hold Macrobid for the time being. Otherwise, patient's AMS may be secondary to pneumonia vs benzodiazepine. His urine tox was positive for benzodiazepine, but unclear how this showed up in his urine. Plan / VTE VTE Prophylaxis Ordered?: Yes Plan Plan 1. Toxic encephalopathy -Either from PNA vs Benzodiazepine -Supportive care -Treat PNA -Fall risk 2. CAP -CXR demonstrates left lower lobe infiltrate -Will order sputum culture, legionella, and streptococcus -Unasyn (due to cephalexin allergy: Hives/rash) and doxycycline. -Supplemental oxygen as needed. Normally not on oxygen, but has needed it for the past few weeks 3. Urinary and fecal incontinence -Chronically has condom catheter -Chronically on Macrobid. Will hold for now as on other antibiotics. -Probiotics 4. Baseline dementia -Being worked up outpatient, possibly Lewy body dementia -Significant other reports he has good and bad days -Supportive care and redirection -Fall risk 5. Hypertension -Continue Atenolol and tamsulosin 6. Anxiety/Depression -Continue Sertraline 7. Insomnia -Continue Ramelteon 8. DVT ppx -Lovenox Disposition: pending clinical improvement JOVANA HERNANDEZ DO Oct 25, 2020 15:48
[2020-10-25] MEDS ORDERED: AMPICILLIN SOD/SULBACTAM SOD 3 GM in D5W MINI-BAG PLUS 100 ML IV ONE (16:00)
[2020-10-25 17:51] VITALS: BP 143/55
[2020-10-25] MEDS ORDERED: DOXYCYCLINE HYCLATE 100 MG in D5W MINI-BAG PLUS 100 ML IV ONE (18:00)
[2020-10-25 18:02] LABS: AMPHETAMINES LEVEL URINE NEGATIVE (NEGATIVE); BARBITURATES URINE NEGATIVE (NEGATIVE); BENZODIAZEPINES URINE POSITIVE (NEGATIVE); CANNABINOIDS URINE NEGATIVE (NEGATIVE); COCAINE METABOLITE URINE NEGATIVE (NEGATIVE); METHADONE URINE NEGATIVE (NEGATIVE); OPIATES URINE NEGATIVE (NEGATIVE); PHENCYCLIDINE URINE NEGATIVE (NEGATIVE)
--- NOTE | 2020-10-25 18:34 | REP ---
INDICATION: Left effusion? Possible infiltrate in left lung, hypoxia. COMPARISON: 04/20/2019. TECHNIQUE: CT chest performed without the use of intravenous contrast. Sagittal and coronal reconstruction images are performed. FINDINGS: Lungs: The right lung demonstrates mild fibro atelectatic changes predominantly in the dependent portion. There is consolidative opacity in left lower lobe representing atelectasis and or infiltrate. Mediastinum: No gross adenopathy. Monica: No gross adenopathy. Axilla: No gross adenopathy. Pleura: There is a large left pleural effusion. Heart: There is mild cardiomegaly. Thoracic aorta: No aneurysm. Upper abdominal structures: Bilateral adrenal adenomas are stable. Visualized osseous structures: There are degenerative changes of the spine without compression deformity. IMPRESSION: Large left pleural effusion with left lower lobe consolidation. <Electronically signed by Florencio Julio > 10/25/20 [id number]
[2020-10-25] MEDS: LACTOBACILLUS ACIDOPHILUS CAP (BACID) PO SCH (18:36)
[2020-10-25] MEDS: TAMSULOSIN 0.4 MG CAP PO SCH (18:36)
[2020-10-25] MEDS: atenoloL 25 MG TAB PO SCH (18:37)
[2020-10-25] MEDS: DOXYCYCLINE HYCLATE 100 MG in D5W MINI-BAG PLUS 100 ML IV SCH (18:37)
--- NOTE | 2020-10-25 18:45 | REP ---
INDICATION: Right knee pain COMPARISON: 03/25/2016. TECHNIQUE: Four views right knee. FINDINGS: There is no acute fracture or dislocation. There is a small joint effusion. There are vascular calcifications posteriorly. There is mild spurring of the superior and inferior poles of the patella. IMPRESSION: No fracture or dislocation. Small joint effusion. Patellar spurring. <Electronically signed by Florencio Julio > 10/25/20 [id number]
--- NOTE | 2020-10-25 18:52 | REP ---
INDICATION: Not walking on right foot COMPARISON: None. TECHNIQUE: Four views right foot. FINDINGS: There is no evidence of acute fracture, dislocation, or intrinsic bone disease.There is mild posterior and inferior calcaneal spurring. There is mild dorsal navicular spurring. There is moderate spurring at the dorsal aspect of the cuneiform bones and adjacent base of metatarsals. There is a large spur at the base of the 1st proximal phalanx laterally. There is diffuse narrowing of the interphalangeal joints. IMPRESSION: No fracture or dislocation. Degenerative changes as above. <Electronically signed by Florencio Julio > 10/25/20 [id number]
[2020-10-25 20:31] VITALS: BP 143/57
[2020-10-25] MEDS: RAMELTEON 8 MG TAB (ROZEREM) PO SCH (21:29)
[2020-10-25] MEDS: SERTRALINE HCL 50 MG TAB PO SCH (21:29)
[2020-10-25] MEDS: ACETAMINOPHEN TAB 650MG DOSE (2X325MG) PO SCH (21:29)
[2020-10-25] MEDS: ROSUVASTATIN 10 MG TAB (CRESTOR) PO SCH (21:30)
[2020-10-26] MEDS: AMPICILLIN SOD/SULBACTAM SOD 3 GM in D5W MINI-BAG PLUS 100 ML IV SCH ×5 (00:37→21:25)
[2020-10-26] MEDS: DOXYCYCLINE HYCLATE 100 MG in D5W MINI-BAG PLUS 100 ML IV SCH ×2 (05:36→17:34)
[2020-10-26 06:28] VITALS: BP 130/58
[2020-10-26 07:51] LABS: HEMATOCRIT 32.9 % (42.0-52.0); HEMOGLOBIN 10.2 g/dl (13.5-17.5); MEAN CORPUSCULAR HEMOGLOBIN 30.2 pg (27.0-33.0); MEAN CORPUSCULAR VOLUME 97.3 fl (80.0-96.0); PLATELET COUNT, AUTOMATED 287 10^3/uL (150-450); RED BLOOD COUNT 3.38 10^6/uL (4.30-6.10); WHITE BLOOD COUNT 8.8 10^3/uL (4.0-10.0)
[2020-10-26 08:43] LABS: BLOOD UREA NITROGEN 23 MG/DL (7-18); CALCIUM LEVEL 8.1 MG/DL (8.8-10.2); CARBON DIOXIDE LEVEL 32 MEQ/L (21-32); CHLORIDE LEVEL 106 MEQ/L (98-107); CREATININE FOR GFR 1.04 MG/DL (0.70-1.30); GLOMERULAR FILTRATION RATE > 60.0 (>35); GLUCOSE, FASTING 99 MG/DL (70-100); POTASSIUM SERUM 3.4 MEQ/L (3.5-5.1); SODIUM LEVEL 142 MEQ/L (136-145)
[2020-10-26] MEDS: atenoloL 25 MG TAB PO SCH (10:02)
[2020-10-26] MEDS: TAMSULOSIN 0.4 MG CAP PO SCH (10:02)
[2020-10-26] MEDS: LACTOBACILLUS ACIDOPHILUS CAP (BACID) PO SCH ×2 (10:03→17:34)
[2020-10-26] MEDS: ACETAMINOPHEN TAB 650MG DOSE (2X325MG) PO SCH ×2 (10:03→21:25)
[2020-10-26] MEDS: ENOXAPARIN 40MG/0.4ML SYRINGE (J1650 PER 10MG) SC SCH (10:04)
[2020-10-26 14:00] VITALS: BP 124/55
--- NOTE | 2020-10-26 15:39 | ECGEPIP ---
[facility] - ED Test Date: 2020-10-25 Pat Name: RICH TREVIÑO Department: Room: - Gender: Male Patient Relations Director: KELSY : 1935 Requested By: Celia Glasgow Order Number: [id number] Reading MD: Rojas Bhatti Measurements Intervals [place] Rate: 62 P: 66 MO: 164 QRS: -22 QRSD: 82 T: 10 QT: 422 QTc: 428 Interpretive Statements Normal sinus rhythm Baseline artifact Electronically Signed on 10-26-2020 15:39:06 EDT by Rojas Bhatti
[2020-10-26] MEDS ORDERED: FLUTICASONE PROP 0.05% NASAL SPRAY 16 GM (FLONASE) NARES PRN (16:00)
--- NOTE | 2020-10-26 19:42 | IPNPDOC ---
Subjective Date Seen The patient was seen on 10/26/20. Subjective Chief Complaint/HPI Mr. Crane is a 85 year old male with hypertension, hypolipidemia, and urine and bowel incontinence who presents to the ED with increasing lethargy. He was seen in the morning. This morning, he was still lethargic, but denied chest pain or dyspnea. Objective Physical Examination General Exam: Positive: Cooperative, Other (Arouses but tends to be lethargic) Eye Exam: Positive: EOMI; Negative: Sclera icteric ENT Exam: Positive: Atraumatic Chest Exam: Positive: Clear to auscultation, Diminished (in the left lower lobe) Heart Exam: Positive: Rate Normal, Regular Rhythm Abdomen Exam: Positive: Normal bowel sounds, Soft; Negative: Tenderness Extremity Exam: Negative: Edema Neuro Exam: Positive: Normal Speech, Cranial Nerves 3-12 NL Psych Exam: Positive: Mood NL; Negative: Oriented x 3 Assessment /Plan Assessment Mr. Crane is a 85 year old male with hypertension, hypolipidemia, and urine and bowel incontinence who presents to the ED with increasing lethargy. Before his exacerbation a few weeks back, he was not on supplemental oxygen. Since his exacerbation, he has been on 2L. CXR is suggestive of left pneumonia. Will start on Unasyn and Doxycycline for CAP. Will hold Macrobid for the time being. Otherwise, patient's AMS may be secondary to pneumonia vs benzodiazepine. His urine tox was positive for benzodiazepine, but unclear how this showed up in his urine. Repeat UTox also positive for benzodiazepine. Plan/VTE VTE Prophylaxis Ordered?: Yes Plan 1. Toxic encephalopathy -Either from PNA vs Benzodiazepine -Supportive care -Treat PNA -Fall risk 2. CAP -CXR demonstrates left lower lobe infiltrate -Will order sputum culture, legionella, and streptococcus -Unasyn (due to cephalexin allergy: Hives/rash) and doxycycline. -Supplemental oxygen as needed. Normally not on oxygen, but has needed it for the past few weeks 3. Urinary and fecal incontinence -Chronically has condom catheter -Chronically on Macrobid. Will hold for now as on other antibiotics. -Probiotics 4. Baseline dementia -Being worked up outpatient, possibly Lewy body dementia -Significant other reports he has good and bad days -Supportive care and redirection -Fall risk 5. Hypertension -Continue Atenolol and tamsulosin 6. Anxiety/Depression -Continue Sertraline 7. Insomnia -Continue Ramelteon 8. DVT ppx -Lovenox Disposition: pending clinical improvement VS, I&O, 24H, [place]victor[place] Vital Signs/I&O Vital Signs Date Time Temp Pulse Resp B/P (MAP) Pulse Ox O2 Delivery O2 Flow Rate FiO2 10/26/20 14:00 97.8 52 17 124/55 (78) 97 Nasal Cannula 2.0 I&O- Last 24 Hours up to 6 AM 10/26/20 06:00 Intake Total 400 ml Output Total 0 ml Balance 400 ml Laboratory Data 24H LABS Laboratory Tests 2 10/26/20 07:41: Nucleated Red Blood Cells % (auto) 0.0, Anion Gap 4L, Glomerular Filtration Rate > 60.0, Calcium Level 8.1L CBC/BMP Laboratory Tests 10/26/20 07:41 JOVANA HERNANDEZ DO Oct 26, 2020 19:42
[2020-10-26] MEDS: ROSUVASTATIN 10 MG TAB (CRESTOR) PO SCH (21:25)
[2020-10-26] MEDS: RAMELTEON 8 MG TAB (ROZEREM) PO SCH (21:25)
[2020-10-26] MEDS: SERTRALINE HCL 50 MG TAB PO SCH (21:25)
[2020-10-26 22:09] VITALS: BP 138/60
[2020-10-27] VITALS (7 sets, daily range): BP systolic 118–136; BP diastolic 45–55
[2020-10-27] MEDS: AMPICILLIN SOD/SULBACTAM SOD 3 GM in D5W MINI-BAG PLUS 100 ML IV SCH ×4 (04:18→21:15)
[2020-10-27] MEDS: DOXYCYCLINE HYCLATE 100 MG in D5W MINI-BAG PLUS 100 ML IV SCH ×2 (05:08→17:30)
[2020-10-27 08:32] LABS: HEMATOCRIT 33.4 % (42.0-52.0); HEMOGLOBIN 10.4 g/dl (13.5-17.5); MEAN CORPUSCULAR HEMOGLOBIN 30.3 pg (27.0-33.0); MEAN CORPUSCULAR HGB CONC 31.1 g/dl (32.0-36.5); MEAN CORPUSCULAR VOLUME 97.4 fl (80.0-96.0); PLATELET COUNT, AUTOMATED 281 10^3/uL (150-450); RED BLOOD COUNT 3.43 10^6/uL (4.30-6.10); WHITE BLOOD COUNT 7.9 10^3/uL (4.0-10.0)
[2020-10-27 08:57] LABS: ALBUMIN 2.5 GM/DL (3.2-5.2); BLOOD UREA NITROGEN 18 MG/DL (7-18); CALCIUM LEVEL 8.3 MG/DL (8.8-10.2); CARBON DIOXIDE LEVEL 34 MEQ/L (21-32); CHLORIDE LEVEL 103 MEQ/L (98-107); GLOMERULAR FILTRATION RATE > 60.0 (>35); GLUCOSE, FASTING 90 MG/DL (70-100); LDH LACTATE DEHYDROGENASE 153 U/L (87-241); POTASSIUM SERUM 3.4 MEQ/L (3.5-5.1); SODIUM LEVEL 141 MEQ/L (136-145); TOTAL PROTEIN 5.7 GM/DL (6.4-8.2)
[2020-10-27 08:58] LABS: INR 0.99; PROTHROMBIN TIME 13.3 SECONDS (12.5-14.3)
[2020-10-27] MEDS: ENOXAPARIN 40MG/0.4ML SYRINGE (J1650 PER 10MG) SC SCH (09:00)
[2020-10-27] MEDS: LACTOBACILLUS ACIDOPHILUS CAP (BACID) PO SCH ×2 (09:04→17:30)
[2020-10-27] MEDS: TAMSULOSIN 0.4 MG CAP PO SCH (09:04)
[2020-10-27] MEDS: ACETAMINOPHEN TAB 650MG DOSE (2X325MG) PO SCH ×2 (09:05→21:16)
[2020-10-27] MEDS: atenoloL 25 MG TAB PO SCH (09:06)
--- NOTE | 2020-10-27 11:36 | IPNPDOC ---
Subjective Date Seen The patient was seen on 10/27/20. Subjective Chief Complaint/HPI Mr. Crane is a 85 year old male with hypertension, hypolipidemia, and urine and bowel incontinence who is here with increasing lethargy. This morning, he was still sleepy. Denies chest pain, but has some dyspnea. Plan for diagnostic thoracentesis this afternoon. Otherwise, spoke with significant other. She was requesting more information about the elevated benzodiazepine in the Utox. Denies either of them taking benzodiazepines or street drugs at home. Possibly a false positive. Called lab. They can send the urine from admission for a Benzo Quant urine. Results to return in 7 to 10 days. Objective Physical Examination General Exam: Positive: Cooperative, Other (Arouses but tends to be lethargic) Eye Exam: Positive: EOMI; Negative: Sclera icteric ENT Exam: Positive: Atraumatic Chest Exam: Positive: Clear to auscultation, Diminished (in the left lower lobe) Heart Exam: Positive: Rate Normal, Regular Rhythm Abdomen Exam: Positive: Normal bowel sounds, Soft; Negative: Tenderness Extremity Exam: Negative: Edema Neuro Exam: Positive: Normal Speech, Cranial Nerves 3-12 NL Psych Exam: Positive: Mood NL; Negative: Oriented x 3 Assessment /Plan Assessment Mr. Crane is a 85 year old male with hypertension, hypolipidemia, and urine and bowel incontinence who presents to the ED with increasing lethargy. Before his exacerbation a few weeks back, he was not on supplemental oxygen. Since his exacerbation, he has been on 2L. CXR is suggestive of left pneumonia. Will start on Unasyn and Doxycycline for CAP. Will hold Macrobid for the time being. He does have large leg pleural effusion. Plan for diagnostic thoracentesis today. Otherwise, patient's AMS may be secondary to pneumonia vs benzodiazepine. His urine tox and repeat was positive for benzodiazepine, but unclear how this showed up in his urine. Patient and significant other denies benzodiazepine or street drugs at home. Significant other requests further investigation into positive benzodiazepine test. Sending urine from admission out for a benzo quant urine test. May be able to differentiate type of benzo, levels, and possible false positive. Results to return in 7 to 10 days. Plan/VTE VTE Prophylaxis Ordered?: Yes Plan 1. Toxic encephalopathy -Either from PNA vs Benzodiazepine -Supportive care -Treat PNA -Fall risk -Sent urine out for Benzo quant for more information 2. CAP -CXR demonstrates left lower lobe infiltrate -Will order sputum culture, legionella, and streptococcus -Unasyn (due to cephalexin allergy: Hives/rash) and doxycycline. -Supplemental oxygen as needed. Normally not on oxygen, but has needed it for the past few weeks 3. Large left pleural effusion -Seen on CT chest -Diagnostic thoracentesis today 4. Urinary and fecal incontinence -Chronically has condom catheter -Chronically on Macrobid. Will hold for now as on other antibiotics. -Probiotics 5. Baseline dementia -Being worked up outpatient, possibly Lewy body dementia -Significant other reports he has good and bad days -Supportive care and redirection -Fall risk 6. Hypertension -Continue Atenolol and tamsulosin 7. Anxiety/Depression -Continue Sertraline 8. Insomnia -Hold Ramelteon due to lethargy 9. DVT ppx -Lovenox Disposition: pending clinical improvement and thoracentesis results VS, I&O, 24H, Fishbone Vital Signs/I&O Vital Signs Date Time Temp Pulse Resp B/P (MAP) Pulse Ox O2 Delivery O2 Flow Rate FiO2 10/27/20 09:06 62 132/86 10/27/20 08:04 2.0 10/27/20 06:00 97.3 17 98 Nasal Cannula I&O- Last 24 Hours up to 6 AM 10/27/20 05:59 Intake Total 770 ml Output Total 400 ml Balance 370 ml Laboratory Data 24H LABS Laboratory Tests 2 10/27/20 07:54: Nucleated Red Blood Cells % (auto) 0.0, Anion Gap 4L, Glomerular Filtration Rate > 60.0, Calcium Level 8.3L, Lactate Dehydrogenase 153, Total Protein 5.7L, Albumin 2.5L 10/27/20 08:35: Prothrombin Time 13.3, Prothromb Time International Ratio 0.99 CBC/BMP Laboratory Tests 10/27/20 07:54 JOVANA HERNANDEZ DO Oct 27, 2020 11:36
[2020-10-27] MEDS ORDERED: LIDOCAINE 1% MDV 20ML VIAL As Ordered ONE (15:05)
[2020-10-27 15:42] LABS: PH BODY FLUID 7.659 UNITS (NOT ESTABLISHED); SOURCE, BODY FLUID pH PLEURAL
[2020-10-27 15:52] LABS: PLEURAL FL COLOR YELLOW (COLORLESS); SOURCE, BODY FLUID PLEURAL
[2020-10-27 15:53] LABS: APPEARANCE, BODY FLUID HAZY (CLEAR)
--- NOTE | 2020-10-27 16:05 | REP ---
INDICATION: POST THORA, 2 VIEW. COMPARISON: 10/25/2020. TECHNIQUE: Two views chest. FINDINGS: No pneumothorax is seen status post left thoracentesis. There is a decreased amount of left pleural fluid. There are mild patchy parenchymal opacities in the left base representing atelectasis and or infiltrate. Mild increased interstitial densities are seen in the right lung base. The heart is enlarged. There are degenerative changes of the spine. IMPRESSION: No pneumothorax status post left thoracentesis. Decreased amount of left pleural fluid. Left basilar atelectasis/infiltrate. <Electronically signed by Florencio Julio > 10/27/20 [id number]
[2020-10-27 16:19] LABS: AMYLASE, BODY FLUID 56 U/L (NOT ESTABLISHED); CHOLESTEROL, BODY FLUID < 50 MG/DL (NOT ESTABLISHED); LDH, BODY FLUID 138 U/L (NOT ESTABLISHED); SOURCE, BODY FLUID ALBUMIN PLEURAL; SOURCE, BODY FLUID AMYLASE PLEURAL; SOURCE, BODY FLUID CHOL PLEURAL; SOURCE, BODY FLUID GLUCOSE PLEURAL; SOURCE, BODY FLUID LDH PLEURAL; SOURCE, BODY FLUID TOT PROTEIN PLEURAL; SOURCE, BODY FLUID TRIG PLEURAL; TOTAL PROTEIN, BODY FLUID 4.1 G/DL (NOT ESTABLISHED); TRIGLYCERIDE, BODY FLUID 15 MG/DL (NOT ESTABLISHED)
--- NOTE | 2020-10-27 17:22 | REP ---
INDICATION: Large left pleural effusion. COMPARISON: None. TECHNIQUE: The procedure was performed under the direct supervision of Dr. Julio. The risks and benefits of the procedure were explained and informed consent was obtained by the healthcare proxy. The left pleural effusion was localized using ultrasound guidance. The skin was prepped and draped in a sterile fashion. 1% lidocaine was used as a local anesthetic. An 8 Lao multi side hole catheter was inserted using trocar technique. 785 cc of yellow fluid was withdrawn with a sample sent to the lab for analysis. The patient tolerated the procedure well and there were no immediate complications. FINDINGS: None IMPRESSION: Ultrasound-guided left thoracentesis yielding 785 cc of yellow fluid. <Electronically signed by Chung Saenz > 10/27/20 [id number] <Electronically signed by Florencio Julio > 10/27/20 [id number]
[2020-10-27] MEDS: ROSUVASTATIN 10 MG TAB (CRESTOR) PO SCH (21:16)
[2020-10-27] MEDS: SERTRALINE HCL 50 MG TAB PO SCH (21:16)
[2020-10-28] MEDS: AMPICILLIN SOD/SULBACTAM SOD 3 GM in D5W MINI-BAG PLUS 100 ML IV SCH ×4 (04:41→21:39)
[2020-10-28 06:00] VITALS: BP 141/59
[2020-10-28] MEDS: DOXYCYCLINE HYCLATE 100 MG in D5W MINI-BAG PLUS 100 ML IV SCH (06:29)
[2020-10-28 07:31] LABS: HEMATOCRIT 34.7 % (42.0-52.0); HEMOGLOBIN 10.9 g/dl (13.5-17.5); MEAN CORPUSCULAR HEMOGLOBIN 30.2 pg (27.0-33.0); MEAN CORPUSCULAR HGB CONC 31.4 g/dl (32.0-36.5); MEAN CORPUSCULAR VOLUME 96.1 fl (80.0-96.0); PLATELET COUNT, AUTOMATED 300 10^3/uL (150-450); RED BLOOD COUNT 3.61 10^6/uL (4.30-6.10); WHITE BLOOD COUNT 9.5 10^3/uL (4.0-10.0)
[2020-10-28 07:51] LABS: BLOOD UREA NITROGEN 19 MG/DL (7-18); CALCIUM LEVEL 8.3 MG/DL (8.8-10.2); CARBON DIOXIDE LEVEL 31 MEQ/L (21-32); CHLORIDE LEVEL 102 MEQ/L (98-107); CREATININE FOR GFR 0.97 MG/DL (0.70-1.30); GLOMERULAR FILTRATION RATE > 60.0 (>35); GLUCOSE, FASTING 98 MG/DL (70-100); POTASSIUM SERUM 3.5 MEQ/L (3.5-5.1); SODIUM LEVEL 140 MEQ/L (136-145)
[2020-10-28 08:33] VITALS: BP 140/54
[2020-10-28] MEDS: ACETAMINOPHEN TAB 650MG DOSE (2X325MG) PO SCH ×2 (09:00→21:40)
[2020-10-28] MEDS: LACTOBACILLUS ACIDOPHILUS CAP (BACID) PO SCH ×2 (10:15→17:05)
[2020-10-28] MEDS: TAMSULOSIN 0.4 MG CAP PO SCH (10:18)
[2020-10-28] MEDS: atenoloL 25 MG TAB PO SCH (10:18)
[2020-10-28] MEDS: ENOXAPARIN 40MG/0.4ML SYRINGE (J1650 PER 10MG) SC SCH (10:19)
[2020-10-28] MEDS: SILVER SULFADIAZINE 1% CR 50 GM JAR TOP SCH ×2 (13:00→21:40)
[2020-10-28 14:00] VITALS: BP 149/81
[2020-10-28] MEDS ORDERED: SILVER SULFADIAZINE 1% CR 50 GM JAR TOP ONE (14:00)
[2020-10-28 14:44] VITALS: BP 135/63
[2020-10-28] MEDS: DOXYCYCLINE HYCLATE 100MG TABLET PO SCH (21:40)
[2020-10-28] MEDS: SERTRALINE HCL 50 MG TAB PO SCH (21:41)
[2020-10-28] MEDS: ROSUVASTATIN 10 MG TAB (CRESTOR) PO SCH (21:41)
[2020-10-28 22:00] VITALS: BP 188/90
[2020-10-29] MEDS: AMPICILLIN SOD/SULBACTAM SOD 3 GM in D5W MINI-BAG PLUS 100 ML IV SCH ×2 (04:51→09:46)
[2020-10-29 06:00] VITALS: BP 117/56
[2020-10-29 06:09] LABS: Benzodiazepines Negative (Cutoff=300)
[2020-10-29 07:18] LABS: HEMATOCRIT 35.3 % (42.0-52.0); HEMOGLOBIN 11.2 g/dl (13.5-17.5); MEAN CORPUSCULAR HEMOGLOBIN 30.4 pg (27.0-33.0); MEAN CORPUSCULAR HGB CONC 31.7 g/dl (32.0-36.5); MEAN CORPUSCULAR VOLUME 95.9 fl (80.0-96.0); PLATELET COUNT, AUTOMATED 288 10^3/uL (150-450); RED BLOOD COUNT 3.68 10^6/uL (4.30-6.10); WHITE BLOOD COUNT 8.5 10^3/uL (4.0-10.0)
[2020-10-29 07:49] LABS: BLOOD UREA NITROGEN 14 MG/DL (7-18); CALCIUM LEVEL 8.2 MG/DL (8.8-10.2); CARBON DIOXIDE LEVEL 33 MEQ/L (21-32); CHLORIDE LEVEL 105 MEQ/L (98-107); CREATININE FOR GFR 0.88 MG/DL (0.70-1.30); GLOMERULAR FILTRATION RATE > 60.0 (>35); GLUCOSE, FASTING 100 MG/DL (70-100); POTASSIUM SERUM 3.8 MEQ/L (3.5-5.1); SODIUM LEVEL 142 MEQ/L (136-145)
[2020-10-29] MEDS: SILVER SULFADIAZINE 1% CR 50 GM JAR TOP SCH ×2 (09:00→20:09)
[2020-10-29] MEDS: TAMSULOSIN 0.4 MG CAP PO SCH (09:46)
[2020-10-29] MEDS: atenoloL 25 MG TAB PO SCH (09:46)
[2020-10-29] MEDS: DOXYCYCLINE HYCLATE 100MG TABLET PO SCH (09:46)
[2020-10-29] MEDS: LACTOBACILLUS ACIDOPHILUS CAP (BACID) PO SCH ×2 (09:46→18:05)
[2020-10-29] MEDS: ACETAMINOPHEN TAB 650MG DOSE (2X325MG) PO SCH ×2 (09:46→20:08)
[2020-10-29] MEDS: ENOXAPARIN 40MG/0.4ML SYRINGE (J1650 PER 10MG) SC SCH (09:47)
--- NOTE | 2020-10-29 10:33 | IPN ---
PROGRESS NOTE DATE: 10/29/2020 SUBJECTIVE: The patient remains confused, very weak, unable to get out of bed without assistance. Has not been working well with physical therapy and often refuses. Disoriented. The patient's medications have been reviewed. He is just on Zoloft. He is on no hypnotics or sedatives. No pain medications. He denies any chest pain, pressure, tightness or shortness of breath this morning. No fevers or chills overnight. OBJECTIVE: VITAL SIGNS: Temperature 97.8, pulse 60, respiratory rate 18, blood pressure 117/56, 97% on 2 liters nasal cannula. GENERAL: Generally the patient is awake, alert and oriented to himself. He is answering questions but is slow to respond this morning. He is appropriate, however. HEENT: Dry mucous membranes. No JVD, thyromegaly. LUNGS: Lungs are diminished with fine expiratory wheezing. HEART: S1, S2 sinus rhythm. ABDOMEN: Abdomen is soft, nontender, nondistended. Positive bowel sounds times four quadrants. EXTREMITIES: No cyanosis, clubbing, or pitting edema. CBC, metabolic panel have been reviewed. Microbiology has been reviewed. ASSESSMENT AND PLAN: This is an 85-year-old male with a history of hypertension, hyperlipidemia, urine and bowel incontinence, presented with altered mental status admitted for left-sided pneumonia on Unasyn and doxycycline. CURRENT ISSUES: 1. Acute metabolic encephalopathy secondary to pneumonia versus previous benzodiazepine use. Currently on IV antibiotics. Still not working well with physical therapy. We have minimized sedation and pain medications. 2. Community-acquired pneumonia. Currently on Unasyn and doxycycline due to a Cephalexin allergy. No signs of any aspiration. He has remained afebrile with normal white blood cell count. Pleural fluid cultures are still pending. We will deescalate once sensitivity results are available. 3. Urine and fecal incontinence. Has chronic condom catheter. 4. Left-sided pleural effusion, had diagnostic thoracentesis. Awaiting culture results. Still on Unasyn and doxycycline. 5. Hypertension, on Atenolol and tamsulosin. 6. Dementia, possibly Lewy body. The patient is unable to work with physical therapy due to altered mental status. We will continue increasing reorientation daily, out of bed to chair for his meals and ambulate daily. 7. Anxiety, depression on Sertraline. 8. Chronic insomnia on no medications due to altered mental status. 9. DVT prophylaxis on Lovenox. MTDD
[2020-10-29] MEDS: MOXIFLOXACIN 400 MG TAB PO SCH (12:12)
[2020-10-29 14:00] VITALS: BP 121/57
[2020-10-29] MEDS: SERTRALINE HCL 50 MG TAB PO SCH (20:08)
[2020-10-29] MEDS: ROSUVASTATIN 10 MG TAB (CRESTOR) PO SCH (20:08)
[2020-10-29 22:00] VITALS: BP 169/68
[2020-10-30 06:00] VITALS: BP 166/73
[2020-10-30] MEDS: MOXIFLOXACIN 400 MG TAB PO SCH (06:06)
[2020-10-30 07:39] LABS: HEMATOCRIT 34.4 % (42.0-52.0); HEMOGLOBIN 10.7 g/dl (13.5-17.5); MEAN CORPUSCULAR HEMOGLOBIN 30.3 pg (27.0-33.0); MEAN CORPUSCULAR HGB CONC 31.1 g/dl (32.0-36.5); MEAN CORPUSCULAR VOLUME 97.5 fl (80.0-96.0); PLATELET COUNT, AUTOMATED 279 10^3/uL (150-450); RED BLOOD COUNT 3.53 10^6/uL (4.30-6.10); WHITE BLOOD COUNT 9.4 10^3/uL (4.0-10.0)
[2020-10-30] MEDS: ENOXAPARIN 40MG/0.4ML SYRINGE (J1650 PER 10MG) SC SCH (08:01)
[2020-10-30 08:02] LABS: BLOOD UREA NITROGEN 18 MG/DL (7-18); CARBON DIOXIDE LEVEL 30 MEQ/L (21-32); CHLORIDE LEVEL 107 MEQ/L (98-107); CREATININE FOR GFR 0.99 MG/DL (0.70-1.30); GLOMERULAR FILTRATION RATE > 60.0 (>35); GLUCOSE, FASTING 99 MG/DL (70-100); POTASSIUM SERUM 3.6 MEQ/L (3.5-5.1); SODIUM LEVEL 141 MEQ/L (136-145)
[2020-10-30] MEDS: SILVER SULFADIAZINE 1% CR 50 GM JAR TOP SCH ×2 (08:02→20:54)
[2020-10-30] MEDS: ACETAMINOPHEN TAB 650MG DOSE (2X325MG) PO SCH ×2 (08:02→20:54)
[2020-10-30] MEDS: TAMSULOSIN 0.4 MG CAP PO SCH (08:02)
[2020-10-30] MEDS: LACTOBACILLUS ACIDOPHILUS CAP (BACID) PO SCH ×2 (08:02→18:17)
[2020-10-30] MEDS: atenoloL 25 MG TAB PO SCH (08:06)
[2020-10-30 09:20] LABS: ABG BASE EXCESS 0.9 (-2.0-2.0); ABG HCO3 25.8 MEQ/L (22.0-26.0); ABG O2 SATURATION 94.3 % (95.0-99.0); ABG PARTIAL PRESSURE CO2 42.3 mmHg (35.0-45.0); ABG PARTIAL PRESSURE O2 74.1 mmHg (75.0-100.0); ABG STANDARD HCO3 25.2 MEQ/L (22.0-26.0); ABG TOTAL CO2 27.1 MEQ/L (23.0-31.0); ABG pH (ARTERIAL) 7.403 UNITS (7.350-7.450)
--- NOTE | 2020-10-30 11:10 | IPN ---
PROGRESS NOTE DATE: 10/30/2020 SUBJECTIVE: Per physical therapy patient has been lethargic and has not been cooperating with physical therapy. Review of his medication list shows no drug induced sedation. Patient is not receiving any pain medications or sedatives. This morning patient is awake, alert, oriented and speaking appropriately, answering questions well, eating his breakfast sitting up in bed. He denies any worsening cough or shortness of breath, complains of generalized weakness, wants to go home, but began to close his eyes and not answer questions when encouraged to work with physical therapy. OBJECTIVE: Vital signs: Temperature 97.4, pulse 71, respiratory rate 18, blood pressure 138/63, 93% on 1 liter nasal cannula. General: Awake, alert, oriented to self and place. He was answering questions appropriately, but closed his eyes objectively when encouraged to work with physical therapy. HEENT: Face is symmetric. Moist mucous membranes. Neck: No JVD, no thyromegaly. Lungs: Diminished with fine expiratory wheezing bilaterally. Heart: S1 and S2 sinus rhythm. Abdomen: Soft, nontender, nondistended, positive bowel sounds. Extremities: No cyanosis or clubbing. LABORATORY DATA: Laboratory data/microbiology have been reviewed. ASSESSMENT: This 85-year-old male, Full Code, who lives at home with his significant other with history of hypertension, hyperlipidemia, urine and bowel incontinence presented to the Emergency Room with altered mental status, found to have left sided pneumonia, was on Unasyn and doxycycline currently on Avelox. IMPRESSIONS: 1. Community acquired pneumonia. 2. Acute metabolic encephalopathy secondary to pneumonia. 3. Prior benzodiazepine use. Patient's ammonia and arterial blood gas are normal. 4. History of urinary and fecal incontinence with chronic condom catheter present on the hospital admission. 5. Left sided pleural effusion status post diagnostic thoracentesis. 6. Hypertension. 7. Lewy Body dementia. 8. Anxiety/depression. 9. Chronic insomnia. PLAN: Review of his medications show no sedatives, hypnotics or narcotics that could cause worsening sedation. At this time patient's worsening mental status may be related to progression of his Lewy Body dementia. He is encouraged to ambulate with physical therapy as well as out of bed to chair for all his meals. He is doing well and has been transitioned to Avelox 400 daily from Unasyn and doxycycline previously. He is otherwise medically stable, but currently has not been out of bed and has not been working with physical therapy. May need fci placement. CODE STATUS: Full Code.
[2020-10-30 14:00] VITALS: BP 138/65
[2020-10-30] MEDS: SERTRALINE HCL 50 MG TAB PO SCH (20:54)
[2020-10-30] MEDS: ROSUVASTATIN 10 MG TAB (CRESTOR) PO SCH (20:54)
[2020-10-30 22:00] VITALS: BP 155/67
[2020-10-31 06:11] LABS: HEMATOCRIT 36.8 % (42.0-52.0); HEMOGLOBIN 11.5 g/dl (13.5-17.5); MEAN CORPUSCULAR HEMOGLOBIN 30.4 pg (27.0-33.0); MEAN CORPUSCULAR HGB CONC 31.3 g/dl (32.0-36.5); MEAN CORPUSCULAR VOLUME 97.4 fl (80.0-96.0); PLATELET COUNT, AUTOMATED 312 10^3/uL (150-450); RED BLOOD COUNT 3.78 10^6/uL (4.30-6.10); WHITE BLOOD COUNT 10.4 10^3/uL (4.0-10.0)
[2020-10-31] MEDS: MOXIFLOXACIN 400 MG TAB PO SCH (06:34)
[2020-10-31 06:37] VITALS: BP 156/67
[2020-10-31 06:37] LABS: BLOOD UREA NITROGEN 19 MG/DL (7-18); CALCIUM LEVEL 8.6 MG/DL (8.8-10.2); CARBON DIOXIDE LEVEL 28 MEQ/L (21-32); CHLORIDE LEVEL 108 MEQ/L (98-107); CREATININE FOR GFR 0.91 MG/DL (0.70-1.30); GLOMERULAR FILTRATION RATE > 60.0 (>35); GLUCOSE, FASTING 90 MG/DL (70-100); POTASSIUM SERUM 4.1 MEQ/L (3.5-5.1); SODIUM LEVEL 143 MEQ/L (136-145)
[2020-10-31] MEDS: SILVER SULFADIAZINE 1% CR 50 GM JAR TOP SCH ×2 (09:00→20:57)
[2020-10-31] MEDS ORDERED: LEVO750T14 PO (09:34)
[2020-10-31] MEDS: LACTOBACILLUS ACIDOPHILUS CAP (BACID) PO SCH ×2 (09:52→18:34)
[2020-10-31] MEDS: atenoloL 25 MG TAB PO SCH (09:53)
[2020-10-31] MEDS: ENOXAPARIN 40MG/0.4ML SYRINGE (J1650 PER 10MG) SC SCH (09:53)
[2020-10-31] MEDS: ACETAMINOPHEN TAB 650MG DOSE (2X325MG) PO SCH ×2 (09:53→20:57)
[2020-10-31] MEDS: TAMSULOSIN 0.4 MG CAP PO SCH (09:53)
--- NOTE | 2020-10-31 10:05 | DS.PDOC ---
Discharge Summary General Date of Admission Oct 25, 2020 at 14:53 Date of Discharge 10/31/20 home w home care Discharge Summary DISCHARGE DIAGNOSES: acute metab encephalopathy acute hypoxic respiratory failure CAP pleural efufsion HTN hyperlipdiemia urine/bowel incontinence Debility Gait instability Lewy body dementia chronic insomnia anxiety depression DISCHARGE MEDS: SEE BELOW DISCHARGE INSTRUCTIONS: 2L O2 NC continous. pcp fu 1wk assisted ambulation only 07/02 supervision fall precautions walk w walker HOSPITAL COURSE: 85 Y/O M w pmh of hypertension, hyperlipidemia, urine and bowel incontinence, presented with altered mental status admitted for left-sided pneumonia on Unasyn and doxycycline. 1. Acute metabolic encephalopathy secondary to pneumonia versus previous benzodiazepine use. s/p iv antibiotics.home physical therapy. minimized sedation and pain medications. 2. Community-acquired pneumonia. s/p iv Unasyn and doxycycline due to a Cephalexin allergy. No signs of any aspiration. He has remained afebrile with normal white blood cell count. Pleural fluid cultures reviewd 3. Urine and fecal incontinence. Has chronic condom catheter. 4. Left-sided pleural effusion, had diagnostic thoracentesis.s/p unasyn and doxy 5. Hypertension, on Atenolol and tamsulosin. 6. Dementia, possibly Lewy body. The patient is unable to work with physical therapy due to altered mental status. continue increasing reorientation daily, out of bed to chair for his meals and ambulate daily. 7. Anxiety, depression on Sertraline. 8. Chronic insomnia on no medications due to altered mental status. 9l Acute hypoxic resp failure due to PNA, home o2 home care referrral DISCHARGE PE: VITALS: SEE BELOW General:Arousable. disoriented to date. aaox [address] HEENT: Face is symmetric. Moist mucous membranes. Neck: No JVD, no thyromegaly. Lungs: Diminished with fine expiratory wheezing bilaterally. Heart: S1 and S2 sinus rhythm. Abdomen: Soft, nontender, nondistended, positive bowel sounds. Extremities: No cyanosis or clubbing. LABS/MICRO/IMAGING: SEE BELOW TIME SPENT ON DISCHARGE: 30 MIN. Vital Signs/I&Os Vital Signs Date Time Temp Pulse Resp B/P (MAP) Pulse Ox O2 Delivery O2 Flow Rate FiO2 10/31/20 09:53 75 156/67 10/31/20 06:37 97.9 20 88 Nasal Cannula 2.0 I&O- Last 24 Hours up to 6 AM 10/31/20 06:00 Intake Total 720 ml Output Total 0 ml Balance 720 ml Laboratory Data Labs 24H Laboratory Tests 2 10/31/20 06:01: Nucleated Red Blood Cells % (auto) 0.0, Anion Gap 7L, Glomerular Filtration Rate > 60.0, Calcium Level 8.6L, HIV (1&2) Antibody NEGATIVE, HIV P24 Antigen NEGATIVE CBC/BMP Laboratory Tests 10/31/20 06:01 Microbiology Microbiology 10/27/20 Acid Fast Stain, Received Pending 10/27/20 Mycobacterial Culture, Received Pending 10/27/20 Fungal Smear, Received Pending 10/27/20 Fungal Culture, Received Pending 10/27/20 Gram Stain - Final, Complete 10/27/20 Body Fluid Culture - Final, Complete 10/27/20 Anaerobic Culture - Final, Complete Discharge Medications Scheduled Acetaminophen (Acetaminophen) 325 Mg Tablet, 650 MG PO BID, (Reported) Atenolol (Atenolol) 25 Mg Tablet, 25 MG PO DAILY, (Reported) Ergocalciferol (Vitamin D2) (Vitamin D2) 50,000 Units Cap, 50,000 UNITS PO QMONTH, (Reported) 1st OF THE MONTH Ferrous Sulfate (Ferrous Sulfate) 324 Mg Tablet.dr, 324 MG PO QHS, (Reported) Lactobacillus Acidophilus (Probiotic) 1 Each Capsule, 1 CAP PO DAILY, (Reported) Melatonin (Melatonin) 3 Mg Tablet, 3 MG PO QHS, (Reported) Nitrofurantoin Monohyd/M-Cryst (Nitrofurantoin [place]-Mcr 100 mg) 100 Mg Capsule, 100 MG PO QHS, (Reported) Potassium Chloride (Potassium Chloride) 10 Meq Capsule.er, 20 MEQ PO DAILY, (Reported) Rosuvastatin Calcium (Rosuvastatin Calcium) 40 Mg Tablet, 20 MG PO QHS, (Reported) Sertraline HCl (Sertraline HCl) 50 Mg Tablet, 50 MG PO QHS, (Reported) Tamsulosin HCl (Flomax) 0.4 Mg Cap, 0.4 MG PO DAILY, (Reported) Torsemide (Torsemide) 10 Mg Tablet, 10 MG PO Q2D, (Reported) levoFLOXacin (levoFLOXacin) 750 Mg Tablet, 750 MG PO Q48H Scheduled PRN Albuterol Sulf (Albuterol Sulfate) 2.5 Mg/3 Ml Vial.neb, 1 VIAL NEB Q4H PRN for SOB/WHEEZING, (Reported) Albuterol Sulfate (Proair Hfa) 8.5 Gm Hfa.aer.ad, 2 PUFF INH Q4H PRN for SHORTNESS OF BREATH, (Reported) Fluticasone Propionate (Fluticasone Propionate) 16 Gm [place].susp, 2 SPRAY NARES BID PRN for CONGESTION, (Reported) Allergies Coded Allergies: cephalexin (Verified Allergy, Intermediate, rash/hives, 08/13/19) JAMAAL MCKEON MD Oct 31, 2020 10:02
[2020-10-31 10:40] LABS: HEP C VIRUS AB INDEX SOURCE PT < 0.0 INDEX (0.0-0.8); HEPATITIS B SURFACE ANTIGEN NEGATIVE (NEGATIVE)
[2020-10-31 14:00] VITALS: BP 158/73
[2020-10-31] MEDS: ROSUVASTATIN 10 MG TAB (CRESTOR) PO SCH (20:56)
[2020-10-31] MEDS: SERTRALINE HCL 50 MG TAB PO SCH (20:57)
[2020-10-31 22:00] VITALS: BP 156/73
[2020-11-01 06:00] VITALS: BP 148/68
[2020-11-01 08:13] LABS: HEMATOCRIT 35.1 % (42.0-52.0); HEMOGLOBIN 10.9 g/dl (13.5-17.5); MEAN CORPUSCULAR HEMOGLOBIN 29.9 pg (27.0-33.0); MEAN CORPUSCULAR HGB CONC 31.1 g/dl (32.0-36.5); MEAN CORPUSCULAR VOLUME 96.4 fl (80.0-96.0); PLATELET COUNT, AUTOMATED 317 10^3/uL (150-450); RED BLOOD COUNT 3.64 10^6/uL (4.30-6.10); WHITE BLOOD COUNT 8.6 10^3/uL (4.0-10.0)
[2020-11-01 08:25] LABS: BLOOD UREA NITROGEN 22 MG/DL (7-18); CALCIUM LEVEL 8.4 MG/DL (8.8-10.2); CARBON DIOXIDE LEVEL 28 MEQ/L (21-32); CHLORIDE LEVEL 107 MEQ/L (98-107); CREATININE FOR GFR 0.84 MG/DL (0.70-1.30); GLOMERULAR FILTRATION RATE > 60.0 (>35); GLUCOSE, FASTING 73 MG/DL (70-100); POTASSIUM SERUM 4.1 MEQ/L (3.5-5.1); SODIUM LEVEL 142 MEQ/L (136-145)
[2020-11-01] MEDS: ENOXAPARIN 40MG/0.4ML SYRINGE (J1650 PER 10MG) SC SCH (09:00)
[2020-11-01] MEDS: SILVER SULFADIAZINE 1% CR 50 GM JAR TOP SCH (09:00)
[2020-11-01] MEDS: TAMSULOSIN 0.4 MG CAP PO SCH (10:07)
[2020-11-01 10:08] VITALS: BP 148/68
[2020-11-01] MEDS: atenoloL 25 MG TAB PO SCH (10:08)
[2020-11-01] MEDS: ACETAMINOPHEN TAB 650MG DOSE (2X325MG) PO SCH (10:08)
[2020-11-01] MEDS: LACTOBACILLUS ACIDOPHILUS CAP (BACID) PO SCH (10:08)
--- NOTE | 2020-11-01 10:38 | DS.PDOC ---
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 "WE NEED 24HRS NOTICE." NO NEW ISSUES OVERNIGHT. DISCHARGE PE: VITALS: SEE BELOW General: no respiratory distress Arousable. disoriented to date. aaox [address] HEENT: Face is symmetric. Moist mucous membranes. Neck: No JVD, no thyromegaly. Lungs: Diminished with fine expiratory wheezing bilaterally. Heart: S1 and S2 sinus rhythm. Abdomen: Soft, nontender, nondistended, positive bowel sounds. Extremities: No cyanosis or clubbing. LABS/MICRO/IMAGING: SEE BELOW TIME SPENT ON DISCHARGE: 30 MIN. Vital Signs/I&Os Vital Signs Date Time Temp Pulse Resp B/P (MAP) Pulse Ox O2 Delivery O2 Flow Rate FiO2 11/01/20 10:08 64 148/68 11/01/20 06:00 98.3 20 94 Nasal Cannula 2.0 I&O- Last 24 Hours up to 6 AM 11/01/20 06:00 Intake Total 650 ml Output Total 0 ml Balance 650 ml Laboratory Data Labs 24H Laboratory Tests 2 11/01/20 07:09: Nucleated Red Blood Cells % (auto) 0.0, Anion Gap 7L, Glomerular Filtration Rate > 60.0, Calcium Level 8.4L CBC/BMP Laboratory Tests 11/01/20 07:09 Microbiology Microbiology 10/27/20 Acid Fast Stain, Received Pending 10/27/20 Mycobacterial Culture, Received Pending 10/27/20 Fungal Smear, Received Pending 10/27/20 Fungal Culture, Received Pending 10/27/20 Gram Stain - Final, Complete 10/27/20 Body Fluid Culture - Final, Complete 10/27/20 Anaerobic Culture - Final, Complete Discharge Medications Scheduled Acetaminophen (Acetaminophen) 325 Mg Tablet, 650 MG PO BID, (Reported) Atenolol (Atenolol) 25 Mg Tablet, 25 MG PO DAILY, (Reported) Ergocalciferol (Vitamin D2) (Vitamin D2) 50,000 Units Cap, 50,000 UNITS PO Q MONTH, (Reported) 1st OF THE MONTH Ferrous Sulfate (Ferrous Sulfate) 324 Mg Tablet.dr, 324 MG PO QHS, (Reported) Lactobacillus Acidophilus (Probiotic) 1 Each Capsule, 1 CAP PO DAILY, (Reported) Melatonin (Melatonin) 3 Mg Tablet, 3 MG PO QHS, (Reported) Nitrofurantoin Monohyd/M-Cryst (Nitrofurantoin [place]-Mcr 100 mg) 100 Mg Capsule, 100 MG PO QHS, (Reported) Potassium Chloride (Potassium Chloride) 10 Meq Capsule.er, 20 MEQ PO DAILY, (Reported) Rosuvastatin Calcium (Rosuvastatin Calcium) 40 Mg Tablet, 20 MG PO QHS, (Reported) Sertraline HCl (Sertraline HCl) 50 Mg Tablet, 50 MG PO QHS, (Reported) Tamsulosin HCl (Flomax) 0.4 Mg Cap, 0.4 MG PO DAILY, (Reported) Torsemide (Torsemide) 10 Mg Tablet, 10 MG PO Q2D, (Reported) levoFLOXacin (levoFLOXacin) 750 Mg Tablet, 750 MG PO Q48H Scheduled PRN Albuterol Sulf (Albuterol Sulfate) 2.5 Mg/3 Ml Vial.neb, 1 VIAL NEB Q4H PRN for SOB/WHEEZING, (Reported) Albuterol Sulfate (Proair Hfa) 8.5 Gm Hfa.aer.ad, 2 PUFF INH Q4H PRN for SHORTNESS OF BREATH, (Reported) Fluticasone Propionate (Fluticasone Propionate) 16 Gm [place].susp, 2 SPRAY NARES BID PRN for CONGESTION, (Reported) Allergies Coded Allergies: cephalexin (Verified Allergy, Intermediate, rash/hives, 08/13/19) JAMAAL MCKEON MD Nov 01, 2020 10:38
[2020-11-01 14:00] VITALS: BP 135/67
--- NOTE | 2020-11-03 09:29 | ECHO ---
DATE OF PROCEDURE: 10/29/2020 Age: 85 Gender: Male REFERRING PHYSICIAN: Lyssa Saeed MD PATIENT LOCATION: Room 5143 REASON FOR THE STUDY: Shortness of breath.. MEASUREMENTS: 2D measurements: IVS 1.2 cm LV 4.2 cm LVPW 1.2 cm LA 3.1 cm Aorta 3.4 cm IVC 2.0 cm Doppler measurements: Peak velocity across the aorta valve 1.8 m/s Peak velocity across the LVOT 1.1 m/s Peak gradient across the aortic valve 13 mmHg Mean gradient across the aortic valve 5 mmHg. Mitral E 0.80, mitral A 0.75 with a ratio of 1.1 Maximum tricuspid valve velocity 2.3 m/s 2D COMMENTS: 1. Normal left ventricular size and systolic function with an estimated left ventricular ejection fraction (LVEF) of 60 to 65%. Subjectively, there is mild concentric left ventricular hypertrophy. 2. Normal left atrium. Normal right atrium and right ventricle. 3. The atrial septum appears to be normal without evidence of defect or shunt. Normal aortic root. 4. No pericardial effusion seen. 5. Mildly calcified aortic valve with normal leaflet excursion. Mildly calcified mitral annulus with normal anterior mitral valve leaflet motion. Normal tricuspid valve. The pulmonic valve and proximal pulmonary artery branches were not well visualized. 6. The inferior vena cava was dilated. Central venous pressure most likely elevated. Doppler: It detects some mildly aortic regurgitation, mild mitral regurgitation and mild tricuspid regurgitation. The calculated pulmonary artery systolic pressure values between 30 to 40 mmHg. Abnormal relaxation pattern was noted across the mitral valve annulus consistent with grade 2 left ventricular diastolic dysfunction. IMPRESSION: 1. Normal global left ventricular systolic function with probably mild concentric left ventricular hypertrophy. There are some features of grade 2 left ventricular diastolic dysfunction, left ventricular end diastolic pressure might be elevated. 2. Aortic valve sclerosis with mild aortic regurgitation and trivial aortic stenosis. 3. Mitral annulus calcification with mild mitral regurgitation. 4. Mild tricuspid regurgitation with mild pulmonary hypertension. 5. There are some features of elevated central venous pressure, the inferior vena cava was mildly enlarged. MTDD
[2020-11-04 13:11] LABS: BODY FLUID CULTURE Not indicated. (.); LEGIONELLA ANTIGEN URINE Negative (Negative); ORGANISM ID Not indicated. (.); SPECIMEN SOURCE Urine (.); URINE STREP PNEUMONIAE ANTIGEN Negative (Negative)
== END 2020-11-01 15:30 | disposition home health service (06) | DRG 193 ==
LOC: EDBD 11:36 → M ED 11:36 → M ED INP 14:53 → ENRESERV 15:20 → M MS5PR 17:30
PROVIDERS: ADMIT Internal Medicine; ATTEND General Practice
PROC: 0W9B3ZX Drainage of Left Pleural Cavity, Percutaneous Approach, Diagnostic (ICD-10-PCS; principal; 2020-10-27 15:30)
DX: J18.9 Pneumonia, unspecified organism (principal); G93.41 Metabolic encephalopathy; R32 Unspecified urinary incontinence; R15.9 Full incontinence of feces; F03.90 Unspecified dementia, unspecified severity, without behavioral disturbance, psychotic disturbance, mood disturbance, and anxiety; I12.9 Hypertensive chronic kidney disease with stage 1 through stage 4 chronic kidney disease, or unspecified chronic kidney disease; G47.00 Insomnia, unspecified; N40.1 Benign prostatic hyperplasia with lower urinary tract symptoms; E78.5 Hyperlipidemia, unspecified; N18.9 Chronic kidney disease, unspecified; G31.83 Neurocognitive disorder with Lewy bodies; R53.83 Other fatigue; R53.81 Other malaise; F41.9 Anxiety disorder, unspecified; R26.89 Other abnormalities of gait and mobility; R53.1 Weakness; F32.9 Major depressive disorder, single episode, unspecified; Z79.899 Other long term (current) drug therapy; Z88.1 Allergy status to other antibiotic agents; Z96.642 Presence of left artificial hip joint; Z87.891 Personal history of nicotine dependence; Z20.822 Contact with and (suspected) exposure to COVID-19; Z99.81 Dependence on supplemental oxygen

== ENCOUNTER → 2020-12-17 | Outpatient (CLI) | payer MEDICARE ==
[~2020-12-17] MED LIST changes: +FLUTISP NARES; +LEVO750T14 PO; +PROBCAP14 PO; +SERT50TA29 PO
--- NOTE | 2020-12-17 15:02 | REP ---
INDICATION: COALWORKER'S PNEUMOCONIOSIS COMPARISON: 10/27/2020 TECHNIQUE: PA and lateral. FINDINGS: Current examination demonstrates moderate to large left pleural effusion and left lower lobe consolidation increased from most recent prior examination dated 10/27/2020 at 3:40 p.m.. The right hemithorax appears clear. No obvious pneumothorax identified IMPRESSION: Increased left pleural effusion and left lower lobe consolidation/collapse. <Electronically signed by Kenny Denson > 12/17/20 [id number]
== END ==
LOC: M RAD 14:32
PROVIDERS: ATTEND Internal Medicine Pulmonary Disease
DX: J90 Pleural effusion, not elsewhere classified (principal)

== ENCOUNTER → 2021-01-12 | Outpatient (CLI) | payer MEDICARE ==
[~2021-01-12] MED LIST changes: +ERGO500029 PO; +LIDOCAINE 1% MDV 20ML VIAL As Ordered ONE; +METH-855 PO; +SODIUM BICARBONATE 8.4% INJ 50MEQ 50 ML VIAL As Ordered ONE
[2021-01-12 09:50] LABS: BASO % 0.4 % (0.0-1.0); EOS # 0.3 10^3/uL (0.0-0.5); EOS % 2.9 % (0.0-3.0); HEMOGLOBIN 11.9 g/dl (13.5-17.5); LYMPH % 10.1 % (24.0-44.0); MEAN CORPUSCULAR HEMOGLOBIN 30.4 pg (27.0-33.0); MEAN CORPUSCULAR HGB CONC 30.5 g/dl (32.0-36.5); MEAN CORPUSCULAR VOLUME 99.7 fl (80.0-96.0); MONO # 0.7 10^3/uL (0.0-0.8); MONO % 7.1 % (2.0-8.0); NEUTROPHILS # 7.9 10^3/uL (1.5-8.5); NEUTROPHILS % 79.2 % (36.0-66.0); PLATELET COUNT, AUTOMATED 331 10^3/uL (150-450); RED BLOOD COUNT 3.91 10^6/uL (4.30-6.10)
[2021-01-12 10:02] LABS: INR 0.98; PROTHROMBIN TIME 13.2 SECONDS (12.5-14.3)
[2021-01-12 10:18] LABS: ALBUMIN 3.4 GM/DL (3.2-5.2); BILIRUBIN,TOTAL 0.3 MG/DL (0.2-1.0); CREATININE FOR GFR 1.52 MG/DL (0.70-1.30); GLOMERULAR FILTRATION RATE 46.5 (>35); POTASSIUM SERUM 3.6 MEQ/L (3.5-5.1); TOTAL PROTEIN 7.8 GM/DL (6.4-8.2)
--- NOTE | 2021-01-12 10:55 | REP ---
INDICATION: POST THORA, 2 VIEW. COMPARISON: Comparison chest x-ray 17 December 2020.. TECHNIQUE: AP and lateral views of the chest are acquired. FINDINGS: There is improvement noted in the left pleural effusion in the interval since the December 17, 2020 study. The patient is status post left thoracentesis. Cardiomegaly is observed unchanged. Pulmonary vasculature is not increased. There is no visible pneumothorax. There are degenerative changes in the thoracic spine. Oxygen delivery tubing is noted. IMPRESSION: No evidence of pneumothorax. Improvement noted in the left pleural effusion post thoracentesis. <Electronically signed by Florian Regalado > 01/12/21 [id number]
[2021-01-12 11:00] LABS: APPEARANCE, BODY FLUID HAZY (CLEAR); PH BODY FLUID 7.512 UNITS (NOT ESTABLISHED); PLEURAL FL COLOR YELLOW (COLORLESS); SOURCE, BODY FLUID PLEURAL; SOURCE, BODY FLUID pH PLEURAL
[2021-01-12 11:22] LABS: AMYLASE, BODY FLUID 47 U/L (NOT ESTABLISHED); LDH, BODY FLUID 114 U/L (NOT ESTABLISHED); SOURCE, BODY FLUID AMYLASE PLEURAL; SOURCE, BODY FLUID GLUCOSE PLEURAL; SOURCE, BODY FLUID LDH PLEURAL; SOURCE, BODY FLUID TOT PROTEIN PLEURAL; TOTAL PROTEIN, BODY FLUID 5.3 G/DL (NOT ESTABLISHED)
[2021-01-12 12:12] VITALS: BP 127/61
--- NOTE | 2021-01-12 16:25 | REP ---
INDICATION: LT PLEURAL EFFUSION The patient has a history of left pleural effusion COMPARISON: None. TECHNIQUE: The procedure was performed by Chyna Lunsford [facility], under the direct supervision of Dr. Regalado The risks and benefits of the procedure were explained to the patient and an informed consent was obtained both verbally and written. Directly prior to the start of the procedure a formal time-out was completed in the procedure room. Pleural fluid in left lung zone was localized using ultrasound guidance. The skin was prepped and draped in a sterile fashion. Ten ML of buffered lidocaine was used as a local anesthetic. Using ultrasound guidance an 8-Wolof multi side-hole catheter was inserted using trocar technique. FINDINGS: Seven hundred sixty-five mL of yellow colored fluid was withdrawn and sent to the laboratory for further analysis. The patient tolerated the procedure well and there were no immediate complications. After the appropriate amount of monitored convalescence, the patient was discharged from the department. IMPRESSION: Ultrasound-guided left thoracentesis with removal of 765 mL of pleural fluid. <Electronically signed by Chyna Lunsford > 01/12/21 1606 <Electronically signed by Florian Regalado > 01/12/21 1621
== END ==
LOC: M IRPRO 09:12
PROVIDERS: ATTEND Internal Medicine Pulmonary Disease
DX: J90 Pleural effusion, not elsewhere classified (principal); Z79.899 Other long term (current) drug therapy; Z51.81 Encounter for therapeutic drug level monitoring

== ENCOUNTER → 2021-02-20 | Outpatient (REF) ==
[~2021-02-20] MED LIST changes: -LIDOCAINE 1% MDV 20ML VIAL As Ordered ONE; -SODIUM BICARBONATE 8.4% INJ 50MEQ 50 ML VIAL As Ordered ONE
[2021-02-20 15:33] LABS: APPEARANCE, URINE TURBID (CLEAR); BACTERIA, URINE AUTO NEGATIVE (NEGATIVE); BILIRUBIN, URINE AUTO NEGATIVE (NEGATIVE); BLOOD, URINE BLOOD 3+ (NEGATIVE); CALCIUM OXALATE CRYSTALS SMALL; COLOR, URINE AMBER (YELLOW); GLUCOSE, URINE (UA) AUTO NEGATIVE (NEGATIVE); KETONE, URINE AUTO NEGATIVE (NEGATIVE); LEUKOCYTE ESTERASE, URINE AUTO 2+ (NEGATIVE); MUCUS, URINE SMALL (NEGATIVE); NITRITE, URINE AUTO NEGATIVE (NEGATIVE); PROTEIN, URINE AUTO 3+ mg/dL (NEGATIVE); RBC, URINE AUTO TNTC /HPF (0-3); SPECIFIC GRAVITY URINE AUTO 1.017 (1.002-1.035); SQUAMOUS EPITHELIAL CELL UR AU 0 /HPF (0-6); TRANSITIONAL EPITHELIAL AUTO 1 /HPF; UROBILINOGEN, URINE AUTO 0.2 mg/dL (0.0-2.0); WBC, URINE AUTO TNTC /HPF (0-3)
== END ==
LOC: M LAB REF 14:47
PROVIDERS: ATTEND Internal Medicine Pulmonary Disease
DX: Z00.00 Encounter for general adult medical examination without abnormal findings (principal)

== ENCOUNTER → 2021-04-15 | Outpatient (REF) ==
[2021-04-15 16:50] LABS: AMORPHOUS SEDIMENT SMALL (NEGATIVE); APPEARANCE, URINE CLOUDY (CLEAR); BACTERIA, URINE AUTO NEGATIVE (NEGATIVE); BILIRUBIN, URINE AUTO NEGATIVE (NEGATIVE); BLOOD, URINE BLOOD 3+ (NEGATIVE); COLOR, URINE YELLOW (YELLOW); GLUCOSE, URINE (UA) AUTO NEGATIVE (NEGATIVE); KETONE, URINE AUTO NEGATIVE (NEGATIVE); LEUKOCYTE ESTERASE, URINE AUTO 3+ (NEGATIVE); NITRITE, URINE AUTO NEGATIVE (NEGATIVE); PROTEIN, URINE AUTO 2+ mg/dL (NEGATIVE); RBC, URINE AUTO 45 /HPF (0-3); SPECIFIC GRAVITY URINE AUTO 1.012 (1.002-1.035); SQUAMOUS EPITHELIAL CELL UR AU 0 /HPF (0-6); UROBILINOGEN, URINE AUTO 0.2 mg/dL (0.0-2.0); WBC, URINE AUTO 91 /HPF (0-3)
== END ==
LOC: M LAB REF 15:42
PROVIDERS: ATTEND Internal Medicine Pulmonary Disease
DX: Z00.00 Encounter for general adult medical examination without abnormal findings (principal)

== ENCOUNTER → 2021-05-12 | Outpatient (REF) ==
[2021-05-12 15:22] LABS: APPEARANCE, URINE CLOUDY (CLEAR); BACTERIA, URINE AUTO 1+ (NEGATIVE); BILIRUBIN, URINE AUTO NEGATIVE (NEGATIVE); BLOOD, URINE BLOOD 2+ (NEGATIVE); COLOR, URINE YELLOW (YELLOW); GLUCOSE, URINE (UA) AUTO NEGATIVE (NEGATIVE); KETONE, URINE AUTO NEGATIVE (NEGATIVE); LEUKOCYTE ESTERASE, URINE AUTO 3+ (NEGATIVE); MUCUS, URINE SMALL (NEGATIVE); NITRITE, URINE AUTO NEGATIVE (NEGATIVE); PROTEIN, URINE AUTO 2+ mg/dL (NEGATIVE); RBC, URINE AUTO 59 /HPF (0-3); SPECIFIC GRAVITY URINE AUTO 1.014 (1.002-1.035); SQUAMOUS EPITHELIAL CELL UR AU 0 /HPF (0-6); UROBILINOGEN, URINE AUTO 0.2 mg/dL (0.0-2.0); WBC, URINE AUTO 86 /HPF (0-3)
== END ==
LOC: M LAB REF 14:26
PROVIDERS: ATTEND Internal Medicine Pulmonary Disease
DX: Z00.00 Encounter for general adult medical examination without abnormal findings (principal)

== ENCOUNTER → 2021-06-23 | Outpatient (REF) ==
[2021-06-23 13:51] LABS: AMORPHOUS SEDIMENT SMALL (NEGATIVE); APPEARANCE, URINE TURBID (CLEAR); BACTERIA, URINE AUTO 2+ (NEGATIVE); BILIRUBIN, URINE AUTO NEGATIVE (NEGATIVE); BLOOD, URINE BLOOD 2+ (NEGATIVE); COLOR, URINE AMBER (YELLOW); GLUCOSE, URINE (UA) AUTO NEGATIVE (NEGATIVE); KETONE, URINE AUTO TRACE mg/dL (NEGATIVE); LEUKOCYTE ESTERASE, URINE AUTO 3+ (NEGATIVE); MUCUS, URINE SMALL (NEGATIVE); NITRITE, URINE AUTO NEGATIVE (NEGATIVE); PROTEIN, URINE AUTO 2+ mg/dL (NEGATIVE); RBC, URINE AUTO 40 /HPF (0-3); SPECIFIC GRAVITY URINE AUTO 1.017 (1.002-1.035); SQUAMOUS EPITHELIAL CELL UR AU 0 /HPF (0-6); WBC, URINE AUTO TNTC /HPF (0-3)
== END ==
LOC: M LAB REF 13:28
PROVIDERS: ATTEND Internal Medicine Pulmonary Disease
DX: Z00.00 Encounter for general adult medical examination without abnormal findings (principal)

== ENCOUNTER → 2021-07-23 | Outpatient (REF) ==
[2021-07-23 11:50] LABS: APPEARANCE, URINE TURBID (CLEAR); BACTERIA, URINE AUTO 2+ (NEGATIVE); BILIRUBIN, URINE AUTO NEGATIVE (NEGATIVE); BLOOD, URINE BLOOD 3+ (NEGATIVE); COLOR, URINE AMBER (YELLOW); GLUCOSE, URINE (UA) AUTO NEGATIVE (NEGATIVE); KETONE, URINE AUTO NEGATIVE (NEGATIVE); LEUKOCYTE ESTERASE, URINE AUTO 3+ (NEGATIVE); MUCUS, URINE SMALL (NEGATIVE); NITRITE, URINE AUTO POSITIVE (NEGATIVE); PROTEIN, URINE AUTO 2+ mg/dL (NEGATIVE); RBC, URINE AUTO 122 /HPF (0-3); SPECIFIC GRAVITY URINE AUTO 1.014 (1.002-1.035); SQUAMOUS EPITHELIAL CELL UR AU 2 /HPF (0-6); UROBILINOGEN, URINE AUTO 0.2 mg/dL (0.0-2.0); WBC, URINE AUTO TNTC /HPF (0-3)
== END ==
LOC: M LAB REF 10:27
PROVIDERS: ATTEND Internal Medicine Pulmonary Disease
DX: Z11.52 Encounter for screening for COVID-19 (principal)

== ENCOUNTER 2022-06-24 10:35 | Inpatient (IN) | payer MEDICARE ==
[~2022-06-24] VITALS: Ht 172.7 cm; Wt 81.2 kg
[~2022-06-24 10:35] MED LIST changes: +ALBU2.5V10 NEB; -ALBU83IN NEB; +BENA-8 PO; -BENA20TA8 PO; +LEVO1TAB39 PO; -LEVO500T3 PO; -POTA10CA32 PO; +POTA10CA33 PO
[2022-06-24 11:21] LABS: VENOUS BASE EXCESS 6.2 (-2.0-2.0); VENOUS HCO3 32.8 MEQ/L (23.0-27.0); VENOUS O2 SATURATION 95.5 % (60.0-80.0); VENOUS PARTIAL PRESSURE CO2 55.5 mmHg (38.0-50.0); VENOUS PH 7.389 UNITS (7.330-7.430); VENOUS TOTAL CO2 34.5 MEQ/L (24.0-28.0)
[2022-06-24 11:23] LABS: BASO % 0.5 % (0.0-1.0); HEMATOCRIT 41.1 % (42.0-52.0); HEMOGLOBIN 12.6 g/dl (13.5-17.5); LYMPH # 0.4 10^3/uL (1.5-5.0); LYMPH % 7.2 % (24.0-44.0); MEAN CORPUSCULAR HEMOGLOBIN 30.1 pg (27.0-33.0); MEAN CORPUSCULAR HGB CONC 30.7 g/dl (32.0-36.5); MEAN CORPUSCULAR VOLUME 98.1 fl (80.0-96.0); MONO # 0.7 10^3/uL (0.0-0.8); MONO % 10.7 % (2.0-8.0); NEUTROPHILS % 80.9 % (36.0-66.0); PLATELET COUNT, AUTOMATED 290 10^3/uL (150-450); RED BLOOD COUNT 4.19 10^6/uL (4.30-6.10); WHITE BLOOD COUNT 6.1 10^3/uL (4.0-10.0)
[2022-06-24 11:51] LABS: BILIRUBIN,DIRECT 0.2 MG/DL (<0.4)
[2022-06-24] MEDS ORDERED: ACETAMINOPHEN 650MG SUPP PR ONE (11:55)
[2022-06-24] MEDS ORDERED: NS 1,000 ML IV SCH (11:55)
[2022-06-24] MEDS ORDERED: LevoFLOXacin IV 750 MG in IV 1 EA IV ONE (11:55)
[2022-06-24 12:00] LABS: ALBUMIN 2.9 G/DL (3.2-5.2); BILIRUBIN,TOTAL 0.4 MG/DL (0.3-1.2); CALCIUM LEVEL 8.8 MG/DL (8.3-10.6); CREATININE FOR GFR 2.03 MG/DL (0.70-1.30); GLOMERULAR FILTRATION RATE 33.2 (>35); THYROID STIMULATING HORMONE 2.331 uIU/ML (0.55-4.78); TOTAL PROTEIN 7.2 G/DL (5.7-8.2)
[2022-06-24 12:22] LABS: POTASSIUM SERUM 4.7 MMOL/L (3.5-5.1)
[2022-06-24] MEDS ORDERED: STIO1AER INH (14:40)
[2022-06-24] MEDS ORDERED: POTA-151 PO ×2 (14:40)
[2022-06-24] MEDS ORDERED: HOME MED LIST COMPLETE! XX SCH (14:45)
[2022-06-24] MEDS ORDERED: ACETAMINOPHEN TAB 650MG DOSE (2X325MG) PO PRN (15:35)
[2022-06-24] MEDS ORDERED: BISACODYL 10MG SUPP PR ONE (15:45)
[2022-06-24] MEDS ORDERED: ACETAMINOPHEN 325MG SUPP PR PRN (15:45)
[2022-06-24] MEDS: NS 1,000 ML IV SCH (16:25)
[2022-06-24] MEDS: PIPERACILLIN/TAZOBACTAM SOD 3.375 GM in D5W MINI-BAG PLUS 50 ML IV SCH (18:18)
[2022-06-24] MEDS ORDERED: OSELTAMIVIR PHOSPHATE 75 MG CAP (TAMIFLU) PO ONE (19:05)
[2022-06-24] MEDS: IPRATROPIUM 0.5MG/ALBUTEROL 2.5MG INH SOL UD 3ML (DUONEB) NEB SCH (20:16)
[2022-06-24] MEDS: FLUCONAZOLE 100 MG TAB PO SCH (20:30)
[2022-06-24] MEDS: OSELTAMIVIR PHOSPHATE 30MG CAPSULE PO SCH (20:30)
[2022-06-24] MEDS ORDERED: VANCOMYCIN HCL 750 MG, VIAL MATE ADAPTER 1 EACH in D5W 250 ML IV ONE ×2 (21:00→22:00)
[2022-06-24 23:00] VITALS: BP 146/69
[2022-06-25] MEDS: HEPARIN SOD (PORCINE) 5000UNITS/ML 1ML VIAL/SYRINGE SC SCH ×3 (00:32→22:06)
[2022-06-25] MEDS: NS 1,000 ML IV SCH ×4 (00:39→22:06)
[2022-06-25] MEDS: PIPERACILLIN/TAZOBACTAM SOD 3.375 GM in D5W MINI-BAG PLUS 50 ML IV SCH ×5 (01:52→22:06)
[2022-06-25 06:00] VITALS: BP 133/75
[2022-06-25 06:39] LABS: BASO % 0.2 % (0.0-1.0); HEMATOCRIT 41.3 % (42.0-52.0); HEMOGLOBIN 12.4 g/dl (13.5-17.5); LYMPH # 0.8 10^3/uL (1.5-5.0); LYMPH % 8.7 % (24.0-44.0); MEAN CORPUSCULAR HEMOGLOBIN 30.2 pg (27.0-33.0); MEAN CORPUSCULAR VOLUME 100.7 fl (80.0-96.0); MONO % 10.7 % (2.0-8.0); NEUTROPHILS # 7.4 10^3/uL (1.5-8.5); NEUTROPHILS % 80.1 % (36.0-66.0); PLATELET COUNT, AUTOMATED 223 10^3/uL (150-450); WHITE BLOOD COUNT 9.2 10^3/uL (4.0-10.0)
[2022-06-25 06:56] LABS: CREATININE FOR GFR 1.78 MG/DL (0.70-1.30); GLOMERULAR FILTRATION RATE 38.6 (>35); POTASSIUM SERUM 4.1 MMOL/L (3.5-5.1)
[2022-06-25 08:17] LABS: VANCOMYCIN RANDOM 18.5 UG/ML
[2022-06-25] MEDS ORDERED: VANCOMYCIN HCL 750 MG, VIAL MATE ADAPTER 1 EACH in D5W 250 ML IV SCH (09:00)
[2022-06-25] MEDS: FLUCONAZOLE 100 MG TAB PO SCH (09:57)
[2022-06-25] MEDS: BISACODYL 10MG SUPP PR SCH ×2 (11:09→22:05)
[2022-06-25 14:00] VITALS: BP 98/52
[2022-06-25 20:00] VITALS: BP 104/49
[2022-06-25] MEDS: SODIUM CHLORIDE HYPERTONIC 3% 15ML NEB SOL INH ONE (21:00)
[2022-06-25] MEDS: OSELTAMIVIR PHOSPHATE 30MG CAPSULE PO SCH (22:06)
[2022-06-26] MEDS: PIPERACILLIN/TAZOBACTAM SOD 3.375 GM in D5W MINI-BAG PLUS 50 ML IV SCH ×4 (05:06→22:30)
[2022-06-26 05:23] VITALS: BP 124/51
[2022-06-26 07:05] LABS: BASO % 0.2 % (0.0-1.0); EOS % 0.3 % (0.0-3.0); HEMATOCRIT 34.1 % (42.0-52.0); HEMOGLOBIN 10.5 g/dl (13.5-17.5); LYMPH # 0.9 10^3/uL (1.5-5.0); LYMPH % 9.9 % (24.0-44.0); MEAN CORPUSCULAR HEMOGLOBIN 30.9 pg (27.0-33.0); MEAN CORPUSCULAR HGB CONC 30.8 g/dl (32.0-36.5); MEAN CORPUSCULAR VOLUME 100.3 fl (80.0-96.0); MONO # 0.6 10^3/uL (0.0-0.8); MONO % 6.3 % (2.0-8.0); NEUTROPHILS # 7.4 10^3/uL (1.5-8.5); NEUTROPHILS % 82.7 % (36.0-66.0); PLATELET COUNT, AUTOMATED 227 10^3/uL (150-450); WHITE BLOOD COUNT 8.9 10^3/uL (4.0-10.0)
[2022-06-26 07:28] LABS: CALCIUM LEVEL 7.8 MG/DL (8.3-10.6); CREATININE FOR GFR 1.35 MG/DL (0.70-1.30); GLOMERULAR FILTRATION RATE 53.1 (>35); POTASSIUM SERUM 3.5 MMOL/L (3.5-5.1)
[2022-06-26] MEDS: FLUCONAZOLE 100 MG TAB PO SCH (08:47)
[2022-06-26] MEDS: BISACODYL 10MG SUPP PR SCH ×3 (08:48→22:31)
[2022-06-26] MEDS: IPRATROPIUM 0.5MG/ALBUTEROL 2.5MG INH SOL UD 3ML (DUONEB) NEB SCH ×5 (08:57→19:24)
[2022-06-26] MEDS: SODIUM CHLORIDE HYPERTONIC 3% 15ML NEB SOL INH ONE (09:00)
[2022-06-26] MEDS ORDERED: POTASSIUM CHLORIDE 10MEQ SR TABLET PO ONE (11:30)
[2022-06-26] MEDS: HEPARIN SOD (PORCINE) 5000UNITS/ML 1ML VIAL/SYRINGE SC SCH ×2 (11:31→20:18)
[2022-06-26] MEDS: MIRALAX *UNIT DOSE* 17GM PACKET PO SCH (12:32)
[2022-06-26 13:57] VITALS: BP 106/54
[2022-06-26] MEDS: SODIUM CHLORIDE HYPERTONIC 3% 15ML NEB SOL INH SCH ×2 (14:32→19:24)
[2022-06-26] MEDS: LINEZOLID 600MG TABLET (ZYVOX) PO SCH ×2 (14:48→20:17)
[2022-06-26] MEDS: OSELTAMIVIR PHOSPHATE 30MG CAPSULE PO SCH (20:17)
[2022-06-26 21:40] VITALS: BP 121/63
[2022-06-27] MEDS: SODIUM CHLORIDE HYPERTONIC 3% 15ML NEB SOL INH SCH ×4 (01:12→19:56)
[2022-06-27] MEDS: PIPERACILLIN/TAZOBACTAM SOD 3.375 GM in D5W MINI-BAG PLUS 50 ML IV SCH ×4 (05:48→22:31)
[2022-06-27 06:00] VITALS: BP_SYST 111; BP_SYST 90; BP_DIAS 55; BP_DIAS 65
[2022-06-27 06:38] LABS: BASO % 0.1 % (0.0-1.0); EOS % 0.1 % (0.0-3.0); HEMATOCRIT 35.2 % (42.0-52.0); HEMOGLOBIN 10.6 g/dl (13.5-17.5); LYMPH % 10.2 % (24.0-44.0); MEAN CORPUSCULAR HEMOGLOBIN 30.3 pg (27.0-33.0); MEAN CORPUSCULAR HGB CONC 30.1 g/dl (32.0-36.5); MEAN CORPUSCULAR VOLUME 100.6 fl (80.0-96.0); MONO % 8.5 % (2.0-8.0); NEUTROPHILS # 5.9 10^3/uL (1.5-8.5); NEUTROPHILS % 80.8 % (36.0-66.0); PLATELET COUNT, AUTOMATED 217 10^3/uL (150-450); WHITE BLOOD COUNT 7.3 10^3/uL (4.0-10.0)
[2022-06-27 06:39] LABS: LYMPH # 0.8 10^3/uL (1.5-5.0); MONO # 0.6 10^3/uL (0.0-0.8)
[2022-06-27 06:54] LABS: CALCIUM LEVEL 7.9 MG/DL (8.3-10.6); CREATININE FOR GFR 1.26 MG/DL (0.70-1.30); GLOMERULAR FILTRATION RATE 57.5 (>35); POTASSIUM SERUM 3.3 MMOL/L (3.5-5.1)
[2022-06-27] MEDS: IPRATROPIUM 0.5MG/ALBUTEROL 2.5MG INH SOL UD 3ML (DUONEB) NEB SCH ×4 (07:24→19:56)
[2022-06-27] MEDS ORDERED: POTASSIUM CHLORIDE 10MEQ SR TABLET PO ONE (07:45)
[2022-06-27] MEDS: BISACODYL 10MG SUPP PR SCH ×2 (09:36→20:20)
[2022-06-27] MEDS: HEPARIN SOD (PORCINE) 5000UNITS/ML 1ML VIAL/SYRINGE SC SCH ×2 (09:36→20:29)
[2022-06-27] MEDS: LINEZOLID 600MG TABLET (ZYVOX) PO SCH ×2 (09:36→20:29)
[2022-06-27] MEDS: MIRALAX *UNIT DOSE* 17GM PACKET PO SCH (09:36)
[2022-06-27 14:00] VITALS: BP 137/44
[2022-06-27 20:10] VITALS: BP 129/63
[2022-06-27] MEDS: OSELTAMIVIR PHOSPHATE 30MG CAPSULE PO SCH (20:29)
[2022-06-28] MEDS: SODIUM CHLORIDE HYPERTONIC 3% 15ML NEB SOL INH SCH ×4 (02:52→20:53)
[2022-06-28 05:00] VITALS: BP 110/59
[2022-06-28] MEDS: PIPERACILLIN/TAZOBACTAM SOD 3.375 GM in D5W MINI-BAG PLUS 50 ML IV SCH ×4 (05:43→23:10)
[2022-06-28 05:50] LABS: BASO % 0.2 % (0.0-1.0); EOS # 0.1 10^3/uL (0.0-0.5); EOS % 1.1 % (0.0-3.0); HEMATOCRIT 32.1 % (42.0-52.0); LYMPH # 0.7 10^3/uL (1.5-5.0); MEAN CORPUSCULAR HEMOGLOBIN 31.1 pg (27.0-33.0); MEAN CORPUSCULAR HGB CONC 31.2 g/dl (32.0-36.5); MEAN CORPUSCULAR VOLUME 99.7 fl (80.0-96.0); MONO # 0.5 10^3/uL (0.0-0.8); NEUTROPHILS # 3.3 10^3/uL (1.5-8.5); NEUTROPHILS % 73.3 % (36.0-66.0); PLATELET COUNT, AUTOMATED 198 10^3/uL (150-450); RED BLOOD COUNT 3.22 10^6/uL (4.30-6.10); WHITE BLOOD COUNT 4.5 10^3/uL (4.0-10.0)
[2022-06-28] MEDS: IPRATROPIUM 0.5MG/ALBUTEROL 2.5MG INH SOL UD 3ML (DUONEB) NEB SCH ×4 (06:01→20:53)
[2022-06-28 06:15] LABS: BLOOD UREA NITROGEN 15 MG/DL (9-23); CALCIUM LEVEL 7.9 MG/DL (8.3-10.6); CARBON DIOXIDE LEVEL 31 MMOL/L (20-31); CHLORIDE LEVEL 107 MMOL/L (98-107); CREATININE FOR GFR 1.09 MG/DL (0.70-1.30); GLOMERULAR FILTRATION RATE > 60.0 (>35); GLUCOSE, FASTING 74 MG/DL (74-106); POTASSIUM SERUM 3.8 MMOL/L (3.5-5.1); SODIUM LEVEL 143 MMOL/L (136-145)
[2022-06-28] MEDS: MIRALAX *UNIT DOSE* 17GM PACKET PO SCH (11:15)
[2022-06-28] MEDS: BISACODYL 10MG SUPP PR SCH ×2 (11:16→21:00)
[2022-06-28] MEDS: HEPARIN SOD (PORCINE) 5000UNITS/ML 1ML VIAL/SYRINGE SC SCH ×2 (11:17→21:39)
[2022-06-28] MEDS: LINEZOLID 600MG TABLET (ZYVOX) PO SCH ×2 (11:17→21:39)
[2022-06-28 14:00] VITALS: BP 128/60
[2022-06-28 14:34] LABS: TOTAL PROTEIN 5.4 G/DL (5.7-8.2)
[2022-06-28 20:00] VITALS: BP 122/75
[2022-06-28] MEDS: OSELTAMIVIR PHOSPHATE 30MG CAPSULE PO SCH (21:39)
[2022-06-29] MEDS: SODIUM CHLORIDE HYPERTONIC 3% 15ML NEB SOL INH SCH ×4 (03:07→19:28)
[2022-06-29 05:10] VITALS: BP 123/54
[2022-06-29] MEDS: PIPERACILLIN/TAZOBACTAM SOD 3.375 GM in D5W MINI-BAG PLUS 50 ML IV SCH ×2 (05:12→10:38)
[2022-06-29 05:35] LABS: BASO % 0.2 % (0.0-1.0); EOS # 0.1 10^3/uL (0.0-0.5); HEMATOCRIT 34.2 % (42.0-52.0); HEMOGLOBIN 10.6 g/dl (13.5-17.5); LYMPH # 0.6 10^3/uL (1.5-5.0); LYMPH % 12.1 % (24.0-44.0); MEAN CORPUSCULAR HEMOGLOBIN 30.6 pg (27.0-33.0); MEAN CORPUSCULAR VOLUME 98.8 fl (80.0-96.0); MONO # 0.5 10^3/uL (0.0-0.8); MONO % 9.3 % (2.0-8.0); NEUTROPHILS # 3.8 10^3/uL (1.5-8.5); NEUTROPHILS % 77.2 % (36.0-66.0); PLATELET COUNT, AUTOMATED 226 10^3/uL (150-450); RED BLOOD COUNT 3.46 10^6/uL (4.30-6.10); WHITE BLOOD COUNT 4.9 10^3/uL (4.0-10.0)
[2022-06-29 06:13] LABS: BLOOD UREA NITROGEN 12 MG/DL (9-23); CALCIUM LEVEL 7.8 MG/DL (8.3-10.6); CARBON DIOXIDE LEVEL 31 MMOL/L (20-31); CHLORIDE LEVEL 106 MMOL/L (98-107); CREATININE FOR GFR 0.94 MG/DL (0.70-1.30); GLOMERULAR FILTRATION RATE > 60.0 (>35); GLUCOSE, FASTING 98 MG/DL (74-106); POTASSIUM SERUM 3.5 MMOL/L (3.5-5.1); SODIUM LEVEL 144 MMOL/L (136-145)
[2022-06-29] MEDS: IPRATROPIUM 0.5MG/ALBUTEROL 2.5MG INH SOL UD 3ML (DUONEB) NEB SCH ×4 (07:35→19:28)
[2022-06-29] MEDS: MIRALAX *UNIT DOSE* 17GM PACKET PO SCH (09:00)
[2022-06-29] MEDS: guaiFENesin ER 600 MG TAB PO SCH ×2 (10:37→23:37)
[2022-06-29] MEDS: LINEZOLID 600MG TABLET (ZYVOX) PO SCH ×2 (10:37→23:37)
[2022-06-29] MEDS: BISACODYL 10MG SUPP PR SCH ×3 (10:38→23:52)
[2022-06-29] MEDS: HEPARIN SOD (PORCINE) 5000UNITS/ML 1ML VIAL/SYRINGE SC SCH ×2 (10:38→23:38)
[2022-06-29 13:06] LABS: APPEARANCE, BODY FLUID TURBID (CLEAR); PLEURAL FL COLOR RED (COLORLESS); SOURCE, BODY FLUID PLEURAL
[2022-06-29 13:15] VITALS: BP 128/64
[2022-06-29 13:30] VITALS: BP 139/64
[2022-06-29 13:50] LABS: SOURCE, BODY FLUID GLUCOSE PLEURAL
[2022-06-29 13:54] LABS: LDH, BODY FLUID 144 U/L (NOT ESTABLISHED); SOURCE, BODY FLUID LDH PLEURAL; SOURCE, BODY FLUID TOT PROTEIN PLEURAL; TOTAL PROTEIN, BODY FLUID 3.1 G/DL (NOT ESTABLISHED)
[2022-06-29 14:00] VITALS: BP 125/55
[2022-06-29 14:33] LABS: SOURCE, BODY FLUID pH PLEURAL
[2022-06-29] MEDS: LevoFLOXacin 750 MG TABLET PO SCH (14:50)
[2022-06-29 22:00] VITALS: BP 144/82
[2022-06-29] MEDS: OSELTAMIVIR PHOSPHATE 30MG CAPSULE PO SCH (23:38)
[2022-06-30] MEDS ORDERED: guaiFENesin/CODEINE SYRUP 5 ML UDC PO PRN (00:15)
[2022-06-30] MEDS ORDERED: BISACODYL 10MG SUPP PR PRN (00:15)
[2022-06-30] MEDS: SODIUM CHLORIDE HYPERTONIC 3% 15ML NEB SOL INH SCH ×4 (02:00→19:53)
[2022-06-30] MEDS: LevoFLOXacin 750 MG TABLET PO SCH (05:23)
[2022-06-30 06:00] VITALS: BP 130/73
[2022-06-30 06:23] LABS: BASO % 0.2 % (0.0-1.0); EOS % 0.3 % (0.0-3.0); HEMATOCRIT 33.9 % (42.0-52.0); HEMOGLOBIN 10.5 g/dl (13.5-17.5); LYMPH # 0.7 10^3/uL (1.5-5.0); LYMPH % 9.8 % (24.0-44.0); MEAN CORPUSCULAR HEMOGLOBIN 30.4 pg (27.0-33.0); MEAN CORPUSCULAR VOLUME 98.3 fl (80.0-96.0); MONO # 0.7 10^3/uL (0.0-0.8); MONO % 9.8 % (2.0-8.0); NEUTROPHILS # 5.3 10^3/uL (1.5-8.5); NEUTROPHILS % 79.6 % (36.0-66.0); PLATELET COUNT, AUTOMATED 259 10^3/uL (150-450); RED BLOOD COUNT 3.45 10^6/uL (4.30-6.10); WHITE BLOOD COUNT 6.6 10^3/uL (4.0-10.0)
[2022-06-30 06:55] LABS: BLOOD UREA NITROGEN 13 MG/DL (9-23); CARBON DIOXIDE LEVEL 30 MMOL/L (20-31); CHLORIDE LEVEL 107 MMOL/L (98-107); CREATININE FOR GFR 1.01 MG/DL (0.70-1.30); GLOMERULAR FILTRATION RATE > 60.0 (>35); GLUCOSE, FASTING 95 MG/DL (74-106); POTASSIUM SERUM 3.2 MMOL/L (3.5-5.1); SODIUM LEVEL 145 MMOL/L (136-145)
[2022-06-30] MEDS: IPRATROPIUM 0.5MG/ALBUTEROL 2.5MG INH SOL UD 3ML (DUONEB) NEB SCH ×4 (07:34→19:53)
[2022-06-30 07:40] VITALS: O2SAT 95
[2022-06-30] MEDS ORDERED: POTASSIUM CHLORIDE 10MEQ SR TABLET PO ONE (08:00)
[2022-06-30] MEDS: LINEZOLID 600MG TABLET (ZYVOX) PO SCH ×2 (09:55→21:44)
[2022-06-30] MEDS: HEPARIN SOD (PORCINE) 5000UNITS/ML 1ML VIAL/SYRINGE SC SCH ×2 (09:56→21:45)
[2022-06-30 14:00] VITALS: BP 132/74
[2022-06-30 14:33] VITALS: O2SAT 94
[2022-06-30] MEDS ORDERED: ACETAMINOPHEN TAB 650MG DOSE (2X325MG) PO PRN (17:05)
[2022-06-30] MEDS: OSELTAMIVIR PHOSPHATE 30MG CAPSULE PO SCH (21:44)
[2022-06-30 22:00] VITALS: BP 128/71
[2022-07-01] MEDS: SODIUM CHLORIDE HYPERTONIC 3% 15ML NEB SOL INH SCH ×3 (01:06→11:30)
[2022-07-01] MEDS: LevoFLOXacin 750 MG TABLET PO SCH (05:31)
[2022-07-01 06:00] VITALS: BP 137/57
[2022-07-01 06:26] LABS: BASO % 0.2 % (0.0-1.0); EOS # 0.1 10^3/uL (0.0-0.5); EOS % 1.5 % (0.0-3.0); HEMATOCRIT 33.5 % (42.0-52.0); HEMOGLOBIN 10.1 g/dl (13.5-17.5); LYMPH # 0.8 10^3/uL (1.5-5.0); LYMPH % 14.1 % (24.0-44.0); MEAN CORPUSCULAR HEMOGLOBIN 30.3 pg (27.0-33.0); MEAN CORPUSCULAR HGB CONC 30.1 g/dl (32.0-36.5); MEAN CORPUSCULAR VOLUME 100.6 fl (80.0-96.0); MONO # 0.7 10^3/uL (0.0-0.8); MONO % 12.4 % (2.0-8.0); NEUTROPHILS # 3.8 10^3/uL (1.5-8.5); NEUTROPHILS % 71.4 % (36.0-66.0); PLATELET COUNT, AUTOMATED 263 10^3/uL (150-450); RED BLOOD COUNT 3.33 10^6/uL (4.30-6.10); WHITE BLOOD COUNT 5.3 10^3/uL (4.0-10.0)
[2022-07-01 06:45] LABS: BLOOD UREA NITROGEN 13 MG/DL (9-23); CALCIUM LEVEL 8.3 MG/DL (8.3-10.6); CARBON DIOXIDE LEVEL 31 MMOL/L (20-31); CHLORIDE LEVEL 107 MMOL/L (98-107); CREATININE FOR GFR 0.96 MG/DL (0.70-1.30); GLOMERULAR FILTRATION RATE > 60.0 (>35); GLUCOSE, FASTING 90 MG/DL (74-106); POTASSIUM SERUM 3.7 MMOL/L (3.5-5.1); SODIUM LEVEL 144 MMOL/L (136-145)
[2022-07-01] MEDS: IPRATROPIUM 0.5MG/ALBUTEROL 2.5MG INH SOL UD 3ML (DUONEB) NEB SCH ×2 (07:40→11:30)
[2022-07-01 07:41] VITALS: O2SAT 98
[2022-07-01 07:48] VITALS: O2SAT 96
[2022-07-01] MEDS ORDERED: OSEL30CA PO (08:55)
[2022-07-01] MEDS ORDERED: LINE1TAB6 PO (08:55)
[2022-07-01] MEDS ORDERED: LEVO1TAB40 PO (08:55)
[2022-07-01] MEDS: HEPARIN SOD (PORCINE) 5000UNITS/ML 1ML VIAL/SYRINGE SC SCH (10:34)
[2022-07-01] MEDS: LINEZOLID 600MG TABLET (ZYVOX) PO SCH (10:34)
[2022-07-01 13:44] VITALS: BP 100/45
[2022-07-01 13:45] VITALS: BP 122/64
== END 2022-07-01 15:57 | disposition hospice, home (50) | DRG 177 ==
LOC: M ED 10:35 → EDBD 10:35 → M ED INP 15:34 → ENRESERV 21:02 → M MSPAV 23:00
PROVIDERS: ADMIT Internal Medicine; ATTEND Internal Medicine
PROC: 0W9B3ZX Drainage of Left Pleural Cavity, Percutaneous Approach, Diagnostic (ICD-10-PCS; principal; 2022-06-29 15:30)
DX: J86.9 Pyothorax without fistula (principal); J96.21 Acute and chronic respiratory failure with hypoxia; I50.32 Chronic diastolic (congestive) heart failure; I13.0 Hypertensive heart and chronic kidney disease with heart failure and stage 1 through stage 4 chronic kidney disease, or unspecified chronic kidney disease; N17.9 Acute kidney failure, unspecified; J90 Pleural effusion, not elsewhere classified; N39.0 Urinary tract infection, site not specified; G93.40 Encephalopathy, unspecified; K59.00 Constipation, unspecified; F03.90 Unspecified dementia, unspecified severity, without behavioral disturbance, psychotic disturbance, mood disturbance, and anxiety; Z66 Do not resuscitate; R62.7 Adult failure to thrive; E78.5 Hyperlipidemia, unspecified; R32 Unspecified urinary incontinence; R15.9 Full incontinence of feces; J44.9 Chronic obstructive pulmonary disease, unspecified; J10.1 Influenza due to other identified influenza virus with other respiratory manifestations; N18.30 Chronic kidney disease, stage 3 unspecified; B95.62 Methicillin resistant Staphylococcus aureus infection as the cause of diseases classified elsewhere; N40.1 Benign prostatic hyperplasia with lower urinary tract symptoms; I27.20 Pulmonary hypertension, unspecified; I08.3 Combined rheumatic disorders of mitral, aortic and tricuspid valves; I48.0 Paroxysmal atrial fibrillation; Z99.81 Dependence on supplemental oxygen; Z96.642 Presence of left artificial hip joint; Z87.891 Personal history of nicotine dependence; Z99.3 Dependence on wheelchair; Z74.01 Bed confinement status; Z79.899 Other long term (current) drug therapy; Z88.1 Allergy status to other antibiotic agents

== ENCOUNTER → 2022-08-30 | Outpatient (REF) ==
[~2022-08-30] MED LIST changes: +LEVO1TAB40 PO; +LINE1TAB6 PO; +OSEL30CA PO; +POTA-151 PO; +STIO1AER INH
[2022-08-30 15:07] LABS: APPEARANCE, URINE MANUAL CLEAR (CLEAR); BILIRUBIN, URINE MANUAL NEGATIVE (NEGATIVE); BLOOD URINE MANUAL NEGATIVE (NEGATIVE); COLOR, URINE MANUAL YELLOW (YELLOW); GLUCOSE, URINE (UA) MANUAL NEGATIVE (NEGATIVE); KETONE, URINE MANUAL NEGATIVE (NEGATIVE); LEUKOCYTE ESTERASE, URINE MAN NEGATIVE (NEGATIVE); NITRITE, URINE MANUAL NEGATIVE (NEGATIVE); PROTEIN, URINE MANUAL NEGATIVE (NEGATIVE); UROBILINOGEN, URINE MANUAL NORMAL (NORMAL)
== END ==
LOC: M LAB REF 14:53
DX: N39.0 Urinary tract infection, site not specified (principal)